=== PATIENT | female | born 1935 | race Hispanic/Latino ===

== ENCOUNTER 2017-02-09 10:15 | Emergency (ER) | payer MEDICARE ==
[2017-02-09 11:19] LABS: Bilirubin Negative (Negative); Blood, Urine Moderate (Negative); Glucose, Urine (Dipstick) Negative (Negative); Ketone, Urine Negative (Negative); Nitrite Positive (Negative); Protein, Urine (Dipstick) Negative (Neg-Trace); Urobilinogen 0.2 mg/dL (0.2-1.0)
[2017-02-09 11:24] LABS: Bacteria/HPF 3+ HPF (None Seen); Hyaline Casts/LPF 4-6 HYALINE CAST LPF (0-3 Hyaline); Squamous Epithelial None Seen HPF (0-3); WBC/HPF 21-50 HPF (0-3)
== END 2017-02-09 11:25 | disposition home or self-care (01) ==
LOC: ERS 10:15
DX: R60.0 Localized edema (principal); I48.91 Unspecified atrial fibrillation; M86.9 Osteomyelitis, unspecified; Z86.73 Personal history of transient ischemic attack (TIA), and cerebral infarction without residual deficits; E11.9 Type 2 diabetes mellitus without complications; E78.5 Hyperlipidemia, unspecified; I11.0 Hypertensive heart disease with heart failure; I50.9 Heart failure, unspecified; Z79.84 Long term (current) use of oral hypoglycemic drugs; Z79.899 Other long term (current) drug therapy
CPT/HCPCS: 81003; 81015; 87077; 87086; 87186; 99283

== ENCOUNTER 2017-02-10 20:58 | Emergency (ER) | payer MEDICARE ==
[2017-02-10 22:11] LABS: Bilirubin Negative (Negative); Blood, Urine Moderate (Negative); Glucose, Urine (Dipstick) Negative (Negative); Ketone, Urine Trace mg/dL (Negative); Nitrite Positive (Negative); Protein, Urine (Dipstick) 100 mg/dL (Neg-Trace); Urobilinogen 0.2 mg/dL (0.2-1.0)
[2017-02-10 22:12] LABS: Bacteria/HPF 4+ HPF (None Seen); Squamous Epithelial 0-3 HPF (0-3); WBC/HPF 21-50 HPF (0-3)
[2017-02-10 22:20] LABS: Hyaline Casts/LPF 0-3 HYALINE CAST LPF (0-3 Hyaline); Yeast-All Forms None Seen HPF (None Seen)
[2017-02-10 22:55] LABS: #Lymphocytes 1.2 thou/uL (1.20-3.40); #Monocytes 0.2 thou/uL (0.11-0.59); #Neutrophils 9.1 thou/uL (1.40-6.50); %Basophils 0.1 % (0.0-1.0); %Eosinophils 0.2 % (0.0-10.0); %Lymphocytes 11.2 % (21.0-51.0); %Monocytes 1.6 % (0.0-10.0); Hematocrit 32.6 % (36.0-47.0); Mean Platelet Volume 8.5 fL (7.4-10.4); Red Blood Cell (RBC) Count 3.62 mill/uL (4.20-5.40); White Blood Cell (WBC) Count 10.4 thou/uL (4.8-10.8)
[2017-02-10 23:03] LABS: Lactic Acid - Sepsis 0.9 mmol/L (0.5-2.2)
[2017-02-10 23:09] LABS: ALT (SGPT) Less than 7 U/L (8-55); AST (SGOT) 12 U/L (5-34); Alkaline Phosphatase 78 U/L (40-150); Anion Gap 12 mmol/L (10-20); BUN (Urea Nitrogen) 22 mg/dL (9.8-20.1); Bilirubin, Total 1.7 mg/dL (0.2-1.2); Calc. Creatinine Clearance 0 mL/min (70-130); Calcium 8.8 mg/dL (7.8-10.44); Carbon Dioxide 26 mmol/L (23-31); Chloride 97 mmol/L (98-107); Estimated GFR-MDRD 82; Globulin 4.3 g/dL (2.4-3.5); Protein, Total 7.2 g/dL (6.0-8.3)
[2017-02-10] MEDS ORDERED: cefTRIAXone\\ROCEPHIN 1 GM VIAL ONE (23:25)
== END 2017-02-11 00:03 | disposition home or self-care (01) ==
LOC: ERS 20:58
DX: N39.0 Urinary tract infection, site not specified (principal); B96.4 Proteus (mirabilis) (morganii) as the cause of diseases classified elsewhere; I50.9 Heart failure, unspecified; I48.91 Unspecified atrial fibrillation; M86.9 Osteomyelitis, unspecified; I69.30 Unspecified sequelae of cerebral infarction; E11.9 Type 2 diabetes mellitus without complications; E78.5 Hyperlipidemia, unspecified; I10 Essential (primary) hypertension; Z79.01 Long term (current) use of anticoagulants; Z92.21 Personal history of antineoplastic chemotherapy; Z79.899 Other long term (current) drug therapy
CPT/HCPCS: 36415; 80053; 81003; 81015; 83605; 85025; 87040; 96365; J0696

== ENCOUNTER 2017-04-21 19:33 | Inpatient (IN) | payer MEDICARE ==
[2017-04-21 20:05] LABS: Bilirubin Negative (Negative); Blood, Urine Moderate (Negative); Clarity TURBID (Clear); Glucose, Urine (Dipstick) Negative (Negative); Leukocyte Large (Negative); Nitrite Positive (Negative); Protein, Urine (Dipstick) 30 mg/dL (Neg-Trace); Urobilinogen 0.2 mg/dL (0.2-1.0); pH, Urine 8.5 (5.0-9.0)
[2017-04-21 20:07] LABS: Bacteria/HPF 4+ HPF (None Seen); Hyaline Casts/LPF 7-10 HYALINE CAST LPF (0-3 Hyaline); Pathc Cast-AUWi Flag 1.24 (0-2.49); Squamous Epithelial 0-3 HPF (0-3); WBC/HPF 21-50 HPF (0-3)
[2017-04-21 20:13] LABS: #Monocytes 0.4 thou/uL (0.11-0.59); #Neutrophils 13.1 thou/uL (1.40-6.50); %Basophils 0.3 % (0.0-1.0); %Eosinophils 0.1 % (0.0-10.0); %Lymphocytes 18.1 % (21.0-51.0); %Monocytes 2.2 % (0.0-10.0); %Neutrophils 79.4 % (42.0-75.0); Hemoglobin 10.7 g/dL (12.0-16.0); Mean Corpuscular HGB CONC 35.8 g/dL (32.0-36.0); Mean Corpuscular Hemoglobin 32.5 pg (27.0-31.0); Mean Corpuscular Volume 90.8 fl (81.0-99.0); Mean Platelet Volume 8.4 fL (7.4-10.4); Platelet Count 255 thou/uL (130-400); RBC Distribution Width 15.2 % (11.5-14.5); White Blood Cell (WBC) Count 16.5 thou/uL (4.8-10.8)
[2017-04-21 20:18] LABS: Yeast-All Forms None Seen HPF (None Seen)
[2017-04-21] MEDS ORDERED: Piperacillin/Tazobactam 4.5 GM in Sodium Chloride 0.9% 100 ML IVPB SCH (20:45)
[2017-04-21] MEDS ORDERED: Acetaminophen 650 MG Suppository ONE (21:16)
--- NOTE | 2017-04-21 21:24 | RAD ---
PORTABLE CHEST 04/21/17 PROVIDED CLINICAL HISTORY: Cough. FINDINGS: Comparison is made with study dated 10/27/16. Cardiac silhouette remains enlarged. Vascular calcification involve the aortic arch. The left lung ba se is poorly evaluated on the basis of cardiomegaly. A portion of the left hemidiaphragm is poorly se en which could indicate left basilar infiltrate. The right lung appears clear. No evidence for pneumo thorax or pleural fluid. IMPRESSION: Cardiomegaly with possibility of left basilar infiltrate not excluded. Consider correlation with a la teral view. POS: [facility]
[2017-04-21 21:27] LABS: Albumin 3.1 g/dL (3.4-4.8)
[2017-04-21 21:28] LABS: Chloride 99 mmol/L (98-107); Potassium 3.7 mmol/L (3.5-5.1); Sodium 133 mmol/L (136-145)
[2017-04-21 21:29] LABS: Calcium 8.9 mg/dL (7.8-10.44)
[2017-04-21 21:30] LABS: Globulin 4.1 g/dL (2.4-3.5); Glucose 180 mg/dL (83-110); Protein, Total 7.2 g/dL (6.0-8.3)
[2017-04-21 21:31] LABS: Anion Gap 14 mmol/L (10-20); Bilirubin, Total 1.3 mg/dL (0.2-1.2); Carbon Dioxide 24 mmol/L (23-31)
[2017-04-21 21:32] LABS: Alkaline Phosphatase 73 U/L (40-150)
[2017-04-21 21:33] LABS: Calc. Creatinine Clearance 0 mL/min (70-130); Estimated GFR-MDRD 79
[2017-04-21 21:34] LABS: BUN (Urea Nitrogen) 21 mg/dL (9.8-20.1)
[2017-04-21 21:35] LABS: ALT (SGPT) Less than 7 U/L (8-55); AST (SGOT) 9 U/L (5-34)
[2017-04-21] MEDS ORDERED: Acetaminophen 325 MG TAB PO PRN (22:25)
[2017-04-21] MEDS ORDERED: Ondansetron ODT 4 MG TAB SL PRN (22:25)
[2017-04-21] MEDS ORDERED: Ondansetron HCl/PF 4 MG/2 ML Vial IVP PRN (22:25)
[2017-04-21] MEDS ORDERED: Sodium Chloride 0.9% 1,000 ML IV SCH (22:30)
[2017-04-22] LABS: Lactic Acid 1.1 mmol/L (0.5-2.2)
[2017-04-22] MEDS ORDERED: Acetaminophen 650 MG Suppository PR PRN (04:33)
[2017-04-22] MEDS ORDERED: Acetaminophen 325 MG TAB PO PRN (04:33)
[2017-04-22] MEDS ORDERED: Bisacodyl 5 MG TAB PO PRN (04:33)
[2017-04-22] MEDS ORDERED: Senokot S 8.6-50 MG TAB PO PRN (04:55)
[2017-04-22] MEDS ORDERED: HumaLOG 300 UNITS/3 ML VIAL SC PRN (04:57)
[2017-04-22] MEDS ORDERED: Dextrose 5% in Water 1,000 ML IV PRN (04:57)
[2017-04-22] MEDS ORDERED: Dextrose 50% Abboject 50 ML SYRINGE SLOW IVP PRN (04:57)
--- NOTE | 2017-04-22 05:32 | HP ---
PRIMARY CARE PHYSICIAN: Dr. Jessica Lara CHIEF COMPLAINT: Cough and fever. HISTORY OF PRESENT ILLNESS: Ms. Us is a pleasant 81-year-old lady who was seen at [facility] on 04/22/2017. She started having cough 2 days ago. The cough was productive of minimal amount of sputum. She also reports having fevers, bodyaches and headaches. She denies any chest pain or shortness of breath. She has a chronic Fair catheter, which was replaced earlier this week. She denies any nausea, vomiting, diarrhea, or abdominal pain. REVIEW OF SYSTEMS: The following complete review of systems was negative, unless otherwise mentioned in the HPI or below: Constitutional: Weight loss or gain, ability to conduct usual activities. Skin: Rash, itching. Eyes: Double vision, pain. ENT/Mouth: Nose bleeding, neck stiffness, pain, tenderness. Cardiovascular: Palpitations, dyspnea on exertion, orthopnea. Respiratory: Shortness of breath, wheezing, cough, hemoptysis, fever or night sweats. Gastrointestinal: Poor appetite, abdominal pain, heartburn, nausea, vomiting, constipation, or diarrhea. Genitourinary: Urgency, frequency, dysuria, nocturia. Musculoskeletal: Pain, swelling. Neurologic/Psychiatric: Anxiety, depression. Allergy/Immunologic: Skin rash, bleeding tendency. 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 PAST SURGICAL HISTORY: Significant for open reduction internal fixation of femur, cholecystectomy, h ysterectomy, cataract surgery, knee and foot surgery. ALLERGIES: LASIX, NATURAL FIBER. SOCIAL HISTORY: The patient denies tobacco use, alcohol use or recreational drug use. CODE STATUS: I discussed her code status. She is FULL CODE. She lives at home. She reports that s he has been bed bound for several months. FAMILY HISTORY: No family history of premature coronary artery disease. CURRENT MEDICATIONS: These include tramadol 50 mg every 6 hours as needed, ascorbic acid 500 mg aicha y, vitamin B12 1000 mcg daily, pravastatin 20 mg daily, metoprolol succinate 50 mg daily, metformin 5 00 mg 2 times a day as needed, Imbruvica 140 mg tablets 3 tablets daily, Lasix 40 mg daily, lisinopri l 10 mg at bedtime, Eliquis 2.5 mg 2 times a day, potassium chloride 20 mEq daily, ferrous sulfate 32 5 mg daily, Colace 100 mg daily. PHYSICAL EXAMINATION: GENERAL: Ms. Us is awake and alert, not in acute distress. VITAL SIGNS: Blood pressure is 172/64. Pulse is 94. She is breathing at rate of 20 and saturating 96% on 2 liters of oxygen. Temperature is 102.4 degrees rectally. When she presented to the emergen cy room, she had a pulse of 106, respiratory rate of 23. EYES: No scleral icterus. No conjunctival pallor. ENT: Dry mucosal membranes, no oropharyngeal erythema or exudates. NECK: Supple, nontender, normal range of movement. Trachea is midline. RESPIRATORY: Accessory muscles of breathing are not active. Chest wall movements are symmetric bila terally. LUNGS: Clear to auscultation without wheeze, rhonchi or crepitations. ABDOMEN: Soft, nontender, bowel sounds heard, no hepatomegaly, no splenomegaly. CARDIOVASCULAR: S1 and S2 are heard, regular. Peripheral pulses palpable. No carotid bruit, no per icardial rub. GENITOURINARY: She has a Fair catheter in place. NEUROLOGIC: She has diminished power in both lower extremities, worse on the right side. She has a right facial droop. MUSCULOSKELETAL: Power in the extremities as described above. SKIN: No rashes or subcutaneous nodules. PSYCHIATRIC: Normal mood and normal affect, patient is oriented to person, place and time. LYMPHATIC: No cervical lymphadenopathy. LABORATORY DATA: Ms. Us labs and investigations were reviewed. I reviewed her electrocardiogram , which shows atrial fibrillation, no ST changes to suggest an acute coronary syndrome. I also revie wed her chest x-ray, which shows a possible left lower lobe infiltrate. Laboratory investigations showed leukocytosis with 15,500 white cells, of which 79.4% are neutrophils , normocytic anemia with hemoglobin of 10.7, normal platelet count, decreased sodium of 133, elevated blood urea nitrogen of 21, normal creatinine, elevated lactic acid of 3.0, which has decreased to 1. 1 subsequently, elevated total bilirubin of 1.3, otherwise unremarkable liver profile. Urinalysis is positive for blood, nitrite and leukocyte esterase. ASSESSMENT AND PLAN: Ms. Us is a pleasant 81-year-old lady who was seen at [facility] on 04/22/2017. Her problem list includes: 1. Sepsis: Ms. Us is presenting with sepsis. Source of infection likely pneumonia or urinary t ract infection. She will be admitted to the hospital and treated with broad spectrum antibiotics. W e will await blood cultures and urine cultures. 2. Hyponatremia; mild, we will recheck. 3. Dehydration: The patient is clinically dehydrated. We will provide gentle hydration, given her history of congestive heart failure. 4. Diabetes mellitus. I will start Accu-Cheks and insulin sliding scale. 5. Mildly elevated total bilirubin. Likely insignificant, given the unremarkable liver profile othe rwise. 6. History of stroke: Continue Eliquis. 7. Atrial fibrillation. Continue home medications including beta rosendo and Eliquis. 8. Dyslipidemia: Continue statins. 9. Hypertension: Monitor vital signs, titrate antihypertensives as needed. Many thanks for allowing me to participate in your patient's care. Please feel free to contact me wi th any questions or concerns. LEVEL OF RISK: High. LEVEL OF COMPLEXITY: High.
[2017-04-22] MEDS: traMADol HCl 50 MG TAB PO SCH ×4 (06:14→23:56)
[2017-04-22] MEDS: Piperacillin/Tazobactam 4.5 GM in Sodium Chloride 0.9% 100 ML IVPB SCH ×3 (06:14→20:29)
[2017-04-22] MEDS: Sodium Chloride 0.9% 1,000 ML IV SCH ×2 (06:19→14:58)
[2017-04-22] MEDS: Ferrous Sulfate 325 MG TAB PO SCH ×2 (09:25→17:06)
[2017-04-22] MEDS: Potassium Chloride 20 MEQ TAB PO SCH (09:26)
[2017-04-22] MEDS: Apixaban 5 MG TAB PO SCH ×2 (09:26→20:28)
[2017-04-22] MEDS: Cyanocobalamin (Vitamin B-12) 1,000 MCG TAB PO SCH (09:26)
[2017-04-22] MEDS: Docusate 100 MG CAP PO SCH ×2 (09:26→20:29)
[2017-04-22] MEDS: Ascorbic Acid 500 mg Chewable Tablet PO SCH (09:26)
[2017-04-22] MEDS: Furosemide 40 MG TAB PO SCH (09:26)
[2017-04-22] MEDS: Ibrutinib [Imbruvica] 140 MG PO SCH (09:27)
[2017-04-22] MEDS: Guaifenesin DM 100-10/5 ML UDCUP PO PRN ×2 (13:10→20:29)
--- NOTE | 2017-04-22 15:12 | PDOC.PN ---
- Subjective Encounter Start Date: 04/22/17 Encounter Start Time: 14:50 Subjective: f/u for sepsis suspected pulmonic and urine source. Ucx showing > 100K -: gm - rods on Vanc/Zosyn. PCXR with ? L basilar infiltrate. Feels better -: overall. - Objective Resuscitation Status: Resuscitation Status FULL:Full Resuscitation MAR Reviewed: Yes Vital Signs & Weight: Vital Signs (12 hours) Temp Pulse Resp BP Pulse Ox 04/22/17 11:10 98.3 F 67 14 124/58 L 98 04/22/17 08:35 98.0 F 74 18 04/22/17 08:15 98.0 F 74 18 123/56 L 99 04/22/17 03:44 98.2 F 94 20 101/51 L 97 Weight Weight 118 lb 9.6 oz I&O: 04/21/17 04/22/17 04/23/17 06:59 06:59 06:59 Intake Total 1420 Output Total 420 Balance 1000 Result Diagrams: 04/21/17 19:45 04/21/17 21:08 Additional Labs: Accuchecks 04/22/17 04/22/17 11:08 05:48 POC Glucose 153 H 192 H Microbiology 04/21/17 20:32 Nasal swab Influenza Types A,B Direct EIA - Final 04/21/17 20:24 Venous blood - Left Hand Blood Culture - Preliminary Specimen has been received and culture in progress. No Growth to date. 04/21/17 20:24 Venous blood - Left Arm Blood Culture - Preliminary Specimen has been received and culture in progress. No Growth to date. 04/21/17 19:50 Urine alvarado catheter Urine Culture - Preliminary Gram Negative [facility] Reviewed by me: Yes (PCXR - ? L basilar infiltrate) EKG Reviewed by me: Yes (Tele - A-fib with variable rate) Phys Exam - Physical Examination Constitutional: NAD alert, responsive HEENT: PERRLA, oral pharynx no lesions Neck: no JVD, supple coarse sounds L> R Respiratory: no wheezing Cardiovascular: irregular Gastrointestinal: soft, non-tender, no distention, positive bowel sounds Musculoskeletal: no edema, pulses present Neurological: moves all 4 limbs Psychiatric: A&O x 3 Skin: normal turgor, cap refill <2 seconds Dx/Plan (1) Pneumonia Code(s): J18.9 - PNEUMONIA, UNSPECIFIED ORGANISM Status: Suspected Qualifiers: Laterality: left Lung location: lower lobe of lung Comment: Suspected gm + cocci, continue Vancomycin and Zosyn, pulmonary supportive care, mucolytics (2) Hyponatremia Code(s): E87.1 - HYPO-OSMOLALITY AND HYPONATREMIA Status: Chronic (3) Sepsis due to urinary tract infection Code(s): A41.9 - SEPSIS, UNSPECIFIED ORGANISM; N39.0 - URINARY TRACT INFECTION, SITE NOT SPECIFIED Status: Acute Comment: Suspected urine source with chronic indwelling Alvarado, continue current abx therapy and monitor cx results (4) Afib Code(s): I48.91 - UNSPECIFIED ATRIAL FIBRILLATION Status: Chronic Qualifiers: Comment: rate controlled (5) Chronic anemia Code(s): D64.9 - ANEMIA, UNSPECIFIED Status: Chronic Comment: from myeloma, followed by cy Small (6) Type II diabetes mellitus Status: Chronic Qualifiers: - Plan plan discussed w/ family, continue antibiotics, 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
[2017-04-22] MEDS ORDERED: Vancomycin HCl 750 MG in Sodium Chloride 0.9% 250 ML 250 ML IVPB SCH (20:00)
[2017-04-22] MEDS ORDERED: Sodium Chloride 0.9% 10 ML ONE (20:12)
[2017-04-22] MEDS ORDERED: Budesonide 0.5 MG/2 ML NEB ONE (20:21)
[2017-04-22] MEDS: Lisinopril 10 MG TAB PO SCH (20:29)
[2017-04-22] MEDS: Vancomycin HCl 750 MG in Sodium Chloride 0.9% 250 ML 250 ML IVPB SCH (22:09)
[2017-04-22] MEDS: Simvastatin 5 MG TAB PO SCH (22:10)
[2017-04-22] MEDS ORDERED: Mag-Al 1200 mg/1200 mg/30 ML UDCUP PO SCH (23:45)
[2017-04-23 05:55] LABS: #Lymphocytes 2.4 thou/uL (1.20-3.40); #Monocytes 0.5 thou/uL (0.11-0.59); #Neutrophils 4.7 thou/uL (1.40-6.50); %Basophils 0.4 % (0.0-1.0); %Eosinophils 0.6 % (0.0-10.0); %Lymphocytes 31.5 % (21.0-51.0); %Monocytes 6.7 % (0.0-10.0); %Neutrophils 60.7 % (42.0-75.0); Hemoglobin 7.8 g/dL (12.0-16.0); Mean Corpuscular HGB CONC 33.6 g/dL (32.0-36.0); Mean Corpuscular Hemoglobin 30.8 pg (27.0-31.0); Mean Corpuscular Volume 91.7 fl (81.0-99.0); Mean Platelet Volume 7.9 fL (7.4-10.4); Platelet Count 175 thou/uL (130-400); RBC Distribution Width 14.4 % (11.5-14.5); Red Blood Cell (RBC) Count 2.53 mill/uL (4.20-5.40); White Blood Cell (WBC) Count 7.7 thou/uL (4.8-10.8)
[2017-04-23] MEDS: Piperacillin/Tazobactam 4.5 GM in Sodium Chloride 0.9% 100 ML IVPB SCH ×2 (06:08→13:37)
[2017-04-23] MEDS: traMADol HCl 50 MG TAB PO SCH ×3 (06:08→18:03)
[2017-04-23 06:12] LABS: Anion Gap 11 mmol/L (10-20); BUN (Urea Nitrogen) 24 mg/dL (9.8-20.1); Calc. Creatinine Clearance 52 mL/min (70-130); Calcium 8.5 mg/dL (7.8-10.44); Carbon Dioxide 23 mmol/L (23-31); Chloride 102 mmol/L (98-107); Estimated GFR-MDRD 74; Glucose 109 mg/dL (83-110); Potassium 3.4 mmol/L (3.5-5.1); Sodium 133 mmol/L (136-145)
[2017-04-23] MEDS: Sodium Chloride 0.9% 1,000 ML IV SCH (06:25)
[2017-04-23] MEDS: Potassium Chloride 20 MEQ TAB PO SCH ×2 (09:07→21:05)
[2017-04-23] MEDS: Docusate 100 MG CAP PO SCH ×2 (09:07→09:09)
[2017-04-23] MEDS: Apixaban 5 MG TAB PO SCH ×2 (09:07→21:05)
[2017-04-23] MEDS: Ferrous Sulfate 325 MG TAB PO SCH ×2 (09:07→18:04)
[2017-04-23] MEDS: Furosemide 40 MG TAB PO SCH (09:08)
[2017-04-23] MEDS: Ibrutinib [Imbruvica] 140 MG PO SCH (09:08)
[2017-04-23] MEDS: Ascorbic Acid 500 mg Chewable Tablet PO SCH (09:08)
[2017-04-23] MEDS: Cyanocobalamin (Vitamin B-12) 1,000 MCG TAB PO SCH (09:08)
[2017-04-23 14:43] VITALS: BMI 24.1
--- NOTE | 2017-04-23 15:07 | PDOC.PN ---
- Subjective Encounter Start Date: 04/23/17 Encounter Start Time: 15:05 Subjective: f/u for sepsis suspected urine source with Proteus spp on Ucx results. -: Receiving Zosyn and Vancomycin. c/o some diarrhea. Appetite ok. - Objective Resuscitation Status: Resuscitation Status FULL:Full Resuscitation MAR Reviewed: Yes Vital Signs & Weight: Vital Signs (12 hours) Temp Pulse Resp BP Pulse Ox 04/23/17 13:00 97.4 F L 68 17 142/65 H 100 04/23/17 08:20 98.2 F 75 18 130/67 97 04/23/17 08:00 97.8 F 67 16 97 04/23/17 03:52 97.8 F 67 16 123/53 L 99 Weight Admit Weight 118 lb 9.6 oz Weight 123 lb 9.6 oz I&O: 04/22/17 04/23/17 04/24/17 06:59 06:59 06:59 Intake Total 1420 1630 240 Output Total 420 600 Balance 1000 1030 240 Result Diagrams: 04/23/17 05:19 04/23/17 05:19 Additional Labs: Accuchecks 04/23/17 04/23/17 04/22/17 13:10 05:08 20:35 POC Glucose 132 H 118 H 120 H 04/22/17 16:50 POC Glucose 116 H Microbiology 04/22/17 23:24 Stool C. difficile GDH Antigen & Toxins - Final 04/21/17 20:32 Nasal swab Influenza Types A,B Direct EIA - Final 04/21/17 20:24 Venous blood - Left Hand Blood Culture - Preliminary Specimen has been received and culture in progress. No Growth to date. 04/21/17 20:24 Venous blood - Left Hand Blood Culture - Preliminary NO GROWTH AT 48 HOURS 04/21/17 20:24 Venous blood - Left Arm Blood Culture - Preliminary Specimen has been received and culture in progress. No Growth to date. 04/21/17 20:24 Venous blood - Left Arm Blood Culture - Preliminary NO GROWTH AT 48 HOURS 04/21/17 19:50 Urine alvarado catheter Urine Culture - Preliminary Proteus mirabilis 04/21/17 19:50 Urine alvarado catheter Urine Culture - Preliminary Gram Negative [facility] Laboratory Tests 04/21/17 04/21/17 19:45 21:08 WBC 16.5 H Hgb 10.7 L Sodium 133 L Potassium 3.7 EKG Reviewed by me: Yes (Tele - A-fib in 70's) Phys Exam - Physical Examination Constitutional: NAD HEENT: PERRLA, oral pharynx no lesions Neck: no JVD, supple Respiratory: no wheezing Cardiovascular: irregular Gastrointestinal: soft, non-tender, no distention, positive bowel sounds Musculoskeletal: no edema, pulses present R-sided weakness and R facial droop, chronic Neurological: normal sensation, moves all 4 limbs Psychiatric: A&O x 3 Skin: normal turgor, cap refill <2 seconds Dx/Plan (1) Pneumonia Code(s): J18.9 - PNEUMONIA, UNSPECIFIED ORGANISM Status: Suspected Qualifiers: Laterality: left Lung location: lower lobe of lung Comment: Suspected gm + cocci, continue Vancomycin and Zosyn, pulmonary supportive care, mucolytics (2) Hyponatremia Code(s): E87.1 - HYPO-OSMOLALITY AND HYPONATREMIA Status: Chronic Comment: Stable (3) Sepsis due to urinary tract infection Code(s): A41.9 - SEPSIS, UNSPECIFIED ORGANISM; N39.0 - URINARY TRACT INFECTION, SITE NOT SPECIFIED Status: Acute Comment: Suspected urine source with chronic indwelling Alvarado, continue current abx therapy, Proteus spp noted on cx (4) Afib Code(s): I48.91 - UNSPECIFIED ATRIAL FIBRILLATION Status: Chronic Qualifiers: Comment: rate controlled (5) Chronic anemia Code(s): D64.9 - ANEMIA, UNSPECIFIED Status: Chronic Comment: from myeloma, followed by cy Small (6) Type II diabetes mellitus Status: Chronic Qualifiers: - Plan plan discussed w/ family, continue antibiotics, PT/OT, 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
[2017-04-23] MEDS ORDERED: Loperamide HCl 2 MG CAP PO PRN (15:20)
[2017-04-23 19:33] LABS: Vancomycin, Trough 12.1 ug/mL
[2017-04-23] MEDS: Vancomycin HCl 750 MG in Sodium Chloride 0.9% 250 ML 250 ML IVPB SCH (21:04)
[2017-04-23] MEDS: Lisinopril 10 MG TAB PO SCH (21:05)
[2017-04-23] MEDS: Simvastatin 5 MG TAB PO SCH (21:05)
[2017-04-24] MEDS: traMADol HCl 50 MG TAB PO SCH ×5 (00:06→23:48)
[2017-04-24] MEDS: Piperacillin/Tazobactam 4.5 GM in Sodium Chloride 0.9% 100 ML IVPB SCH ×4 (00:07→23:39)
[2017-04-24 06:01] LABS: #Eosinphils 0.1 thou/uL (0.0-0.7); #Lymphocytes 1.6 thou/uL (1.20-3.40); #Monocytes 0.3 thou/uL (0.11-0.59); %Basophils 0.7 % (0.0-1.0); %Eosinophils 1.7 % (0.0-10.0); %Lymphocytes 31.7 % (21.0-51.0); %Monocytes 6.3 % (0.0-10.0); %Neutrophils 59.6 % (42.0-75.0); Hemoglobin 6.5 g/dL (12.0-16.0); Mean Corpuscular HGB CONC 33.4 g/dL (32.0-36.0); Mean Corpuscular Hemoglobin 30.6 pg (27.0-31.0); Mean Corpuscular Volume 91.6 fl (81.0-99.0); Mean Platelet Volume 8.1 fL (7.4-10.4); Platelet Count 174 thou/uL (130-400); RBC Distribution Width 14.3 % (11.5-14.5); Red Blood Cell (RBC) Count 2.13 mill/uL (4.20-5.40); White Blood Cell (WBC) Count 5.1 thou/uL (4.8-10.8)
[2017-04-24 06:07] LABS: Anion Gap 12 mmol/L (10-20); BUN (Urea Nitrogen) 20 mg/dL (9.8-20.1); Calc. Creatinine Clearance 53 mL/min (70-130); Calcium 8.4 mg/dL (7.8-10.44); Carbon Dioxide 21 mmol/L (23-31); Chloride 106 mmol/L (98-107); Estimated GFR-MDRD 77; Glucose 94 mg/dL (83-110); Potassium 3.3 mmol/L (3.5-5.1); Sodium 136 mmol/L (136-145)
[2017-04-24] MEDS: Apixaban 5 MG TAB PO SCH (09:47)
[2017-04-24] MEDS: Potassium Chloride 20 MEQ TAB PO SCH ×2 (09:48→21:13)
[2017-04-24] MEDS: Ascorbic Acid 500 mg Chewable Tablet PO SCH (09:48)
[2017-04-24] MEDS: Cyanocobalamin (Vitamin B-12) 1,000 MCG TAB PO SCH (09:48)
[2017-04-24] MEDS: Furosemide 40 MG TAB PO SCH (09:48)
[2017-04-24] MEDS: Ferrous Sulfate 325 MG TAB PO SCH ×2 (09:48→17:42)
[2017-04-24] MEDS: Ibrutinib [Imbruvica] 140 MG PO SCH (09:49)
[2017-04-24] MEDS ORDERED: Potassium Chloride 20 MEQ TAB PO SCH (10:30)
--- NOTE | 2017-04-24 13:12 | CON ---
DATE OF CONSULTATION: 04/24/2017 DATE OF ADMISSION: 04/21/2017 HISTORY OF PRESENT ILLNESS: Ms. Us is an 81-year-old female with a history of multiple myeloma a s well as bilateral hip fractures, who presented to the hospital with pneumonia and sepsis. She has stabilized, but her hemoglobin has fallen from 10.7 on admission down to 6.5 today, which is the reas on for the consult. The patient denies any bleeding, no blood in her stool or urine, and no noseblee ds. She does have chronic anemia and has had blood transfusions in the past. She has not had treatm ent for multiple myeloma since 08/2016. She did break both her hips in October and has been bedridden e yovany since hip fractures in 10/2016. She does not even get out of the bed in her own home and is bed bound. She takes Eliquis for a history of DVT and pulmonary embolism as well as atrial fibrillation. She does not feel weak or fatigued today. In fact, she feels much better than when she first came to the hospital. She is not short of breath. She is sitting up eating and has no other complaints. She does have pain in her right hip and states it seems a little worse right now, but otherwise she is stable. PAST MEDICAL HISTORY: 1. Multiple myeloma, off all treatments since 08/2016. 2. Atrial fibrillation. 3. Congestive heart failure. 4. Diabetes mellitus, type 2. 5. Hyperlipidemia. 6. History of stroke. 7. Hypertension. 8. Chronic renal insufficiency. 9. Chronic anemia, likely secondary to chronic insufficiency as well as multiple myeloma. PAST SURGICAL HISTORY: Significant for, 1. ORIF of bilateral femurs in 2015. She had fractures in 2017 that were not surgically repaired. 2. Cholecystectomy. 3. Multiple other orthopedic surgeries. ALLERGIES: LASIX. SOCIAL HISTORY: She denies tobacco or alcohol use. She lives at home with her and her daugh ter is here and appears quite supportive. FAMILY HISTORY: Negative for hematologic disease. PHYSICAL EXAMINATION: VITAL SIGNS: Temperature 99.2, blood pressure 143/63, respirations 18, O2 sat 97% on 2 liters nasal cannula, pulse in the 70s and irregular. GENERAL: She is quite pleasant, in no acute distress. HEENT: Extraocular muscles are intact. Sclerae are anicteric. NECK: Supple, without lymphadenopathy. CARDIOVASCULAR: Regular rhythm. LUNGS: Clear to auscultation, but decreased inspiratory effort. ABDOMEN: Hypoactive bowel sounds. Soft, nontender, nondistended. EXTREMITIES: She does have SCDs in place, no edema noted. LABORATORY AND X-RAY FINDINGS: White blood cell count 5.1, hemoglobin 6.5, platelets 174, MCV 91, so dium 136, potassium 3.3, chloride 106, CO2 of 21, BUN 20, creatinine 0.7, glucose 94 on admission, al bumin 3.1, AST 9, ALT 7. ASSESSMENT: Ms. Us is an 81-year-old female with: 1. Pneumonia and sepsis, improved. 2. Acute on chronic anemia, asymptomatic. 3. History of atrial fibrillation and deep vein thrombosis, now on Eliquis. 4. History of bilateral hip fractures, now bedbound. PLAN: 1. I would recommend holding the Eliquis while we rule out a GI bleed with 3 occult blood tests. If these come back negative, then I think we could add the Eliquis back. 2. She will be typed and crossed and transfused 2 units, if her hemoglobin stabilizes then likely no further workup is needed, and this may be dilutional as well as multifactorial from her chronic medi byron problems. 3. I would watch the hip pain, and if her hemoglobin does not stabilize, she may need a CT scan of t he abdomen to rule out retroperitoneal bleed since she is on the Eliquis. 4. We will recheck her liver function test and an LDH to make sure she is not hemolyzing, although I think this is unlikely. 5. We will follow with you.
[2017-04-24 13:20] LABS: ALT (SGPT) Less than 7 U/L (8-55); AST (SGOT) 10 U/L (5-34); Albumin 2.7 g/dL (3.4-4.8); Alkaline Phosphatase 53 U/L (40-150); Bilirubin, Direct 0.5 mg/dL (0.1-0.3); Bilirubin, Total 0.9 mg/dL (0.2-1.2); LDH 139 U/L (125-220); Protein, Total 6.4 g/dL (6.0-8.3)
--- NOTE | 2017-04-24 16:52 | PDOC.PN ---
- Subjective Encounter Start Date: 04/24/17 Encounter Start Time: 16:49 Subjective: feels better.no c/o BRB-CO/vomiting blood or vaginal bleed -: no chest pain/sob - Objective Resuscitation Status: Resuscitation Status FULL:Full Resuscitation MAR Reviewed: Yes Vital Signs & Weight: Vital Signs (12 hours) Temp Pulse Pulse Resp BP BP Pulse Ox 04/24/17 16:02 97.4 F L 71 16 141/63 H 04/24/17 15:40 98.5 F 63 16 151/66 H 98 04/24/17 13:20 98.6 F 68 17 135/61 04/24/17 13:06 98.4 F 72 18 150/68 H 04/24/17 12:00 98.2 F 66 13 135/62 99 04/24/17 08:00 99.2 F 75 18 143/63 H 97 Weight Admit Weight 118 lb 9.6 oz Weight 123 lb 4.8 oz I&O: 04/23/17 04/24/17 04/25/17 06:59 06:59 06:59 Intake Total 1630 2280 1070 Output Total 600 1250 Balance 1030 1030 1070 Result Diagrams: 04/24/17 05:32 04/24/17 05:32 Additional Labs: Accuchecks 04/24/17 04/24/17 04/23/17 12:10 06:10 20:57 POC Glucose 122 H 104 157 H 04/23/17 17:15 POC Glucose 136 H Microbiology 04/22/17 23:24 Stool C. difficile GDH Antigen & Toxins - Final 04/21/17 20:32 Nasal swab Influenza Types A,B Direct EIA - Final 06/17/16 22:56 Urine alvarado catheter Urine Culture - Final Escherichia coli Presumptive Proteus mirabilis 04/21/17 20:24 Venous blood - Left Hand Blood Culture - Preliminary NO GROWTH AT 48 HOURS 04/21/17 20:24 Venous blood - Left Arm Blood Culture - Preliminary NO GROWTH AT 48 HOURS 04/21/17 19:50 Urine alvarado catheter Urine Culture - Preliminary Proteus mirabilis Laboratory Tests 02/25/17 04/21/17 04/23/17 11:30 19:45 05:19 Hgb 9.5 L 10.7 L 7.8 L 04/24/17 05:32 Hgb 6.5 L Phys Exam - Physical Examination Constitutional: NAD pale HEENT: PERRLA, moist MMs, sclera anicteric, oral pharynx no lesions Neck: no nodes, no JVD, supple, full ROM Respiratory: no wheezing, no rales, no rhonchi, clear to auscultation bilateral Cardiovascular: RRR, no significant murmur Gastrointestinal: soft, non-tender, no distention, positive bowel sounds Musculoskeletal: no edema, pulses present Neurological: non-focal, normal sensation, moves all 4 limbs Psychiatric: normal affect, A&O x 3 Skin: no rash Dx/Plan (1) Pneumonia Code(s): J18.9 - PNEUMONIA, UNSPECIFIED ORGANISM Status: Suspected Qualifiers: Laterality: left Lung location: lower lobe of lung Comment: Suspected gm + cocci, continue Vancomycin and Zosyn, pulmonary supportive care, mucolytics (2) Anemia Code(s): D64.9 - ANEMIA, UNSPECIFIED Status: Acute Qualifiers: Anemia type: unspecified type Qualified Code(s): D64.9 - Anemia, unspecified Comment: Drop in Hb from 10.7 to 6.5 in 48 hours (3) UTI (urinary tract infection) due to urinary indwelling catheter Code(s): T83.511A - I/I REACT D/T INDWELLING URETHRAL CATHETER, INIT; N39.0 - URINARY TRACT INFECTION, SITE NOT SPECIFIED Status: Acute Comment: proteus mirabilis (4) Afib Code(s): I48.91 - UNSPECIFIED ATRIAL FIBRILLATION Status: Chronic Qualifiers: Comment: rate controlled.On chronic anticoagulation (5) Chronic anemia Code(s): D64.9 - ANEMIA, UNSPECIFIED Status: Chronic Comment: from myeloma, followed by cy Small (6) Chronic combined systolic and diastolic congestive heart failure Code(s): I50.42 - CHRONIC COMBINED SYSTOLIC AND DIASTOLIC HRT FAIL Status: Chronic (7) H/O: CVA (cerebrovascular accident) Code(s): Z86.73 - PRSNL HX OF TIA (TIA), AND CEREB INFRC W/O RESID DEFICITS Status: Chronic (8) Type II diabetes mellitus Status: Chronic Qualifiers: (9) Waldenstrom macroglobulinemia Code(s): C88.0 - WALDENSTROM MACROGLOBULINEMIA Status: Chronic Comment: on Imbruvica - Plan continue antibiotics, PT/OT, social service liaison, out of bed/ambulate, DVT proph w/ SCDs Hold eliquis for now.check FOBTX3.consult oncology given H/o macroglobuline -: no active bleed apparent for now.Hemodynamically stable. -: transfuse 1 unit PRBC and recheck H/H.transfuse if Hb <7. -: cont ABx. final blood Cx pending. -: replace and recheck potassium. * . Review of Systems - Review of Systems Constitutional: negative: fever, chills, sweats, weakness, malaise, other ENT: negative: Ear Pain, Ear Discharge, Nose Pain, Nose Discharge, Nose Congestion, Mouth Pain, Mouth Swelling, Throat Pain, Throat Swelling, Other Respiratory: negative: Cough, Dry, Shortness of Breath, Hemoptysis, SOB with Excertion, Pleuritic Pain, Sputum, Wheezing Cardiovascular: negative: chest pain, palpitations, orthopnea, paroxysmal nocturnal dyspnea, edema, light headedness, other Gastrointestinal: negative: Nausea, Vomiting, Abdominal Pain, Diarrhea, Constipation, Melena, Hematochezia, Other Genitourinary: negative: Dysuria, Frequency, Incontinence, Hematuria, Retention , Other Musculoskeletal: negative: Neck Pain, Shoulder Pain, Arm Pain, Back Pain, Hand Pain, Leg Pain, Foot Pain, Other Neurological: negative: Weakness, Numbness, Incoordination, Change in Speech, Confusion, Seizures, Other - Medications/Allergies Allergies/Adverse Reactions: Allergies Allergy/AdvReac Type Severity Reaction Status Date / Time Latex, Natural Rubber AdvReac Mild Verified 04/21/17 22:59 Medications: Current Medications Acetaminophen (Tylenol) 650 mg PO Q4H PRN PRN Reason: Headache/Fever or Pain Acetaminophen (Tylenol) 650 mg CO Q4H PRN PRN Reason: Headache/Fever or Pain Ascorbic Acid (Vitamin C) 500 mg PO DAILY [facility] Last Admin: 04/24/17 09:48 Dose: 500 mg Bisacodyl (Dulcolax) 10 mg PO DAILYPRN PRN PRN Reason: Constipation Last Admin: 04/22/17 13:10 Dose: 10 mg Cyanocobalamin (Vitamin B-12) 1,000 mcg PO DAILY [facility] Last Admin: 04/24/17 09:48 Dose: 1,000 mcg Dextrose/Water (Dextrose 50%) 25 gm SLOW IVP PRN PRN PRN Reason: Hypoglycemia Ferrous Sulfate (Feosol) 325 mg PO BID-[facility] Last Admin: 04/24/17 09:48 Dose: 325 mg Furosemide (Lasix) 40 mg PO DAILY [facility] Last Admin: 04/24/17 09:48 Dose: 40 mg Glucagon (Glucagon) 1 mg IM PRN PRN PRN Reason: Hypoglycemia Guaifenesin/Dextromethorphan (Robitussin Dm) 15 ml PO Q4H PRN PRN Reason: Cough Last Admin: 04/22/17 20:29 Dose: 15 ml Piperacillin Sod/Tazobactam (Sod 4.5 gm/ Sodium Chloride) 100 mls @ 200 mls/hr IVPB Q8HR [facility] Last Admin: 04/24/17 15:35 Dose: 100 mls Vancomycin HCl 750 mg/ Sodium (Chloride) 250 mls @ 200 mls/hr IVPB 2000 [facility] Last Admin: 04/23/17 21:04 Dose: 250 mls Dextrose/Water (D5w) 1,000 mls @ 0 mls/hr IV .Q0M PRN; As Directed PRN Reason: Hypoglycemia Insulin Human Lispro (Humalog) 0 units SC .MILD SLIDING SCALE PRN PRN Reason: Mild Correctional Scale Lisinopril (Zestril) 10 mg PO [facility] Last Admin: 04/23/17 21:05 Dose: 10 mg Loperamide HCl (Imodium) 2 mg PO DAILY PRN PRN Reason: Diarrhea/Loose Stools Metoprolol Succinate (Toprol Xl) 50 mg PO DAILY [facility] Last Admin: 04/24/17 09:48 Dose: 50 mg Miscellaneous Medication (Pharmacy To Dose) 1 each IVPB ONE PRN PRN Reason: Pharmacy to dose Stop: 05/02/17 04:58 Ibrutinib [Imbruvica (] 140 Mg) 0 each PO DAILY [facility] Last Admin: 04/24/17 09:49 Dose: 1 each Potassium Chloride (K-Dur) 20 meq PO BID [facility] Last Admin: 04/24/17 09:48 Dose: 20 meq Simvastatin (Zocor) 10 mg PO HS [facility] Last Admin: 04/23/17 21:05 Dose: 10 mg Tramadol HCl (Ultram) 50 mg PO Q6HR [facility] Last Admin: 04/24/17 12:19 Dose: 50 mg
[2017-04-24 19:39] LABS: Vancomycin, Trough 13.9 ug/mL
[2017-04-24] MEDS: Simvastatin 5 MG TAB PO SCH (21:12)
[2017-04-24] MEDS: Lisinopril 10 MG TAB PO SCH (21:13)
[2017-04-24] MEDS: Vancomycin HCl 750 MG in Sodium Chloride 0.9% 250 ML 250 ML IVPB SCH (21:21)
[2017-04-25 05:59] LABS: #Eosinphils 0.1 thou/uL (0.0-0.7); #Lymphocytes 1.7 thou/uL (1.20-3.40); #Monocytes 0.4 thou/uL (0.11-0.59); %Basophils 0.1 % (0.0-1.0); %Eosinophils 1.1 % (0.0-10.0); %Lymphocytes 27.8 % (21.0-51.0); %Monocytes 5.9 % (0.0-10.0); %Neutrophils 65.1 % (42.0-75.0); Hemoglobin 8.5 g/dL (12.0-16.0); Mean Corpuscular HGB CONC 34.1 g/dL (32.0-36.0); Mean Corpuscular Hemoglobin 31.1 pg (27.0-31.0); Mean Corpuscular Volume 91.2 fl (81.0-99.0); Mean Platelet Volume 8.2 fL (7.4-10.4); Platelet Count 187 thou/uL (130-400); RBC Distribution Width 14.2 % (11.5-14.5); Red Blood Cell (RBC) Count 2.72 mill/uL (4.20-5.40); White Blood Cell (WBC) Count 6.2 thou/uL (4.8-10.8)
[2017-04-25] MEDS: Piperacillin/Tazobactam 4.5 GM in Sodium Chloride 0.9% 100 ML IVPB SCH ×2 (06:16→14:55)
[2017-04-25] MEDS: traMADol HCl 50 MG TAB PO SCH ×2 (06:17→10:34)
[2017-04-25 06:30] LABS: Anion Gap 10 mmol/L (10-20); BUN (Urea Nitrogen) 17 mg/dL (9.8-20.1); Calc. Creatinine Clearance 54 mL/min (70-130); Calcium 8.4 mg/dL (7.8-10.44); Carbon Dioxide 22 mmol/L (23-31); Chloride 105 mmol/L (98-107); Estimated GFR-MDRD 77; Glucose 112 mg/dL (83-110); Potassium 3.3 mmol/L (3.5-5.1); Sodium 134 mmol/L (136-145)
[2017-04-25] MEDS: Potassium Chloride 20 MEQ TAB PO SCH (10:33)
[2017-04-25] MEDS: Ferrous Sulfate 325 MG TAB PO SCH (10:33)
[2017-04-25] MEDS: Furosemide 40 MG TAB PO SCH (10:34)
[2017-04-25] MEDS: Cyanocobalamin (Vitamin B-12) 1,000 MCG TAB PO SCH (10:37)
[2017-04-25] MEDS: Ibrutinib [Imbruvica] 140 MG PO SCH (10:37)
[2017-04-25] MEDS: Ascorbic Acid 500 mg Chewable Tablet PO SCH (10:46)
[2017-04-25 16:14] VITALS: BP 165/70; TEMP 98.3
--- NOTE | 2017-04-26 | DIS ---
DATE OF ADMISSION: 04/21/2017 DATE OF DISCHARGE: 04/25/2017 DISCHARGE DIAGNOSES: 1. Left lower lobe community-acquired pneumonia with suspected gram-positive cocci, stable. 2. Urinary tract infection with Proteus mirabilis. 3. Acute on chronic normocytic anemia, multifactorial, status post 1 unit of packed red blood cells, stable. 4. Chronic atrial fibrillation with chronic anticoagulation with Eliquis. 5. Physical deconditioning. 6. History of cerebrovascular accident with residual right hemiparesis. 7. History of Waldenstrom macroglobulinemia. 8. Diabetes mellitus type 2, stable. CONSULTATIONS: Dr. Strickland with Hematology Service. PERTINENT LAB AND X-RAY FINDINGS: Sodium ranged between 133-136, potassium ranged between 3.3-3.7, c reatinine 0.73. Ferritin 448. Calcium 8.4. Lactic acid level 1.1. CBC showed a white blood cell c ount ranging between 5.1-16.5, hemoglobin ranged between 6.5-10.7, MCV 91. Urine culture dated 04/21 showed greater than 100,000 colonies of Proteus mirabilis sensitive to penicillins. Blood cult ures x2 dated 04/21/2017 showed no growth at 48 hours. Influenza A and B antigen dated 04/21/2017 ne gative. C. difficile antigen and toxin dated 04/22/2017 negative. Portable chest x-ray dated 2016 showed left basilar infiltrate. HOSPITAL COURSE: The patient was admitted to the telemetry unit after initially presenting with the question of sepsis syndrome with likely pulmonary source with left lower lobe infiltrate as stated pr eviously. The patient was also suspected for urinary tract infection with urine culture showing grea ter than 100,000 colonies of Proteus mirabilis. The patient was placed on broad-spectrum IV antibiot ic therapy throughout the hospital course transitioning to oral Augmentin to complete antibiotic ther apy. The patient rapidly clinically improved with antibiotic therapy and overall remained clinically stable. The patient has remained afebrile throughout the hospital course with normalization of whit e blood cell count prior to discharge. The patient was noted with chronic anemia with a questionable acute component with a hemoglobin trough of 6.5. The patient received 1 unit of packed red blood ce lls and monitored with stable values prior to discharge. The patient was evaluated by the Hematology Service with recommendations for close monitoring and stool Hemoccult assessment. The patient is wi th a longstanding history of Waldenstrom macroglobulinemia and chronic anemia dating back to 2013. T he patient's hemoglobin trend remained stable on further monitoring and the patient's vital signs rem ained stable. Current recommendations are to hold Eliquis until 04/27/2017. Overall, the patient re mained clinically stable and ready for discharge on 04/25/2017. DISCHARGE MEDICATIONS: 1. Augmentin 500 mg 1 tab p.o. b.i.d. x5 days. 2. Eliquis 2.5 mg p.o. b.i.d., hold x48 hours and resume on 04/27/2016. 3. Vitamin C 500 mg 1 tab p.o. daily. 4. Vitamin B12 1000 mcg p.o. daily. 5. Colace 100 mg 1 tab p.o. b.i.d. 6. Ferrous sulfate 325 mg p.o. b.i.d. 7. Lasix 40 mg 1 tab p.o. daily. 8. Imbruvica 420 mg p.o. daily. 9. Zestril 10 mg p.o. at bedtime. 10. Metoprolol succinate 50 mg 1 tab p.o. daily. 11. K-Dur 40 mEq 1 tab p.o. daily. 12. Pravachol 20 mg p.o. at bedtime. 13. Senokot-S 1 tab p.o. b.i.d. p.r.n. 14. Tramadol 50 mg p.o. q.6 hours p.r.n. pain. FOLLOWUP: The patient may follow up with her primary care provider, Dr. Jessica Lara within 7 days o f discharge. CONDITION ON DISCHARGE: Fair. ACTIVITY: Ad roshan. DIET: Heart healthy and ADA. CODE STATUS: Full. DISPOSITION: Home 04/25/2017. Total time preparing and coordinating discharge is 33 minutes.
--- NOTE | 2017-05-15 20:53 | EKG ---
Test Reason : Blood Pressure : / mmHG Vent. Rate : 112 BPM Atrial Rate : 241 BPM P-R Int : 000 ms QRS Dur : 084 ms QT Int : 218 ms P-R-T Axes : 000 -50 170 degrees QTc Int : 297 ms Atrial fibrillation with rapid ventricular response Left anterior fascicular block Abnormal ECG Confirmed by ARIELLA PLASCENCIA, UBALDO ([id number]), news editor BILLY MENDOZA ([id number]) on 05/15/2017 8:52:31 PM Referred By: Confirmed By:UBALDO KRISHNAN MD
== END 2017-04-25 18:02 | disposition home or self-care (01) | DRG 698 ==
LOC: ERS 19:33 → 2NO 21:18
PROVIDERS: ADMIT Internal Medicine; ATTEND Internal Medicine
PROC: 30233N1 Transfusion of Nonautologous Red Blood Cells into Peripheral Vein, Percutaneous Approach (ICD-10-PCS; principal; 2017-04-24)
DX: T83.511A Infection and inflammatory reaction due to indwelling urethral catheter, initial encounter (principal); A41.9 Sepsis, unspecified organism; J15.9 Unspecified bacterial pneumonia; I13.0 Hypertensive heart and chronic kidney disease with heart failure and stage 1 through stage 4 chronic kidney disease, or unspecified chronic kidney disease; E11.22 Type 2 diabetes mellitus with diabetic chronic kidney disease; I48.2 Chronic atrial fibrillation; I50.42 Chronic combined systolic (congestive) and diastolic (congestive) heart failure; E87.1 Hypo-osmolality and hyponatremia; D89.0 Polyclonal hypergammaglobulinemia; B96.4 Proteus (mirabilis) (morganii) as the cause of diseases classified elsewhere; E86.0 Dehydration; E78.5 Hyperlipidemia, unspecified; Z96.0 Presence of urogenital implants; Z79.01 Long term (current) use of anticoagulants; N18.3 Chronic kidney disease, stage 3 (moderate); Z86.73 Personal history of transient ischemic attack (TIA), and cerebral infarction without residual deficits; Z88.8 Allergy status to other drugs, medicaments and biological substances; Z79.84 Long term (current) use of oral hypoglycemic drugs; D64.89 Other specified anemias; Z92.21 Personal history of antineoplastic chemotherapy
CPT/HCPCS: 36415; 36416; 36430; 71010; 80048; 80053; 80076; 80202; 81003; 81015; 82728; 83605; 83615; 85025; 86850; 86900; 86901; 87040; 87077; 87086; 87186; 87324; 87449; 87804; 93005; 94760; 96365; A4216; G8978-GP-CN; G8979-GP-CN; G8980-GP-CN; J2543; J3370; J7050; J7626; P9016

== ENCOUNTER 2017-05-20 23:01 | Emergency (ER) | payer MEDICARE ==
[2017-05-21 00:46] LABS: #Eosinphils 0.1 thou/uL (0.0-0.7); #Lymphocytes 2.3 thou/uL (1.20-3.40); #Monocytes 0.4 thou/uL (0.11-0.59); #Neutrophils 2.4 thou/uL (1.40-6.50); %Basophils 0.6 % (0.0-1.0); %Eosinophils 1.9 % (0.0-10.0); %Lymphocytes 44.1 % (21.0-51.0); %Neutrophils 46.4 % (42.0-75.0); Hemoglobin 10.1 g/dL (12.0-16.0); Mean Corpuscular HGB CONC 33.4 g/dL (32.0-36.0); Mean Corpuscular Hemoglobin 30.3 pg (27.0-31.0); Mean Corpuscular Volume 90.7 fl (81.0-99.0); Mean Platelet Volume 8.8 fL (7.4-10.4); Platelet Count 187 thou/uL (130-400); RBC Distribution Width 14.5 % (11.5-14.5); Red Blood Cell (RBC) Count 3.34 mill/uL (4.20-5.40); White Blood Cell (WBC) Count 5.2 thou/uL (4.8-10.8)
[2017-05-21 00:49] LABS: INR-International Normal Ratio 1.4; Prothrombin Time 17.4 SEC (12.0-14.7)
[2017-05-21 00:50] LABS: PTT 40.3 SEC (22.9-36.1)
[2017-05-21 01:02] LABS: Anion Gap 14 mmol/L (10-20); BUN (Urea Nitrogen) 18 mg/dL (9.8-20.1); Calc. Creatinine Clearance 0 mL/min (70-130); Carbon Dioxide 26 mmol/L (23-31); Chloride 99 mmol/L (98-107); Estimated GFR-MDRD 87; Glucose 151 mg/dL (83-110); Potassium 3.6 mmol/L (3.5-5.1); Sodium 135 mmol/L (136-145)
[2017-05-21 01:23] LABS: Bilirubin Small (Negative); Blood, Urine Large (Negative); Glucose, Urine (Dipstick) Negative (Negative); Leukocyte Large (Negative); Nitrite Positive (Negative); Protein, Urine (Dipstick) 100 mg/dL (Neg-Trace); Urobilinogen 0.2 mg/dL (0.2-1.0); pH, Urine 8.5 (5.0-9.0)
[2017-05-21 01:26] LABS: Clarity Cloudy (Clear); Squamous Epithelial 0-3 HPF (0-3); WBC/HPF 21-50 HPF (0-3)
[2017-05-21 01:27] LABS: Bacteria/HPF 2+ HPF (None Seen); Transitional Epithelial 0-3 HPF (0-3)
== END 2017-05-21 02:20 | disposition home or self-care (01) ==
LOC: ERS 23:01
DX: N39.0 Urinary tract infection, site not specified (principal); I48.91 Unspecified atrial fibrillation; I11.0 Hypertensive heart disease with heart failure; M86.9 Osteomyelitis, unspecified; E11.9 Type 2 diabetes mellitus without complications; E78.5 Hyperlipidemia, unspecified; I50.9 Heart failure, unspecified; Z86.73 Personal history of transient ischemic attack (TIA), and cerebral infarction without residual deficits
CPT/HCPCS: 36415; 51702; 80048; 81003; 81015; 85025; 85610; 85730; 87077; 87086; 87186

== ENCOUNTER 2017-09-16 17:23 | Emergency (ER) | payer MEDICARE ==
[2017-09-16] MEDS ORDERED: cefTRIAXone\\ROCEPHIN 1 GM VIAL ONE (18:23)
[2017-09-16 19:01] LABS: Hemoglobin 10.7 g/dL (12.0-16.0); Mean Corpuscular HGB CONC 34.2 g/dL (32.0-36.0); Mean Corpuscular Hemoglobin 30.1 pg (27.0-31.0); Mean Corpuscular Volume 88.2 fl (81.0-99.0); Mean Platelet Volume 8.5 fL (7.4-10.4); Platelet Count 161 thou/uL (130-400); RBC Distribution Width 14.2 % (11.5-14.5); Red Blood Cell (RBC) Count 3.56 mill/uL (4.20-5.40); White Blood Cell (WBC) Count 8.3 thou/uL (4.8-10.8)
[2017-09-16 19:15] LABS: Bilirubin Negative (Negative); Blood, Urine Moderate (Negative); Clarity CLOUDY (Clear); Glucose, Urine (Dipstick) Negative (Negative); Leukocyte Large (Negative); Nitrite Positive (Negative); Protein, Urine (Dipstick) 30 mg/dL (Neg-Trace); Specific Gravity, Urine 1.007 (1.002-1.036); Urobilinogen 0.2 mg/dL (0.2-1.0); pH, Urine 8.5 (5.0-9.0)
[2017-09-16 19:18] LABS: Bacteria/HPF 1+ HPF (None Seen); Hyaline Casts/LPF 4-6 HYALINE CAST LPF (0-3 Hyaline); Pathc Cast-AUWi Flag 1.01 (0-2.49); Squamous Epithelial None Seen HPF (0-3)
[2017-09-16 19:22] LABS: Band 5 % (5-11); Lymphocytes 15 % (21-51); MDiff Complete? YES; Monocytes 1 % (0-10); Neutrophil 76 % (42-75); Ovalocytes SLIGHT = 2-5 cells (100X) (0-1/hpf); PLT Morphology Comment Appears Adequate; Polychromasia SLIGHT = 2-3 cells (100X) (0-2/hpf); Reactive Lymphocytes 2 % (0-10)
[2017-09-16 19:23] LABS: ALT (SGPT) 7 U/L (8-55); AST (SGOT) 14 U/L (5-34); Alkaline Phosphatase 67 U/L (40-150); Anion Gap 12 mmol/L (10-20); BUN (Urea Nitrogen) 17 mg/dL (9.8-20.1); Bilirubin, Total 0.9 mg/dL (0.2-1.2); Calc. Creatinine Clearance 0 mL/min (70-130); Calcium 8.9 mg/dL (7.8-10.44); Carbon Dioxide 25 mmol/L (23-31); Chloride 101 mmol/L (98-107); Estimated GFR-MDRD 86; Globulin 3.9 g/dL (2.4-3.5); Glucose 117 mg/dL (83-110); Potassium 3.8 mmol/L (3.5-5.1); Protein, Total 6.9 g/dL (6.0-8.3); Sodium 134 mmol/L (136-145)
== END 2017-09-16 20:10 | disposition home or self-care (01) ==
LOC: ERS 17:23
DX: N39.0 Urinary tract infection, site not specified (principal); I11.0 Hypertensive heart disease with heart failure; I50.9 Heart failure, unspecified; I48.91 Unspecified atrial fibrillation; M86.9 Osteomyelitis, unspecified; I69.30 Unspecified sequelae of cerebral infarction; E11.9 Type 2 diabetes mellitus without complications; E78.5 Hyperlipidemia, unspecified; Z79.82 Long term (current) use of aspirin; Z79.899 Other long term (current) drug therapy; Z79.84 Long term (current) use of oral hypoglycemic drugs
CPT/HCPCS: 36415; 80053; 81003; 81015; 85025; 87077; 87086; 87186; 93005; 96365; J0696

== ENCOUNTER 2018-06-19 09:53 | Emergency (ER) | payer MEDICARE ==
[2018-06-19 10:46] LABS: #Monocytes 0.6 thou/uL (0.11-0.59); #Neutrophils 6.7 thou/uL (1.40-6.50); %Basophils 0.1 % (0.0-1.0); %Eosinophils 0.4 % (0.0-10.0); %Lymphocytes 12.2 % (21.0-51.0); %Monocytes 7.3 % (0.0-10.0); Mean Corpuscular HGB CONC 33.4 g/dL (32.0-36.0); Mean Corpuscular Volume 92.8 fL (78.0-98.0); Mean Platelet Volume 9.5 fL (7.4-10.4); Platelet Count 141 thou/uL (130-400); RBC Distribution Width 12.6 % (11.5-14.5); Red Blood Cell (RBC) Count 3.54 mill/uL (4.20-5.40); White Blood Cell (WBC) Count 8.4 thou/uL (4.8-10.8)
[2018-06-19 11:08] LABS: ALT (SGPT) Less than 7 U/L (8-55); AST (SGOT) 6 U/L (5-34); Albumin 2.7 g/dL (3.4-4.8); Alkaline Phosphatase 53 U/L (40-150); Anion Gap 13 mmol/L (10-20); BUN (Urea Nitrogen) 16 mg/dL (9.8-20.1); Bilirubin, Total 0.7 mg/dL (0.2-1.2); Calc. Creatinine Clearance 0 mL/min (70-130); Calcium 7.4 mg/dL (7.8-10.44); Carbon Dioxide 20 mmol/L (23-31); Chloride 107 mmol/L (98-107); Estimated GFR-MDRD Greater than 90; Globulin 2.8 g/dL (2.4-3.5); Glucose 72 mg/dL (83-110); Lipase Less than 4 U/L (8-78); Potassium 3.3 mmol/L (3.5-5.1); Protein, Total 5.5 g/dL (6.0-8.3); Sodium 137 mmol/L (136-145)
[2018-06-19 11:54] LABS: Bilirubin Small (Negative); Blood, Urine Small (Negative); Clarity TURBID (Clear); Glucose, Urine (Dipstick) Negative (Negative); Leukocyte Large (Negative); Nitrite Negative (Negative); Protein, Urine (Dipstick) 100 mg/dL (Neg-Trace); Specific Gravity, Urine 1.017 (1.002-1.036); pH, Urine 8.5 (5.0-9.0)
[2018-06-19 11:57] LABS: Bacteria/HPF 4+ HPF (None Seen); Pathc Cast-AUWi Flag 2.03 (0-2.49); Squamous Epithelial None Seen HPF (0-3)
[2018-06-19 11:58] LABS: Hyaline Casts/LPF 0-3 HYALINE CAST LPF (0-3 Hyaline)
== END 2018-06-19 11:52 | disposition home or self-care (01) ==
LOC: ERS 09:53
DX: E87.6 Hypokalemia (principal); R19.7 Diarrhea, unspecified; N39.0 Urinary tract infection, site not specified; I48.91 Unspecified atrial fibrillation; E11.9 Type 2 diabetes mellitus without complications; E78.5 Hyperlipidemia, unspecified; I10 Essential (primary) hypertension; Z79.899 Other long term (current) drug therapy; Z86.73 Personal history of transient ischemic attack (TIA), and cerebral infarction without residual deficits; Z79.84 Long term (current) use of oral hypoglycemic drugs
CPT/HCPCS: 36415; 80053; 81003; 81015; 83690; 84484; 85025; 87077; 87086; 87186; 93005

== ENCOUNTER 2018-06-22 17:03 | Inpatient (IN) | payer MEDICARE ==
[~2018-06-22 17:03] MED LIST: ISOVUE-370 76%-LOCM 1 ML ONE
[2018-06-22 18:41] LABS: #Lymphocytes 0.8 thou/uL (1.20-3.40); #Monocytes 0.3 thou/uL (0.11-0.59); #Neutrophils 3.5 thou/uL (1.40-6.50); %Basophils 0.2 % (0.0-1.0); %Eosinophils 0.5 % (0.0-10.0); %Lymphocytes 16.7 % (21.0-51.0); %Monocytes 6.4 % (0.0-10.0); %Neutrophils 76.2 % (42.0-75.0); Hemoglobin 13.1 g/dL (12.0-16.0); Mean Corpuscular HGB CONC 32.5 g/dL (32.0-36.0); Mean Corpuscular Hemoglobin 29.7 pg (27.0-31.0); Mean Corpuscular Volume 91.4 fL (78.0-98.0); Mean Platelet Volume 10.2 fL (7.4-10.4); Platelet Count 131 thou/uL (130-400); RBC Distribution Width 12.7 % (11.5-14.5); Red Blood Cell (RBC) Count 4.39 mill/uL (4.20-5.40); White Blood Cell (WBC) Count 4.6 thou/uL (4.8-10.8)
[2018-06-22 19:00] LABS: ALT (SGPT) Less than 7 U/L (8-55); AST (SGOT) 12 U/L (5-34); Albumin 2.9 g/dL (3.4-4.8); Alkaline Phosphatase 59 U/L (40-150); Anion Gap 14 mmol/L (10-20); BUN (Urea Nitrogen) 12 mg/dL (9.8-20.1); Bilirubin, Total 0.6 mg/dL (0.2-1.2); Calc. Creatinine Clearance 0 mL/min (70-130); Carbon Dioxide 18 mmol/L (23-31); Chloride 102 mmol/L (98-107); Estimated GFR-MDRD Greater than 90; Globulin 3.3 g/dL (2.4-3.5); Glucose 91 mg/dL (83-110); Lipase Less than 4 U/L (8-78); Potassium 4.2 mmol/L (3.5-5.1); Protein, Total 6.2 g/dL (6.0-8.3); Sodium 130 mmol/L (136-145)
--- NOTE | 2018-06-22 19:22 | CT ---
CT OF THE ABDOMEN AND PELVIS WITH IV CONTRAST: 06/22/18 INDICATION: History of nausea, vomiting, and diarrhea. COMPARISON: Prior exam dated 11/04/16. FINDINGS: There are small bilateral pleural effusions with bibasilar atelectasis. The small cyst within the right hepatic lobe has decreased in size on image 26 of series 2, now measu ring approximately 1.6 cm where it previously measured 1.8 cm and 2 cm on a comparison study in 2013. The gallbladder is surgically absent. There are calcified granuloma involving the spleen. There are moderate calcifications involving the abdominal and pelvic vasculature. There are small cysts suspected within the right kidney. No marta hydronephrosis is evident. There is diffuse anasarca. There is wall thickening involving the distal descending colon, sigmoid colon, with pericolonic infla mmatory stranding. There is mild free fluid in the pelvis. Bilateral hip fractures are stable. Instrumentation involving both hips appear similar appearing. Hea led deformities involving the right obturator ring are stable. Stable mild wedge compression abnormal ities of L1 and L2. IMPRESSION: 1. Findings of colonic diverticulitis with mild ascites. Recommend appropriate colon screening a fter abatement of the patient's acute symptoms. 2. Fair catheter. 3. Small bilateral pleural effusions, anasarca, and ascites can be related to volume overload or CHF. Recommend correlation. 4. Decrease in size of the right hepatic lobe cyst. 5. Prior granulomatous disease. 6. Small right renal cyst. 7. Stable bilateral hip fractures with associated proximal femoral instrumentation. Stable compr ession abnormalities of L2 and L3. POS: [facility]
[2018-06-22] MEDS ORDERED: MEROPENEM 1 GM/50 ML 1 GM in Premix Bag 1 BAG IVPB SCH (20:45)
[2018-06-22] MEDS ORDERED: Diltiazem 125 MG/25 ML ONE (21:30)
[2018-06-22] MEDS ORDERED: Morphine 4 MG/ML VIAL SLOW IVP PRN (22:39)
[2018-06-22] MEDS ORDERED: Ondansetron ODT 4 MG TAB SL PRN (22:39)
[2018-06-22] MEDS ORDERED: Ondansetron PF 4 MG/2 ML Vial IVP PRN (22:39)
[2018-06-22 22:55] VITALS: BMI 21.6
[2018-06-23] MEDS ORDERED: Dextrose 5% in Water 1,000 ML IV PRN (00:01)
[2018-06-23] MEDS ORDERED: Dextrose 50% Abboject 50 ML SYRINGE SLOW IVP PRN (00:01)
[2018-06-23] MEDS ORDERED: HYDROcodone/Acetaminophen 5/325 mg Tablet PO PRN (00:01)
[2018-06-23] MEDS ORDERED: HumaLOG 300 UNITS/3 ML VIAL SC PRN (00:01)
[2018-06-23] MEDS ORDERED: Acetaminophen 325 MG TAB PO PRN (00:01)
--- NOTE | 2018-06-23 01:25 | HP ---
PRIMARY CARE PHYSICIAN: Dr. Jessica Lara. CHIEF COMPLAINT: Abdominal pain. HISTORY OF PRESENT ILLNESS: The patient is an 82-year-old female with past medical history of CVA with residual right-sided weakness, diabetes, atrial fibrillation , hypertension, and UTI. The patient has chronic Fair and inability to walk, who presents to the emergency department with concern for abdominal pain and vomiting since last Wednesday. The patient was seen in the ER and she was started on antibiotics. The patient reports it did not help and today, her symptoms got worse and that is why she came to the ER. The patient also reports abdominal pain. The patient reports that she has been compliant with her medications and the antibiotics that was given to her. The patient lives with her at home. The patient reports that she has chronic Fair since her stroke. The patient in the ER was given meropenem. The patient was noted to have elevated heart rate, but her heart rate now has been doing better. PAST MEDICAL HISTORY: History of CHF, atrial fibrillation, musculoskeletal disorder, osteomyelitis, CVA with right-side weakness, diabetes type 2, and multiple myeloma. PAST SURGICAL HISTORY: Hysterectomy, cholecystectomy, and right knee surgery today. SOCIAL HISTORY: Denies alcohol, smoking, or drug use. FAMILY HISTORY: The patient is not sure regarding her family history and was unable to tell much information. CURRENT HOME MEDICATIONS: Include; 1. Ascorbic acid. 2. Eliquis. 3. Vitamin B12. 4. Pravastatin. 5. Metoprolol. 6. Metformin. 7. Ferrous sulfate. 8. Zofran. 9. Potassium. 10. Lisinopril. 11. Furosemide. 12. Metronidazole. 13. Tramadol. REVIEW OF SYSTEMS: CONSTITUTIONAL: Negative for fever. EYES: Negative for changes to her vision. ENT: Negative for bleeding from her nose. CARDIOVASCULAR: Denies any chest pain. RESPIRATORY: Denies any shortness of breath. GI: Reports diarrhea, vomiting, and abdominal pain. GENITOURINARY: The patient has a Fair catheter. MUSCULOSKELETAL: The patient denies any falls. SKIN: Denies any rashes. NEUROLOGIC: Has right-sided deficit. PHYSICAL EXAMINATION: VITAL SIGNS: The patient's blood pressure is 153/91, heart rate 81, respiratory rate is 16, temperature 98.3, and O2 saturation 98% on room air. GENERAL: The patient is alert and does have some speech deficit. HEENT: Head is atraumatic. Ears and nose appears grossly normal. No bleeding noted. Mouth, no exudate. NECK: No lymphadenopathy noted. CARDIOVASCULAR: Irregularly irregular. No murmurs, rubs, or gallops. RESPIRATORY: Clear bilaterally. ABDOMEN: Discomfort to palpation of the abdomen and bowel sound decreased. Soft bilateral. EXTREMITIES: Bilateral lower extremity examination; the patient noted to have 1 + edema on her right lower extremity and trace edema on her left lower extremities. NEUROLOGIC: The patient has difficulty with speech, but able to understand her words. Cranial nerve grossly intact. The patient has right-sided weakness and her right upper extremity seems to be contracted. The patient does seem to be weak on right side. GENITOURINARY: The patient has Fair, draining clear but dark urine. LABORATORY DATA: BMP; sodium 130, potassium 4.2, chloride 102, carbon dioxide 18, BUN 12, and creatinine 0.52. Lactic acid 0.9. CBC; white blood cell count 4.6, hemoglobin 13.1, hematocrit 40.1, and platelet 131. UA, not available at this point. Blood cultures and urine culture pending at this point right now. She has a CT of the abdomen and pelvis significant for chronic diverticulitis with mild ascites. Fair catheter. Bilateral pleural effusion. Anasarca. Stable bilateral hip fracture associated with proximal femur instrumentation, compression abnormalities of L2 and L3. EKG, the patient noted to be in atrial fibrillation and not in RVR anymore. ASSESSMENT AND PLAN: 1. Diverticulitis. Acute diverticulitis with failed outpatient treatment. The patient was given meropenem in the ED. We will start the patient on Zosyn. Follow up blood culture. The patient reported to be tolerating clear liquids. We will continue the clear liquid diet and progress as tolerated. We will avoid fluid at this point given history of congestive heart failure. 2. Hyponatremia, likely from lasix. We will continue to trend in the morning. Avoiding IV fluids at this point due to history of congestive heart failure. 3. Atrial fibrillation. We will continue Eliquis and her home medications. 3a. History of congestive heart failure. Review of chart indicated the patient likely had diastolic heart failure. We will continue the patient's home Lasix at this point. The patient does not appear to be short of breath or appears to be in exacerbation at this point. We will order BNP given the pleural effusion noted on the CT abdomen. 4. Diabetes. We will hold metformin and we will continue with sliding scale insulin. 5. Cerebrovascular accident with residual right-sided weakness. PT/OT for precautions. Continue home medications. 6. Hypertension. Continue home medication. 7. Deep venous thrombosis prophylaxis. The patient is already on Eliquis. The patient's medical power of floor inspector reports and then her sister and daughter. Code status, the patient is unsure what her code status is. We will keep the patient as a full code right now. I advised the staff to discuss with the patient's family in the morning and update the code status as necessary. Job ID: [id number] MTDD
[2018-06-23 05:19] LABS: #Lymphocytes 0.8 thou/uL (1.20-3.40); #Monocytes 0.4 thou/uL (0.11-0.59); #Neutrophils 2.8 thou/uL (1.40-6.50); %Basophils 0.7 % (0.0-1.0); %Eosinophils 0.2 % (0.0-10.0); %Lymphocytes 19.9 % (21.0-51.0); %Monocytes 9.2 % (0.0-10.0); %Neutrophils 70.1 % (42.0-75.0); Hemoglobin 12.2 g/dL (12.0-16.0); Mean Corpuscular HGB CONC 32.8 g/dL (32.0-36.0); Mean Corpuscular Hemoglobin 30.3 pg (27.0-31.0); Mean Corpuscular Volume 92.4 fL (78.0-98.0); Mean Platelet Volume 9.8 fL (7.4-10.4); Platelet Count 123 thou/uL (130-400); RBC Distribution Width 12.6 % (11.5-14.5); Red Blood Cell (RBC) Count 4.02 mill/uL (4.20-5.40); White Blood Cell (WBC) Count 3.9 thou/uL (4.8-10.8)
[2018-06-23] MEDS: Piperacillin/Tazobactam 3.375 GM in Sodium Chloride 0.9% 100 ML IVPB SCH ×3 (05:31→17:20)
[2018-06-23 05:36] LABS: Anion Gap 12 mmol/L (10-20); BUN (Urea Nitrogen) 10 mg/dL (9.8-20.1); Calc. Creatinine Clearance 71 mL/min (70-130); Calcium 7.6 mg/dL (7.8-10.44); Carbon Dioxide 18 mmol/L (23-31); Chloride 106 mmol/L (98-107); Estimated GFR-MDRD Greater than 90; Glucose 94 mg/dL (83-110); Potassium 3.4 mmol/L (3.5-5.1); Sodium 133 mmol/L (136-145)
[2018-06-23] MEDS: Furosemide 40 MG TAB PO SCH (09:13)
[2018-06-23] MEDS: Apixaban 5 MG TAB PO SCH ×2 (09:14→21:04)
--- NOTE | 2018-06-23 13:29 | PDOC.PN ---
- Subjective Encounter Start Date: 06/23/18 Encounter Start Time: 09:45 Feeling better today. No nausea. Was able to eat some broth. Abdominal pain has improved. - Objective Resuscitation Status - Order Detail: 06/23/18 00:01 Resuscitation Status Routine Resuscitation Status: FULL: Full Resuscitation Discussed with: Pt Additional comments: Pt not sure. Will have her as full code for now. Please discuss with family in the AM Vital Signs & Weight: Vital Signs (12 hours) Temp Pulse Resp BP Pulse Ox 06/23/18 12:10 99.0 F 104 H 14 164/81 H 99 06/23/18 07:45 98.3 F 100 14 157/73 H 100 06/23/18 03:00 98 F 91 16 148/71 H 98 Weight Admit Weight 118 lb 3 oz Weight 118 lb 3 oz Result Diagrams: 06/23/18 04:39 06/23/18 04:39 Additional Labs: Accuchecks 06/23/18 06/23/18 06/22/18 10:51 05:26 23:34 POC Glucose 109 96 104 Phys Exam - Physical Examination Constitutional: NAD Some wasting of the temporalis muscles. Awake and alert. Respiratory: no wheezing, no rales, no rhonchi, clear to auscultation bilateral Cardiovascular: RRR, no significant murmur Hyperactve bowel sounds. Gastrointestinal: soft, non-tender Musculoskeletal: no edema Psychiatric: normal affect, A&O x 3 Skin: no rash Dx/Plan (1) Diverticulitis Code(s): K57.92 - DVTRCLI OF INTEST, PART UNSP, W/O PERF OR ABSCESS W/O BLEED Status: Acute (2) Hyponatremia Code(s): E87.1 - HYPO-OSMOLALITY AND HYPONATREMIA Status: Acute Comment: Stable (3) H/O: CVA (cerebrovascular accident) Code(s): Z86.73 - PRSNL HX OF TIA (TIA), AND CEREB INFRC W/O RESID DEFICITS Status: Chronic (4) Type II diabetes mellitus Status: Chronic Qualifiers: (5) Hyperlipidemia Code(s): E78.5 - HYPERLIPIDEMIA, UNSPECIFIED Status: Chronic (6) HTN (hypertension) Code(s): I10 - ESSENTIAL (PRIMARY) HYPERTENSION Status: Chronic (7) Afib Code(s): I48.91 - UNSPECIFIED ATRIAL FIBRILLATION Status: Chronic Qualifiers: Comment: rate controlled.On chronic anticoagulation (8) Nausea and vomiting Code(s): R11.2 - NAUSEA WITH VOMITING, UNSPECIFIED Status: Acute - Plan * Diverticulitis that failed outpatient treatment. Improved symptoms today. Continue IV abx and IVF. Taking some PO's now. * N/V improved. * Discussed the Fair catheter. Has had it for five years. Patient lives at home and is getting good care at home. She has difficulty getting to appointments. Will have CM talk with them. * Resume home med as tolerated.
[2018-06-23] MEDS ORDERED: Metoprolol Tartrate 25 MG TAB PO SCH (19:15)
[2018-06-23] MEDS ORDERED: Pravastatin Sodium 20 MG TAB PO SCH (21:00)
[2018-06-23] MEDS ORDERED: Lisinopril 20 MG TAB PO SCH (21:00)
[2018-06-24] MEDS: Piperacillin/Tazobactam 3.375 GM in Sodium Chloride 0.9% 100 ML IVPB SCH ×4 (00:25→17:31)
[2018-06-24] MEDS ORDERED: Ferrous Sulfate 325 MG TAB PO SCH (09:00)
[2018-06-24] MEDS ORDERED: Potassium Chloride 10 MEQ TAB PO SCH (09:00)
[2018-06-24] MEDS ORDERED: Potassium Chloride 20 MEQ TAB PO SCH (09:00)
[2018-06-24] MEDS ORDERED: Docusate 100 MG CAP PO SCH (09:00)
[2018-06-24] MEDS ORDERED: Ascorbic Acid 500 mg Chewable Tablet PO SCH (09:00)
[2018-06-24] MEDS ORDERED: IBRUTINIB PO SCH ×2 (09:00)
[2018-06-24] MEDS ORDERED: Non-Formulary Item 1 EACH (Ferrous Sulfate [Ferrous Sulfate] 325 MG) PO SCH (09:00)
[2018-06-24] MEDS: metFORMIN 500 MG TAB PO SCH ×2 (09:03→16:38)
[2018-06-24] MEDS: Apixaban 5 MG TAB PO SCH (09:04)
[2018-06-24] MEDS: Furosemide 40 MG TAB PO SCH (09:04)
[2018-06-24 09:27] LABS: Platelet Count 128 thou/uL (130-400)
[2018-06-24 20:13] VITALS: BP 171/80; TEMP 98.1
--- NOTE | 2018-06-25 13:13 | EKG ---
Test Reason : AFIB Blood Pressure : / mmHG Vent. Rate : 123 BPM Atrial Rate : 113 BPM P-R Int : 000 ms QRS Dur : 076 ms QT Int : 298 ms P-R-T Axes : 000 -54 -11 degrees QTc Int : 426 ms Atrial fibrillation with rapid ventricular response Left axis deviation Nonspecific ST and T wave abnormality Abnormal ECG Confirmed by LATISHA DUTTA DO ([id number]), newspaper copy editor BILLY MENDOZA ([id number]) on 06/25/2018 1:12:58 PM Referred By: LUZMARIA Confirmed By:LATISHA DUTTA DO
== END 2018-06-24 19:31 | disposition home or self-care (01) | DRG 392 ==
LOC: ERS 17:03 → 2NO 20:28
PROVIDERS: ADMIT Emergency Medicine; ATTEND Emergency Medicine
DX: K57.92 Diverticulitis of intestine, part unspecified, without perforation or abscess without bleeding (principal); E87.1 Hypo-osmolality and hyponatremia; I69.351 Hemiplegia and hemiparesis following cerebral infarction affecting right dominant side; I50.32 Chronic diastolic (congestive) heart failure; E11.9 Type 2 diabetes mellitus without complications; E78.5 Hyperlipidemia, unspecified; I48.91 Unspecified atrial fibrillation; Z85.79 Personal history of other malignant neoplasms of lymphoid, hematopoietic and related tissues; I11.0 Hypertensive heart disease with heart failure
CPT/HCPCS: 36415; 36416; 74177; 80048; 80053; 81003; 81015; 82565; 83605; 83690; 83880; 84484; 85014; 85018; 85025; 85049; 87040; 87077; 87086; 87186; 93005; 96361; 96365; 96375; J2185; J2543; J7050; Q9966

== ENCOUNTER 2018-09-05 10:33 | Inpatient (IN) | payer MEDICARE ==
[2018-09-05] MEDS ORDERED: Ondansetron PF 4 MG/2 ML Vial ONE (11:13)
[2018-09-05] MEDS ORDERED: Morphine 4 MG/ML VIAL ONE (11:13)
--- NOTE | 2018-09-05 11:19 | RAD ---
Portable frontal chest radiograph: 09/05/2018 COMPARISON: 04/21/2017 HISTORY: Cough FINDINGS: There is a new focal area of airspace disease in the right lung base. There is atherosclero tic calcification of the thoracic aorta. There is no pneumothorax. Left lung appears grossly unremarkable. There is degenerative change involving bilateral shoulders with superior elevation of bilateral humer al head suggesting rotator cuff tears. IMPRESSION: New focal area of airspace disease in the inferior right lung base suggests infectious pn eumonitis or aspiration. Follow-up imaging following treatment to document resolution is advised.
[2018-09-05 11:25] LABS: Hemoglobin 12.2 g/dL (12.0-16.0); Mean Corpuscular HGB CONC 34.3 g/dL (32.0-36.0); Mean Corpuscular Hemoglobin 31.2 pg (27.0-31.0); Mean Corpuscular Volume 90.8 fL (78.0-98.0); Platelet Count 159 thou/uL (130-400); RBC Distribution Width 13.3 % (11.5-14.5); Red Blood Cell (RBC) Count 3.93 mill/uL (4.20-5.40); White Blood Cell (WBC) Count 14.2 thou/uL (4.8-10.8)
[2018-09-05] MEDS ORDERED: cefTRIAXone\\ROCEPHIN 2 GM VIAL ONE (11:40)
[2018-09-05 11:46] LABS: ALT (SGPT) Less than 7 U/L (8-55); AST (SGOT) 10 U/L (5-34); Albumin 3.4 g/dL (3.4-4.8); Alkaline Phosphatase 61 U/L (40-150); Anion Gap 15 mmol/L (10-20); BUN (Urea Nitrogen) 20 mg/dL (9.8-20.1); Bilirubin, Total 1.1 mg/dL (0.2-1.2); Calc. Creatinine Clearance 0 mL/min (70-130); Calcium 9.2 mg/dL (7.8-10.44); Carbon Dioxide 23 mmol/L (23-31); Chloride 100 mmol/L (98-107); Estimated GFR-MDRD Greater than 90; Globulin 3.6 g/dL (2.4-3.5); Glucose 123 mg/dL (83-110); Lipase Less than 4 U/L (8-78); Potassium 3.4 mmol/L (3.5-5.1); Sodium 135 mmol/L (136-145)
[2018-09-05 11:49] LABS: Band 10 % (5-11); Lymphocytes 3 % (21-51); MDiff Complete? YES; Monocytes 4 % (0-10); Neutrophil 83 % (42-75); Platelet Morphology Comment Appears Adequate
[2018-09-05 12:02] LABS: Clarity Cloudy (Clear); Specific Gravity, Urine 1.015 (1.005-1.030)
[2018-09-05 12:03] LABS: pH, Urine 8.5 (5.0-9.0)
[2018-09-05 12:04] LABS: Bilirubin Small (Negative); Blood, Urine Moderate (Negative); Glucose, Urine (Dipstick) Negative (Negative); Leukocyte Large (Negative); Nitrite Positive (Negative); Protein, Urine (Dipstick) > or equal to 300 mg/dL (Neg-Trace)
[2018-09-05 12:14] LABS: Bacteria/HPF 3+ HPF (None Seen); Crystals/HPF 1+ AMORPH PHOS HPF (Negative); Hyaline Casts/LPF NONE SEEN LPF (0-3 Hyaline); RBC/HPF 21-50 HPF (0-3); Squamous Epithelial 0-3 HPF (0-3)
[2018-09-05] MEDS ORDERED: Azithromycin 500 MG VIAL ONE (12:39)
--- NOTE | 2018-09-05 13:11 | CT ---
CT abdomen and pelvis with IV and oral contrast HISTORY: Abdominal pain. COMPARISON: 06/22/2018. FINDINGS: Significant fluffy infiltrate at each posterior lung base. Gallbladder surgically absent. O macario low density mass within the medial segment left liver lobe is unchanged in appearance. Prominent calcification throughout the arterial structures. Right renal cyst and bilateral renal calc ifications are similar in appearance to the previous exam. Prominent degenerative changes lumbar spine. Appendix is not inflamed. No bowel dilatation is apparent. Old appearing right hip fracture and pelvic fractures are similar in appearance to the previous study . Urinary bladder is decompressed by a Fair catheter. IMPRESSION: Bibasilar lung parenchymal infiltrates. Possible inflammation. Clinical correlation regar ding other signs and symptoms of bibasilar meningitis is required. No acute cause of right lower quadrant pain is evident. Chronic-type findings are stable.
--- NOTE | 2018-09-05 15:49 | PDOC.FPRHP ---
- History of Present Illness Chief Complaint: Abd pain x 1 day History of Present Illness: 82F presents for 1 day of abd pain. She has history of diverticulitis 3 month ago, indwelling urinary catheter changed 1 day prior, a fib, DM2, and cholecystectomy. She localize pain to RUQ. It is associated with nausea, productive cough. She was in usual state of health before this happened. Symptom are worse then when it started this morning. Is not relieved or exacerbated by anything. ED Course: In ER, has received ceftriaxone 2 g, azithromycin 500 mg, morphine 4 mg, NS 500 ml, and zofran 8mg - Allergies/Adverse Reactions Allergies Allergy/AdvReac Type Severity Reaction Status Date / Time fentanyl Allergy Verified 09/05/18 17:08 Latex, Natural Rubber AdvReac Mild Verified 06/22/18 23:00 - Home Medications Medication Instructions Recorded Confirmed Type Ascorbic Acid [Vitamin C] 500 mg PO DAILY 04/03/16 06/23/18 History Cyanocobalamin (Vitamin B-12) 1,000 mcg PO DAILY 04/03/16 06/23/18 History [Vitamin B-12] Ferrous Sulfate 325 mg PO DAILY 04/03/16 06/23/18 History Furosemide [Lasix] 20 mg PO DAILY 04/03/16 06/23/18 History Ibrutinib [Imbruvica] 3 cap PO DAILY 04/03/16 06/23/18 History Metoprolol Succinate 50 mg PO DAILY 04/03/16 06/23/18 History Potassium Chloride [K-Dur] 10 meq PO DAILY 04/03/16 06/23/18 History Pravastatin Sodium 20 mg PO HS 04/03/16 06/23/18 History Docusate [Colace] 100 mg PO BID #60 cap 09/07/16 06/23/18 Rx traMADol HCl [Ultram] 50 mg PO TID PRN 11/04/16 06/23/18 History Apixaban [Eliquis] 2.5 mg PO BID 06/23/18 06/23/18 History Calcium/D3/Mag Ox/Iron Pellet Tester/Mono/Zn 1 each PO DAILY 06/23/18 06/23/18 History [Caltrate+D3 Plus Mineral Minis] Lisinopril [Zestril] 20 mg PO HS 06/23/18 06/23/18 History Metronidazole [metroNIDAZOLE] 500 mg PO TID 06/23/18 06/23/18 History Ondansetron [Zofran ODT] 4 mg PO Q6HR PRN 06/23/18 06/23/18 History Saccharomyces boulardii [Florastor] 250 mg PO DAILY 06/23/18 06/23/18 History Ciprofloxacin [Cipro] 500 mg PO BID #10 tab 06/24/18 Rx metFORMIN [Glucophage] 250 mg PO BID-WM #10 06/24/18 06/23/18 Rx - History PMHx: A fib, CVA with rt side deficit, DM2, HLD, HTN, hx multiple myeloma treated with chemo in 2017, sCHF with EF 40-45% in 2017 PSHx: ORIF of bilat femur in 2016, Cholecystectomy, rt knee surgery FHx:HTN Social: Deny alcohol, drug, tobacco use - Review of Systems General: denies: fever/chills, weight/appetite/sleep changes Eyes: denies: vision changes ENT: denies: nasal congestion, rhinorrhea Respiratory: reports: cough (Productive brown sputum), shortness of breath. denies: congestion Cardiovascular: denies: chest pain, palpitation, edema Gastrointestinal: denies: nausea, vomiting, diarrhea, constipation Genitourinary: denies: dysuria Skin: denies: rashes, itching Musculoskeletal: denies: swelling Neurological: reports: weakness. denies: syncope - Vital signs BP: [118/56] HR: [90] RR: []17 Tmax: [98] Pox: [100]% on [2L] Wt: [52 kg] - Physical Exam Constitutional: NAD, awake, alert and oriented -Constitutional: Thin HEENT: normocephalic and atraumatic, conjunctiva clear, no scleral icterus, grossly normal vision, grossly normal hearing Neck: supple, trachea midline Heart: RRR, normal S1/S2, no murmurs/rubs/gallops, other (2+ edema in LE) Lungs: no respiratory distress, good air movement, no rales/rhonchi -Lungs: Decreased lung sound in RLL Abdomen: soft, non-tender, bowel sounds present, no masses/distention Musculoskeletal: normal tone Neurological: normal sensation -Neurological: Oriented to place, time and self Skin: no rash/lesions, good turgor, capillary refill <2 seconds Heme/Lymphatic: no unusual bruising or bleeding, no purpura, no petechia Psychiatric: normal mood and affect, good judgment and insight, intact recent and remote memory FMR H&P: Results - Labs Result Diagrams: 09/05/18 11:02 09/05/18 11:02 Lab results: WBC 14.2 thou/uL (4.8-10.8) H 09/05/18 11:02 Hgb 12.2 g/dL (12.0-16.0) 09/05/18 11:02 Hct 35.6 % (36.0-47.0) L 09/05/18 11:02 MCV 90.8 fL (78.0-98.0) 09/05/18 11:02 Plt Count 159 thou/uL (130-400) 09/05/18 11:02 Band Neuts % (Manual) 10 % (5-11) 09/05/18 11:02 Sodium 135 mmol/L (136-145) L 09/05/18 11:02 Potassium 3.4 mmol/L (3.5-5.1) L 09/05/18 11:02 Chloride 100 mmol/L (98-107) 09/05/18 11:02 Carbon Dioxide 23 mmol/L (23-31) 09/05/18 11:02 BUN 20 mg/dL (9.8-20.1) 09/05/18 11:02 Creatinine 0.58 mg/dL (0.6-1.1) L 09/05/18 11:02 Glucose 123 mg/dL (83-110) H 09/05/18 11:02 Lactic Acid 1.0 mmol/L (0.5-2.2) 09/05/18 11:02 Calcium 9.2 mg/dL (7.8-10.44) 09/05/18 11:02 Total Bilirubin 1.1 mg/dL (0.2-1.2) 09/05/18 11:02 AST 10 U/L (5-34) 09/05/18 11:02 ALT Less than 7 U/L (8-55) L 09/05/18 11:02 Alkaline Phosphatase 61 U/L (40-150) 09/05/18 11:02 Serum Total Protein 7.0 g/dL (6.0-8.3) 09/05/18 11:02 Albumin 3.4 g/dL (3.4-4.8) 09/05/18 11:02 Lipase Less than 4 U/L (8-78) L 09/05/18 11:02 Urine Ketones 80 mg/dL (Negative) H 09/05/18 10:46 Urine Blood Moderate (Negative) H 09/05/18 10:46 Urine Nitrite Positive (Negative) H 09/05/18 10:46 Ur Leukocyte Esterase Large (Negative) H 09/05/18 10:46 Urine RBC 21-50 HPF (0-3) H 09/05/18 10:46 Urine WBC 11-20 HPF (0-3) H 09/05/18 10:46 Ur Squamous Epith Cells 0-3 HPF (0-3) 09/05/18 10:46 Urine Bacteria 3+ HPF (None Seen) H 09/05/18 10:46 - EKG Interpretation EKG: afib w rvr - Radiology Interpretation Other Status: image reviewed by me, report reviewed by me (CXR: Possible RLL pneumonia CT CT: Abd/Pelvis - Bilateral pleural infiltrate) FMR H&P: A/P - Problem List (1) Acute respiratory failure with hypoxia Current Visit: Yes Status: Acute Code(s): J96.01 - ACUTE RESPIRATORY FAILURE WITH HYPOXIA Assessment and Plan: Has pneumonia, came in requiring O2 by nasal cannula to maintain O2 sat Plan to treat pneumonia, O2 support as needed. (2) Sepsis due to pneumonia Current Visit: Yes Status: Acute Code(s): J18.9 - PNEUMONIA, UNSPECIFIED ORGANISM; A41.9 - SEPSIS, UNSPECIFIED ORGANISM Assessment and Plan: Meets sepsis criteria by vital, wbc and likely pneumonia source Has received fluid. Will need to balance with her hx of CHF with reduced EF. Has received abx, will continue. (3) Community acquired bacterial pneumonia Current Visit: Yes Status: Acute Code(s): J15.9 - UNSPECIFIED BACTERIAL PNEUMONIA Assessment and Plan: Patient from home presents with pneumonia, as seen by cxr, elevated wbc, and history of cough, sob and RUQ abde discomfort Plan, has been treated with levaquin in past 3 month for diverticulitis. Will plan for treatment with ceftriaxone and azithromycin. (4) Afib Current Visit: No Status: Chronic Code(s): I48.91 - UNSPECIFIED ATRIAL FIBRILLATION Qualifiers: Comment: rate controlled.On chronic anticoagulation Assessment and Plan: Rate controlled and on chronic anticoagulation Will continue with elliquis and metoprolol. (5) HTN (hypertension) Current Visit: No Status: Chronic Code(s): I10 - ESSENTIAL (PRIMARY) HYPERTENSION Assessment and Plan: HTN is currently controlled Plan is continue with home lisinopril. (6) Hyperlipidemia Current Visit: No Status: Chronic Code(s): E78.5 - HYPERLIPIDEMIA, UNSPECIFIED Assessment and Plan: Chronic issue. Plan to continue with home pravastatin. (7) Type II diabetes mellitus Current Visit: No Status: Chronic Qualifiers: Assessment and Plan: Chronic issue. Random glucose is at acceptable level at this time Plan to hold metformin 2/[address] patient on sliding scale insulin. (8) Systolic congestive heart failure Current Visit: Yes Status: Acute Code(s): I50.20 - UNSPECIFIED SYSTOLIC ( CONGESTIVE) HEART FAILURE Assessment and Plan: Echocardiogram in 2017 shows EF of 40-45% At this time, does not appear overloaded on exam or labwork. Plan to monitor, limit free fluid intake. (9) Asymptomatic bacteriuria Current Visit: Yes Status: Acute Code(s): R82.71 - BACTERIURIA Assessment and Plan: UA of patient with indwelling alvarado catheter shows WBC, bacteria, nitrite and LE. May represent infection, but more likely colonization. Will treat pneumonia and ceftriaxone should cover UTI as well. Ucx pending. - Plan Telemetry, inpatient FMR H&P: Upper Level - Pertinent history NOTED DONE ON BEHALF OF SOUND PHYSICIAN. [facility]. - Plan Date/Time: 09/05/18 [id number] I have evaluated this patient and agree with findings/plan as outlined by newsroom intern resident Harish Chambers. Reviewed all pertintent Hx, PE, Labs, Rads and EKG's. CXR with RLL PNA on Rocephin/Zithromax continue abx therapy and monitor blood cx results. Apparent UTI as well with chronic indwelling Alvarado catheter. Await final Ucx results. Discussed code status and goals of care with patient and family. Pt wishing to be full code status currently. Please see Harish Chambers's documentation for full details.
[2018-09-05] MEDS ORDERED: Calcium Carbonate 500 MG ChewTAB PO PRN (16:54)
[2018-09-05] MEDS ORDERED: Ondansetron ODT 4 MG TAB PO PRN (16:54)
[2018-09-05 17:02] VITALS: BMI 17.6
[2018-09-05] MEDS ORDERED: Iopamidol 370 76% 50 ML VIAL FS ONE (17:07)
[2018-09-05] MEDS ORDERED: ISOVUE-370 76%-LOCM 1 ML ONE (17:07)
[2018-09-05] MEDS ORDERED: Dextrose 5% in Water 1,000 ML IV PRN (17:22)
[2018-09-05] MEDS ORDERED: HumaLOG 300 UNITS/3 ML VIAL SC PRN (17:22)
[2018-09-05] MEDS ORDERED: Dextrose 50% Abboject 50 ML SYRINGE SLOW IVP PRN (17:22)
[2018-09-05] MEDS ORDERED: Potassium Chloride 40 MEQ in Sodium Chloride 0.9% 500 ML IVPB ONE (17:45)
[2018-09-05] MEDS ORDERED: Potassium Chloride 20 MEQ TAB PO SCH (18:15)
--- NOTE | 2018-09-05 18:40 | PDOC.EVN ---
Event Note - Event Note Event Note: ACP Note: Met with pt and daughter regarding goals of care and code status. Pt verbalizes wish for full code status changing her mind from previous DNAR status. Daughter confirms the wishes and understands the consequences of aggressive resuscitation. Discussed current treatment plan for IV abx for PNA and general supportive measures. Pt remains non-ambulatory for several years and will continue with services upon discharge. Pt and daughter verbalize understanding with tx plan and goals of care. Total time: 18min
[2018-09-05] MEDS: Apixaban 2.5 MG TAB PO SCH (20:17)
[2018-09-06] MEDS ORDERED: Acetaminophen 325 MG TAB PO SCH (06:00)
[2018-09-06 06:36] LABS: #Lymphocytes 1.5 thou/uL (1.20-3.40); #Monocytes 0.4 thou/uL (0.11-0.59); #Neutrophils 8.9 thou/uL (1.40-6.50); %Basophils 0.3 % (0.0-1.0); %Eosinophils 0.2 % (0.0-10.0); %Lymphocytes 13.7 % (21.0-51.0); %Neutrophils 81.8 % (42.0-75.0); Hemoglobin 10.9 g/dL (12.0-16.0); Mean Corpuscular HGB CONC 34.2 g/dL (32.0-36.0); Mean Corpuscular Hemoglobin 31.9 pg (27.0-31.0); Mean Corpuscular Volume 93.3 fL (78.0-98.0); Mean Platelet Volume 10.4 fL (7.4-10.4); Platelet Count 142 thou/uL (130-400); RBC Distribution Width 13.4 % (11.5-14.5); Red Blood Cell (RBC) Count 3.42 mill/uL (4.20-5.40); White Blood Cell (WBC) Count 10.9 thou/uL (4.8-10.8)
[2018-09-06 06:57] LABS: ALT (SGPT) 7 U/L (8-55); AST (SGOT) 12 U/L (5-34); Albumin 2.9 g/dL (3.4-4.8); Alkaline Phosphatase 57 U/L (40-150); Anion Gap 12 mmol/L (10-20); BUN (Urea Nitrogen) 23 mg/dL (9.8-20.1); Bilirubin, Total 0.7 mg/dL (0.2-1.2); Calc. Creatinine Clearance 51 mL/min (70-130); Calcium 8.6 mg/dL (7.8-10.44); Carbon Dioxide 23 mmol/L (23-31); Chloride 103 mmol/L (98-107); Estimated GFR-MDRD 86; Globulin 3.2 g/dL (2.4-3.5); Glucose 93 mg/dL (83-110); Potassium 4.6 mmol/L (3.5-5.1); Protein, Total 6.1 g/dL (6.0-8.3); Sodium 133 mmol/L (136-145)
[2018-09-06] MEDS: Apixaban 2.5 MG TAB PO SCH ×2 (08:23→20:14)
[2018-09-06] MEDS: Ascorbic Acid 500 mg Chewable Tablet PO SCH (08:23)
[2018-09-06] MEDS ORDERED: Prevnar 13-Val Conj/PF 0.5 ML SYRINGE IM ONE (09:00)
[2018-09-06] MEDS ORDERED: cefTRIAXone\\ROCEPHIN 1 GM in Sodium Chloride 0.9% 100 ML IVPB SCH (12:00)
[2018-09-06] MEDS ORDERED: Azithromycin 250 MG in Sodium Chloride 0.9% 250 ML 250 ML IVPB SCH (13:00)
[2018-09-06] MEDS: Piperacillin/Tazobactam 4.5 GM in Sodium Chloride 0.9% 100 ML IVPB SCH ×2 (14:53→20:13)
[2018-09-06] MEDS: Vancomycin HCl 750 MG in Sodium Chloride 0.9% 250 ML 250 ML IVPB SCH (17:22)
[2018-09-06] MEDS ORDERED: Vancomycin HCl 1 GM in Premix Bag 1 BAG IVPB SCH (21:00)
[2018-09-06] MEDS: Acetaminophen 325 MG TAB PO PRN (21:18)
--- NOTE | 2018-09-06 22:21 | PDOC.PN ---
- Subjective Encounter Start Date: 09/06/18 Encounter Start Time: 12:30 Subjective: pt up in bed no complains - Objective Resuscitation Status - Order Detail: 09/05/18 16:23 Resuscitation Status Routine Co-Sign Provider: Resuscitation Status: FULL: Full Resuscitation Discussed with: Patient Vital Signs & Weight: Vital Signs (12 hours) Temp Pulse Resp BP Pulse Ox 09/06/18 20:00 98.9 F 102 H 18 142/61 H 97 09/06/18 16:00 99.0 F 103 H 18 145/71 H 100 09/06/18 11:43 97.9 F 100 18 119/71 100 Weight Admit Weight 109 lb 5 oz Weight 109 lb 5 oz I&O: 09/05/18 09/06/18 09/07/18 06:59 06:59 06:59 Intake Total 400 880 Output Total 300 175 Balance 100 705 Result Diagrams: 09/06/18 06:14 09/06/18 06:14 Additional Labs: Accuchecks 09/06/18 09/06/18 09/06/18 20:16 16:45 11:48 POC Glucose 136 H 132 H 128 H 09/06/18 05:13 POC Glucose 102 Phys Exam - Physical Examination Neck: no nodes, no JVD, supple, full ROM Respiratory: no wheezing, no rales, no rhonchi, wheezing present, clear to auscultation bilateral Cardiovascular: RRR, no significant murmur, no rub, gallop, irregular Gastrointestinal: soft, non-tender, no distention, positive bowel sounds right side weakness Dx/Plan (1) Acute respiratory failure with hypoxia Code(s): J96.01 - ACUTE RESPIRATORY FAILURE WITH HYPOXIA Status: Acute (2) Aspiration pneumonia Code(s): J69.0 - PNEUMONITIS DUE TO INHALATION OF FOOD AND VOMIT Status: Acute (3) UTI (urinary tract infection) due to urinary indwelling catheter Code(s): T83.511A - I/I REACT D/T INDWELLING URETHRAL CATHETER, INIT; N39.0 - URINARY TRACT INFECTION, SITE NOT SPECIFIED Status: Acute (4) H/O: CVA (cerebrovascular accident) Code(s): Z86.73 - PRSNL HX OF TIA (TIA), AND CEREB INFRC W/O RESID DEFICITS Status: Chronic (5) [place]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 Review of Systems - Review of Systems Respiratory: negative: Cough, Dry, Shortness of Breath, Hemoptysis, SOB with Excertion, Pleuritic Pain, Sputum, Wheezing Cardiovascular: negative: chest pain, palpitations, orthopnea, paroxysmal nocturnal dyspnea, edema, light headedness, other Gastrointestinal: negative: Nausea, Vomiting, Abdominal Pain, Diarrhea, Constipation, Melena, Hematochezia, Other - Medications/Allergies Allergies/Adverse Reactions: Allergies Allergy/AdvReac Type Severity Reaction Status Date / Time fentanyl Allergy Verified 09/05/18 17:08 Latex, Natural Rubber AdvReac Mild Verified 06/22/18 23:00 Medications: Current Medications Acetaminophen (Tylenol) 650 mg PO Q6H PRN PRN Reason: Pain Last Admin: 09/06/18 21:18 Dose: 650 mg Apixaban (Eliquis) 2.5 mg PO BID [facility] Last Admin: 09/06/18 20:14 Dose: 2.5 mg Ascorbic Acid (Vitamin C) 500 mg PO DAILY [facility] Last Admin: 09/06/18 08:23 Dose: 500 mg Calcium Carbonate (Tums) 1,000 mg PO Q4H PRN PRN Reason: Heartburn or Indigestion Dextrose/Water (Dextrose 50%) 25 gm SLOW IVP PRN PRN PRN Reason: Hypoglycemia Glucagon (Glucagon) 1 mg IM PRN PRN PRN Reason: Hypoglycemia Dextrose/Water (D5w) 1,000 mls @ 0 mls/hr IV .Q0M PRN PRN Reason: Hypoglycemia Piperacillin Sod/Tazobactam (Sod 4.5 gm/ Sodium Chloride) 100 mls @ 200 mls/hr IVPB 0200,0800,1400,2000 [facility] Last Admin: 09/06/18 20:13 Dose: 100 mls Vancomycin HCl 750 mg/ Sodium (Chloride) 250 mls @ 250 mls/hr IVPB 1500 [facility] Last Admin: 09/06/18 17:22 Dose: 250 mls Insulin Human Lispro (Humalog) 0 units SC .MILD SLIDING SCALE PRN PRN Reason: Mild Correctional Scale Miscellaneous Medication (Pharmacy To Dose) 1 each IVPB PRN PRN PRN Reason: Pharmacy to dose Ondansetron HCl (Zofran Odt) 4 mg PO Q6H PRN PRN Reason: Nausea/Vomiting
--- NOTE | 2018-09-06 22:21 | CON ---
DATE OF CONSULTATION: 09/06/2018 REASON FOR CONSULTATION: Pneumonia vs UTI. HISTORY OF PRESENT ILLNESS: An 82-year-old patient with history of multiple myeloma, possibly managed by Dr. Xiao with Imbruvica as well as a past history of CVA and atrial fibrillation. About 3 months before this admission, she developed abdominal pain and had a CT scan which demonstrated diverticulitis. In October 2016, she sustained a fall and had a right femoral neck fracture and a left intertrochanteric femur fracture, and she was not felt to be a candidate for any fixation. Since then, she is nonambulatory, pretty much stays in the wheelchair all day long and except for when she goes to bed, and she always has an indwelling Fair catheter for management of her bladder output. This admission is related to the development of abdominal pain localized to the right upper quadrant associated with nausea and where she describes as the worst productive cough that she ever had in her life. It is not clear if the abdominal pain came first or most likely the cough came first and then she developed the abdominal pain after that The initial findings in the emergency room showed a BP 170/96, pulse 113, respiratory rate 18, temperature 100.1, and O2 saturation 92% room air. Pertinent findings in the physical examination included the patient did not appear in distress. She did have pain at the time of the visit. She was alert and oriented. Lungs sounds were diminished at the bases. She was appeared tachycardic. The abdomen was tender in the right upper quadrant, but no distention. Initial labs included a white cell count 14,000, hemoglobin 12, platelets 159 with 82% neutrophils. Sodium 135, creatinine 0.58 with calcium 9.2, AST 10, ALT less than 7, alkaline phosphatase 61, albumin 3.4, globulin 3.6, and lipase less than 4. Urinalysis with the urine wbc 11 to 20. The initial impression from the admitting team was pneumonia, hypoxemia, hypertension, type 2 diabetes, and multiple myeloma. The patient has been started on piperacillin-tazobactam and vancomycin. Currently, she is awake. She does not appear in distress. She appears chronically ill. Oriented, pleasant. Denies any headaches. No change in visual symptoms, sore throat, odynophagia, or dysphagia. No neck pain. She has a little bit of lower back pain. No respiratory symptoms. She has a Fair catheter with clear urine drainage and a peripheral IV access. She can move her feet, but unable to lift her knee from the bed. She feels like anytime she tries to move her lower extremities, she feels the motion of the particular in the right side of the hip joint from the nonunion associated with previous fracture. PAST MEDICAL HISTORY: Multiple myeloma for many years, on Imbruvica; hypertension; atrial fibrillation; prior CVA with type 2 diabetes; CHF, EF 40% to 45%; diverticulitis, recently diagnosed; and bilateral femur fractures, this is a repeat femur fracture. She had a previous one, which had been fixed, but the latest ones have been left without repair, and she has been bed ridden and wheelchair-bound since. FAMILY HISTORY: Hypertension. SOCIAL HISTORY: Never smoker. No alcoholic beverage use. CURRENT MEDICATIONS: In addition to the antimicrobials, she is on; 1. Eliquis. 2. Vitamin C. 3. Tums. 4. Glucagon. 5. Insulin. 6. Zofran. PHYSICAL EXAMINATION: VITAL SIGNS: T-max 98.5, blood pressure 119/71, pulse 100, respirations 18, and O2 saturation 100% on 2 L nasal cannula. SKIN: Exam shows mild stage 1 to 2 abrasions in the presacral region. She has edema in lower extremities with hyperpigmentation and stasis changes. Fair catheter and peripheral IV access. Temporal wasting noted. Ocular movements conjugate. Sclerae white. Pupils are equal, 2 mm, and reactive. Nasal passages are patent. The oral cavity is moist. She still has a few remaining [place] teeth in place. NECK: Stiff to all direction. LUNGS: Symmetric air entry. Diminished breath sounds at the right base with inspiratory crackles. HEART: S1, S2. Irregular rate. There is no S3. ABDOMEN: Soft. Not distended or tender. No ascites. No bladder distention. MUSCULOSKELETAL: She is able to move her toes and the feet at the ankle level, but barely lifts the left knee from the bed to the right when she cannot. She is awake, oriented, follows commands, good speech pattern and good recollection. LABORATORY DATA: White cell count 14,000, down to 10.9; hemoglobin 12 and 10; platelets 159; 81% neutrophils; 13% lymphocytes; and 4% monocytes. Sodium 133, creatinine 0.66 with bilirubin 0.7, transaminases normal, albumin 3.4 and 2.9, globulin 3.6 and 3.2. Urinalysis with 11 to 20 wbc's. Microbiology with one set of venous sample with coagulase-negative Staph, one out of two sets that is urine culture with gram-negative khoa, yet to be identified and susceptibility tested. Previous cultures from June with Proteus mirabilis in the urine, Brevundimonas diminuta, and Escherichia coli. The Proteus was resistant to all antimicrobials except for amikacin, gentamicin, meropenem, and tobramycin. The Escherichia coli has had a more broader susceptibility profile. IMAGING STUDIES: We have an abdomen and pelvis CT, remarkable for bibasilar lung parenchymal infiltrates. The abdomen itself was okay. The chest x-ray with airspace disease in fewer right lung base. ASSESSMENT: 1. Multiple myeloma for many years, on Imbruvica. 2. Pathologic fractures, right and left hips, which have left unrepaired due to multiple medical risks, felt to be prohibitive for any intervention in the recent past. 3. Recent episode of diverticulitis, treated conservatively. 4. New onset of severe cough with sputum production and abnormal findings and chest x-ray. The abdominal pain is likely referred from the chest or may be associated with the muscle contractions associated with severe coughing spells. 5. Indwelling Fair catheter with abnormal urinary findings. DISCUSSION: Differential diagnosis includes respiratory tract infection with usual pathogens, community-acquired, versus urinary tract process, and possibility of bacteremia is considered as well. Intraabdominal inflammatory process is unlikely at this point in time. The right upper quadrant pain is probably referred from the chest wall related to the muscle spasms associated with coughing spells. More recently, the microbiology of community onset or other healthcare-associated process that is not ventilator associated, has been shown to be pretty much similar to the usual community-acquired pneumonia, so it is not necessary to cover for Pseudomonas or a broader range of pathogens. In that regard, one could switch her to Rocephin, azithromycin, or the usual regimen for CAP. She already has received vaccination against pneumococcal pneumonia in the past, probably more than once. The other possibility would be a pulmonary embolism in view of her immobility and in her case, she has been receiving Eliquis so that would make it unlikely that she has developed thromboembolism, although sometimes Eliquis is known to fail and prevention of deep vein thrombosis, but I think in her case, the infective pneumonitis is the more likely scenario. Job ID: [id number] [email or web address]
[2018-09-07] MEDS: Piperacillin/Tazobactam 4.5 GM in Sodium Chloride 0.9% 100 ML IVPB SCH ×4 (01:44→21:26)
[2018-09-07 06:15] LABS: #Lymphocytes 1.3 thou/uL (1.20-3.40); #Monocytes 0.4 thou/uL (0.11-0.59); #Neutrophils 5.5 thou/uL (1.40-6.50); %Basophils 0.4 % (0.0-1.0); %Eosinophils 0.1 % (0.0-10.0); %Monocytes 5.5 % (0.0-10.0); Hemoglobin 9.7 g/dL (12.0-16.0); Mean Corpuscular HGB CONC 33.2 g/dL (32.0-36.0); Mean Corpuscular Volume 93.2 fL (78.0-98.0); Mean Platelet Volume 10.2 fL (7.4-10.4); Platelet Count 140 thou/uL (130-400); RBC Distribution Width 13.3 % (11.5-14.5); Red Blood Cell (RBC) Count 3.13 mill/uL (4.20-5.40); White Blood Cell (WBC) Count 7.3 thou/uL (4.8-10.8)
[2018-09-07 06:39] LABS: ALT (SGPT) Less than 7 U/L (8-55); AST (SGOT) 9 U/L (5-34); Albumin 2.5 g/dL (3.4-4.8); Alkaline Phosphatase 52 U/L (40-150); Anion Gap 14 mmol/L (10-20); BUN (Urea Nitrogen) 23 mg/dL (9.8-20.1); Bilirubin, Total 0.8 mg/dL (0.2-1.2); Calc. Creatinine Clearance 50 mL/min (70-130); Carbon Dioxide 22 mmol/L (23-31); Chloride 104 mmol/L (98-107); Estimated GFR-MDRD 83; Globulin 2.7 g/dL (2.4-3.5); Glucose 82 mg/dL (83-110); Potassium 3.5 mmol/L (3.5-5.1); Protein, Total 5.2 g/dL (6.0-8.3); Sodium 136 mmol/L (136-145)
[2018-09-07] MEDS: Ascorbic Acid 500 mg Chewable Tablet PO SCH (08:02)
[2018-09-07] MEDS: Apixaban 2.5 MG TAB PO SCH ×2 (08:02→21:34)
--- NOTE | 2018-09-07 11:47 | RAD ---
MODIFIED BARIUM SWALLOW: HISTORY: Dysphagia. Feeding difficulties. FINDINGS: Exam was performed in conjunction with speech pathology with multiple consistencies. Video review is available and demonstrates good bolus formation and retropulsion. Early spill of contrast with multiple consistencies. Deep penetration demonstrated with thinner consistencies. Aspiration was appa rent when patient was drinking from a straw with thin liquid and was also demonstrated with barium coated solids. Patient did demonstrate coughing upon aspiration. Mild pooling within the valleculae. Worse with solids. The esophagus below the level of the hypopharynx was not evaluated. Please see separate detailed repo rt from speech pathology. Fluoroscopy time 1.8 minutes. Transcribed Date/Time: 09/07/2018 1:34 PM
[2018-09-07] MEDS: Vancomycin HCl 750 MG in Sodium Chloride 0.9% 250 ML 250 ML IVPB SCH (15:29)
[2018-09-07] MEDS ORDERED: traMADol HCl 50 MG TAB PO PRN (15:36)
--- NOTE | 2018-09-07 16:27 | PRG ---
DATE OF SERVICE: 09/07/2018 SUBJECTIVE: The patient reports she is feeling okay. She has no new complaints today. OBJECTIVE: VITAL SIGNS: Temperature 98.6, pulse 112, respirations 20, O2 saturation 100% on 2 L nasal cannula, blood pressure 136/69 up to 163/78. GENERAL APPEARANCE: Age-appropriate female, in no distress. She is awake, alert, pleasant, cooperative, conversant. HEART: Irregular, tachycardic. LUNGS: Clear to auscultation, although difficult to get a good exam because of the patient's difficulty with positioning. ABDOMEN: Soft, nontender, and nondistended. EXTREMITIES: No significant edema. She has both lower extremity significantly outwardly rotated. LABORATORY DATA: White count 7.3, hemoglobin 9.7, platelets 140. Chemistries; BUN is 23, creatinine 0.68, glucose 82 up to 145, total protein 5.2, albumin 2.5. Blood cultures growing Staph in 2 of 2 cultures. Urine culture growing gram-negative khoa. IMPRESSION AND PLAN: 1. Acute hypoxic respiratory failure, appears to be improving. She is saturating pretty well right now on nasal cannula. We will be able to wean off, I believe, fairly quickly. 2. Aspiration pneumonia. She is currently on vancomycin and Zosyn. She had ID consult for this and the urinary tract infection. Recommended the possibility of converting back to Rocephin and azithromycin. However, given the staph cultures, we will continue with the vancomycin and Zosyn until we get full ID and sensitivity on that unless ID prefers the change sooner. 3. Dysphagia. The patient has a history of stroke with some right-sided weakness, had repeat swallowing study here revealing dysphagia. She is on pureed solids and thin liquids. 4. Possible urinary tract infection. This patient has a chronic indwelling Fair catheter because she has the history of the bilateral hip fractures, which are unrepaired and her inability to ambulate at all. She is typically colonized. She is growing gram-negative rods, suspect that is colonization only. 5. History of cerebrovascular accident with right-sided weakness and dysphagia. 6. History of multiple myeloma, on Imbruvica, currently being held. 7. Atrial fibrillation. The patient typically is on anticoagulation as well as a beta-rosendo. The beta-rosendo was not resumed when she was admitted. We will go ahead and resume that now as she is intermittently tachycardic. 8. Diabetes mellitus. Blood sugars have been very well controlled. We will hold off on resuming the metformin unless there is further evidence that she is going to need it. 9. Hypertension. Resume the patient's beta-rosendo and LAYA inhibitor that she is on at home. Job ID: [id number]
[2018-09-07] MEDS: Lisinopril 20 MG TAB PO SCH (21:34)
[2018-09-07] MEDS: Pravastatin Sodium 20 MG TAB PO SCH (21:34)
[2018-09-07] MEDS: Docusate 100 MG CAP PO SCH (21:34)
[2018-09-08] MEDS: Piperacillin/Tazobactam 4.5 GM in Sodium Chloride 0.9% 100 ML IVPB SCH ×4 (01:58→19:56)
[2018-09-08] MEDS: Ascorbic Acid 500 mg Chewable Tablet PO SCH (08:03)
[2018-09-08] MEDS: Docusate 100 MG CAP PO SCH ×2 (08:03→19:57)
[2018-09-08] MEDS: Apixaban 2.5 MG TAB PO SCH ×2 (08:04→19:57)
[2018-09-08] MEDS ORDERED: Saccharomyces boulardii 250 MG CAP PO SCH (09:00)
[2018-09-08] MEDS ORDERED: Ferrous Sulfate 325 MG TAB PO SCH (09:00)
[2018-09-08] MEDS ORDERED: Cyanocobalamin (Vitamin B-12) 1,000 MCG TAB PO SCH (09:00)
[2018-09-08] MEDS ORDERED: Furosemide 20 MG TAB PO SCH (09:00)
[2018-09-08] MEDS ORDERED: Potassium Chloride 10 MEQ TAB PO SCH (09:00)
[2018-09-08 14:35] LABS: Vancomycin, Trough 9.1 ug/mL
[2018-09-08] MEDS ORDERED: Vancomycin HCl 1.25 GM in Sodium Chloride 0.9% 250 ML 250 ML IVPB SCH (15:00)
[2018-09-08 19:56] VITALS: BP 183/79; TEMP 97.9
[2018-09-08] MEDS: Lisinopril 20 MG TAB PO SCH (19:56)
[2018-09-08] MEDS: Pravastatin Sodium 20 MG TAB PO SCH (19:56)
[2018-09-08] MEDS: Acetaminophen 325 MG TAB PO PRN (19:57)
== END 2018-09-08 20:51 | disposition home or self-care (01) | DRG 698 ==
LOC: ERS 10:33 → ERHOLD 13:54 → T4-B 16:56
PROVIDERS: ADMIT Family Medicine; ATTEND Family Medicine
DX: T83.511A Infection and inflammatory reaction due to indwelling urethral catheter, initial encounter (principal); A41.9 Sepsis, unspecified organism; J96.01 Acute respiratory failure with hypoxia; J69.0 Pneumonitis due to inhalation of food and vomit; I69.351 Hemiplegia and hemiparesis following cerebral infarction affecting right dominant side; I50.22 Chronic systolic (congestive) heart failure; C90.00 Multiple myeloma not having achieved remission; M84.459A Pathological fracture, hip, unspecified, initial encounter for fracture; I48.91 Unspecified atrial fibrillation; E11.9 Type 2 diabetes mellitus without complications; I11.0 Hypertensive heart disease with heart failure; R82.71 Bacteriuria; M19.90 Unspecified osteoarthritis, unspecified site; E78.00 Pure hypercholesterolemia, unspecified; C88.0 Waldenstrom macroglobulinemia; N39.0 Urinary tract infection, site not specified; Z90.49 Acquired absence of other specified parts of digestive tract; Z88.8 Allergy status to other drugs, medicaments and biological substances; Z91.040 Latex allergy status; Z79.899 Other long term (current) drug therapy; Z79.84 Long term (current) use of oral hypoglycemic drugs
CPT/HCPCS: 36415; 36416; 71045; 74177; 74230; 80053; 80202; 81003; 81015; 83605; 83690; 85025; 87040; 87077; 87086; 87149; 87186; 93005; 96365; 96367; 96375; J0456; J0696; J2270; J2405; J2543; J3370; J3480; J3490; J7050; Q9966; Q9967

== ENCOUNTER 2018-11-26 13:17 | Emergency (ER) | payer MEDICARE ==
[2018-11-26 14:35] LABS: Bilirubin Negative (Negative); Blood, Urine Moderate (Negative); Glucose, Urine (Dipstick) Negative (Negative); Leukocyte Large (Negative); Nitrite Negative (Negative); Protein, Urine (Dipstick) Trace mg/dL (Neg-Trace); Urobilinogen 0.2 mg/dL (Less than 2)
[2018-11-26 14:38] LABS: Clarity Cloudy (Clear)
[2018-11-26 14:45] LABS: Squamous Epithelial 0-3 HPF (0-3); WBC/HPF Greater Than 50 HPF (0-3)
[2018-11-26 14:46] LABS: Bacteria/HPF 3+ HPF (None Seen)
== END 2018-11-26 15:55 | disposition home or self-care (01) ==
LOC: ERS 13:17
DX: Z46.6 Encounter for fitting and adjustment of urinary device (principal); I48.91 Unspecified atrial fibrillation; E78.5 Hyperlipidemia, unspecified; I11.0 Hypertensive heart disease with heart failure; I50.9 Heart failure, unspecified; Z79.899 Other long term (current) drug therapy; Z86.73 Personal history of transient ischemic attack (TIA), and cerebral infarction without residual deficits; Z79.84 Long term (current) use of oral hypoglycemic drugs; Z79.891 Long term (current) use of opiate analgesic
CPT/HCPCS: 51702; 81003; 81015; 87077; 87086; 87186

== ENCOUNTER 2018-12-15 18:15 | Observation (INO) | payer MEDICARE, OTHER ==
--- NOTE | 2018-12-15 18:50 | RAD ---
XR Chest 1 View Portable HISTORY: Hypertension arm numbness and tingling. COMPARISON: 09/05/2018 study. FINDINGS: Heart size is enlarged. Opacification the right base is compatible with right effusion with associated atelectasis or possibly infiltrate. The left lung is clear. No pulmonary vascular engorgement. IMPRESSION: Cardiomegaly with opacification of the right base with obscuration of the right hemidiaph ragm most suggestive of effusion with either infiltrate or atelectasis. A PA and lateral chest film would be helpful in assessment.
[2018-12-15 19:17] LABS: #Eosinphils 0.1 thou/uL (0.0-0.7); #Lymphocytes 2.6 thou/uL (1.20-3.40); #Monocytes 0.5 thou/uL (0.11-0.59); #Neutrophils 3.7 thou/uL (1.40-6.50); %Basophils 0.2 % (0.0-1.0); %Eosinophils 1.1 % (0.0-10.0); %Lymphocytes 37.9 % (21.0-51.0); %Monocytes 7.6 % (0.0-10.0); %Neutrophils 53.3 % (42.0-75.0); Hemoglobin 11.4 g/dL (12.0-16.0); Mean Corpuscular HGB CONC 34.8 g/dL (32.0-36.0); Mean Corpuscular Hemoglobin 30.3 pg (27.0-31.0); Mean Corpuscular Volume 87.2 fL (78.0-98.0); Mean Platelet Volume 9.9 fL (7.4-10.4); Platelet Count 137 thou/uL (130-400); Red Blood Cell (RBC) Count 3.77 mill/uL (4.20-5.40)
[2018-12-15 19:27] LABS: ALT (SGPT) 9 U/L (8-55); AST (SGOT) 14 U/L (5-34); Albumin 3.3 g/dL (3.4-4.8); Alkaline Phosphatase 62 U/L (40-150); Anion Gap 12 mmol/L (10-20); BUN (Urea Nitrogen) 20 mg/dL (9.8-20.1); Bilirubin, Total 0.8 mg/dL (0.2-1.2); CK (CPK) 25 U/L (29-168); Calc. Creatinine Clearance 0 mL/min (70-130); Calcium 9.2 mg/dL (7.8-10.44); Carbon Dioxide 26 mmol/L (23-31); Chloride 99 mmol/L (98-107); Estimated GFR-MDRD Greater than 90; Globulin 3.7 g/dL (2.4-3.5); Glucose 105 mg/dL (83-110); Sodium 133 mmol/L (136-145)
[2018-12-15 19:51] LABS: Bilirubin Negative (Negative); Blood, Urine 2+ (Negative); Clarity Turbid (Clear); Glucose, Urine (Dipstick) Normal (Negative); Leukocyte 500 Leu/uL (Negative); Nitrite Negative (Negative); Protein, Urine (Dipstick) 50 mg/dL (Neg-Trace); RBC/HPF 21-50 HPF (0-3); Squamous Epithelial 0-3 HPF (0-3); Urobilinogen Normal mg/dL (Less than 2); WBC/HPF Greater than 50 HPF (0-3)
[2018-12-15 20:00] LABS: Bacteria/HPF 1+ HPF (None Seen)
[2018-12-15] MEDS ORDERED: hydrALAZINE 20 MG/ML VIAL ONE (20:01)
[2018-12-15] MEDS ORDERED: hydrALAZINE 20 MG/ML VIAL SLOW IVP PRN (20:25)
[2018-12-15] MEDS ORDERED: cefTRIAXone\\ROCEPHIN 1 GM VIAL ONE (20:32)
[2018-12-15 22:59] LABS: Troponin I 0.014 ng/mL (< 0.028)
[2018-12-15 23:53] VITALS: BMI 19.5
[2018-12-16 01:39] LABS: Troponin I Less than 0.010 ng/mL (< 0.028)
[2018-12-16] MEDS: traMADol HCl 50 MG TAB PO PRN (02:14)
[2018-12-16] MEDS ORDERED: Ondansetron PF 4 MG/2 ML Vial IVP PRN (04:35)
[2018-12-16] MEDS ORDERED: Ondansetron ODT 4 MG TAB PO PRN (05:33)
[2018-12-16] MEDS ORDERED: hydrALAZINE 20 MG/ML VIAL SLOW IVP PRN (05:33)
[2018-12-16] MEDS ORDERED: HumaLOG 300 UNITS/3 ML VIAL SC PRN ×2 (05:33)
[2018-12-16] MEDS ORDERED: Dextrose 5% in Water 1,000 ML IV PRN (05:33)
[2018-12-16] MEDS ORDERED: Dextrose 50% Abboject 50 ML SYRINGE SLOW IVP PRN (05:33)
[2018-12-16] MEDS ORDERED: Acetaminophen 500 MG TAB PO PRN (05:33)
[2018-12-16] MEDS: Hydrochlorothiazide 25 MG TAB PO SCH (08:29)
[2018-12-16] MEDS: Cyanocobalamin (Vitamin B-12) 1,000 MCG TAB PO SCH (08:30)
[2018-12-16] MEDS: metFORMIN 500 MG TAB PO SCH ×2 (08:30→17:15)
[2018-12-16] MEDS: Gabapentin 100 MG CAP PO SCH ×2 (08:30→21:26)
[2018-12-16] MEDS: Famotidine 20 MG TAB PO SCH ×2 (08:31→21:26)
[2018-12-16] MEDS: Potassium Chloride 20 MEQ TAB PO SCH (08:31)
[2018-12-16] MEDS: Ascorbic Acid 500 mg Chewable Tablet PO SCH (08:31)
[2018-12-16] MEDS: Ferrous Sulfate 325 MG TAB PO SCH (08:31)
[2018-12-16] MEDS: Calcium Carbonate + Vit D 1 TAB PO SCH (08:31)
[2018-12-16] MEDS: Apixaban 2.5 MG TAB PO SCH ×2 (08:31→21:26)
[2018-12-16] MEDS: Docusate 100 MG CAP PO SCH ×2 (08:32→21:26)
[2018-12-16] MEDS ORDERED: IBRUTINIB PO SCH ×2 (09:00)
--- NOTE | 2018-12-16 09:10 | HP ---
PRIMARY CARE PROVIDER: Hira Wallace MD CHIEF COMPLAINT: Elevated blood pressure. HISTORY OF PRESENT ILLNESS: This is an 83-year-old female, who presents to [facility] Emergency Department complaining of persistently elevated blood pressure. The patient with long-standing hypertension with associated dizziness. EMS personnel were summoned to the patient's home by her home health nurse due to elevated blood pressure readings. 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 The patient received sublingual nitroglycerin and nitroglycerin paste which did lower the pressure. The patient has noted bilateral hand and forearm tingling, but no unilateral weakness, fall, fever, or neck stiffness. In the emergency room, the patient underwent general evaluation including chest imaging showing cardiomegaly with opacification of the right base and obscured right hemidiaphragm. The patient received IV Rocephin and hydralazine, and transferred to the telemetry unit for further observation. PAST MEDICAL HISTORY: 1. Hypertension. 2. Congestive heart failure. 3. Chronic atrial fibrillation. 4. Osteomyelitis. 5. History of CVA with right-sided deficits. 6. Diabetes mellitus, type 2. 7. Multiple myeloma status post chemotherapy. 8. Hyperlipidemia. PAST SURGICAL HISTORY: 1. Status post cholecystectomy. 2. Status post hysterectomy. 3. Status post right knee and left foot repair. 4. Status post bilateral femur surgery. CURRENT MEDICATIONS: 1. Vitamin C 500 mg p.o. daily. 2. Vitamin B12 1000 mcg p.o. daily. 3. Pravachol 20 mg p.o. at bedtime. 4. Metoprolol succinate 50 mg p.o. daily. 5. Imbruvica 140 mg three tablets p.o. daily. 6. Metformin 250 mg p.o. b.i.d. 7. Ferrous sulfate 325 mg p.o. daily. 8. Potassium chloride 10 mEq p.o. daily. 9. Lisinopril 20 mg p.o. daily. 10. Eliquis 5 mg p.o. b.i.d. 11. Lasix 20 mg p.o. daily. 12. Tramadol 50 mg p.o. t.i.d. p.r.n. ALLERGIES: FENTANYL, LATEX, NATURAL RUBBER. FAMILY HISTORY: Positive for coronary artery disease and hypertension. SOCIAL HISTORY: The patient resides in [place], [place] with her . No current alcohol, tobacco, or illicit drug use. Ambulatory with use of a rolling walker. REVIEW OF SYSTEMS: CONSTITUTIONAL: Negative for weight loss or gain, ability to conduct usual activities. SKIN: Negative for rash, itching. EYES: Negative for double vision, pain. ENT/MOUTH: Negative for nose bleeding, neck stiffness, pain, tenderness. CARDIOVASCULAR: Negative for palpitations, dyspnea on exertion, orthopnea. RESPIRATORY: Negative for shortness of breath, wheezing, cough, hemoptysis, fever or night sweats. GASTROINTESTINAL: Negative for poor appetite, abdominal pain, heartburn, nausea, vomiting, constipation, or diarrhea. GENITOURINARY: Negative for urgency, frequency, dysuria, nocturia. MUSCULOSKELETAL: Negative for pain, swelling. NEUROLOGIC/PSYCHIATRIC: Negative for anxiety, depression. ALLERGY/IMMUNOLOGIC: Negative for skin rash, bleeding tendency. Otherwise, negative except as stated per HPI. PHYSICAL EXAMINATION: VITAL SIGNS: On admission. Blood pressure 190/85, pulse 75, respiratory rate 16, temperature 100 degrees Fahrenheit, O2 saturation 97% on room air. GENERAL APPEARANCE: This is an 83-year-old female, alert and oriented x3, pleasant, in no acute distress. HEENT: Pupils are equal, round, reactive to light and accommodation. Extraocular muscles are intact. No scleral icterus. No conjunctival injection. Nares are patent. OP is clear. NECK: Supple. No cervical adenopathy. No thyromegaly. No carotid bruits. No JVD appreciated. Cervical spine with full active and passive range of motion. No meningeal signs noted. CARDIOVASCULAR: Shows a regular rate and rhythm with 1/6 to 2/6 systolic ejection murmur loudest in the right upper sternal border. ABDOMEN: Rounded, soft, nontender, and nondistended. Bowel sounds are positive in all 4 quadrants. There is no hepatosplenomegaly. No abdominal bruits. No rebound or guarding appreciated. EXTREMITIES: Warm and dry with fair turgor. No clubbing, cyanosis, or asymmetric edema appreciated. Pulses are palpable distally at the dorsalis pedis, posterior tibial, and popliteal arteries bilaterally. Capillary refill is less than 2 seconds. NEUROLOGIC: Cranial nerves 2 through 12 are grossly intact. No focal or lateralizing signs appreciated. PERTINENT LAB AND X-RAY FINDINGS: Sodium 133, potassium 4.0, chloride 99, CO2 of 26, BUN 20, creatinine 0.62, estimated GFR greater than 90. Glucose 105, calcium 9.2. LFTs within normal limits. Troponin I negative x3. BNP 183. CBC showed a white blood cell count of 7.0, hemoglobin 11.4, hematocrit 33, platelet count 137 with normal differential. Portable chest x-ray dated 12/15/2018, showed cardiomegaly with opacification of the right base and obscuration of the right hemidiaphragm. ASSESSMENT AND PLAN: 1. Hypertensive urgency. We will resume home antihypertensive regimen with additional hydralazine IV for systolic greater than or equal to 170. Continue to modify and titrate home regimen for more optimization of blood pressure trend. 2. Chronic hyponatremia. Stable currently. Continue to monitor sodium trend during the hospital course. 3. Chronic normocytic anemia, likely multifactorial given patient's overall comorbid status. Serial monitoring. 4. Chronic multiple myeloma, treated with Imbruvica. 5. Chronic atrial fibrillation with rate control. Continue Eliquis 2.5 mg p.o. b.i.d. 6. Prophylaxis. SCDs while in bed. Pepcid 20 mg p.o. b.i.d. 7. Code status, full. Surrogate medical decision maker is patient's daughter. Job ID: [id number]
[2018-12-16] MEDS: IBRUTINIB PO SCH (15:26)
[2018-12-16] MEDS: cefTRIAXone\\ROCEPHIN 1 GM in Sodium Chloride 0.9% 100 ML IVPB SCH (21:25)
[2018-12-16] MEDS: Lisinopril 10 MG TAB PO SCH (21:26)
[2018-12-16] MEDS: Pravastatin Sodium 20 MG TAB PO SCH (21:26)
[2018-12-16] MEDS: cloNIDine 0.1 MG TAB PO PRN (23:41)
[2018-12-17 05:59] LABS: Anion Gap 9 mmol/L (10-20); BUN (Urea Nitrogen) 26 mg/dL (9.8-20.1); Calc. Creatinine Clearance 51 mL/min (70-130); Carbon Dioxide 27 mmol/L (23-31); Chloride 100 mmol/L (98-107); Estimated GFR-MDRD 86; Sodium 132 mmol/L (136-145)
[2018-12-17 06:00] LABS: Calcium 8.8 mg/dL (7.8-10.44); Glucose 107 mg/dL (83-110)
[2018-12-17 06:46] LABS: Band 3 % (5-11); Eosinophils 1 % (0-10); Hemoglobin 10.3 g/dL (12.0-16.0); Lymphocytes 45 % (21-51); MDiff Complete? YES; Mean Corpuscular HGB CONC 33.2 g/dL (32.0-36.0); Mean Corpuscular Hemoglobin 29.7 pg (27.0-31.0); Mean Corpuscular Volume 89.7 fL (78.0-98.0); Mean Platelet Volume 9.7 fL (7.4-10.4); Monocytes 8 % (0-10); Neutrophil 43 % (42-75); Platelet Count 143 thou/uL (130-400); RBC Distribution Width 13.2 % (11.5-14.5); Red Blood Cell (RBC) Count 3.47 mill/uL (4.20-5.40); White Blood Cell (WBC) Count 5.3 thou/uL (4.8-10.8)
--- NOTE | 2018-12-17 08:23 | PDOC.HOSPP ---
- Subjective Encounter Date: 12/16/18 Encounter Time: 09:30 Subjective: Patient resting, denies complaints, states her BP was high at home and is worried. - Objective Vital Signs & Weight: Vital Signs (12 hours) Temp Pulse Resp BP BP Pulse Ox 12/17/18 07:43 97.8 F 71 15 194/80 H 97 12/17/18 04:04 97.8 F 67 18 149/63 H 96 12/16/18 23:45 97.8 F 88 18 178/77 H 96 12/16/18 23:41 178/77 H 12/16/18 21:26 170/75 H Weight Admit Weight 50.031 kg Weight 50.031 kg I&O: 12/16/18 12/17/18 12/18/18 06:59 06:59 06:59 Intake Total 50 600 Output Total 800 250 Balance -750 350 Result Diagrams: 12/17/18 05:29 12/17/18 05:29 Additional Labs: Accuchecks 12/17/18 12/16/18 12/16/18 05:26 20:21 17:01 POC Glucose 113 H 168 H 167 H 12/16/18 11:15 POC Glucose 142 H ROS - Medication Medications: Active Medications Generic Name Dose Route Start Last Admin Trade Name Freq PRN Reason Stop Dose Admin Apixaban 2.5 mg 12/16/18 09:00 12/16/18 21:26 Eliquis PO 2.5 mg BID YUNG Administration Ascorbic Acid 500 mg 12/16/18 09:00 12/16/18 08:31 Vitamin C PO 500 mg DAILY YUNG Administration Calcium/Vitamin D 1 tab 12/16/18 09:00 12/16/18 08:31 Caltrate 600 + Vit D PO 1 tab DAILY YUNG Administration Clonidine 0.1 mg 12/16/18 05:33 12/16/18 23:41 Catapres PO 0.1 mg Q4H PRN Administration SBP Greater Than 170 Cyanocobalamin 1,000 mcg 12/16/18 09:00 12/16/18 08:30 Vitamin B-12 PO 1,000 mcg DAILY YUNG Administration Docusate Sodium 100 mg 12/16/18 09:00 12/16/18 21:26 Colace PO 100 mg BID YUNG Administration Famotidine 20 mg 12/16/18 09:00 12/16/18 21:26 Pepcid PO 20 mg BID YUNG Administration Ferrous Sulfate 325 mg 12/16/18 08:00 12/16/18 08:31 Feosol PO 325 mg QAM-WM YUNG Administration Gabapentin 100 mg 12/16/18 09:00 12/16/18 21:26 Neurontin PO 100 mg BID YUNG Administration Hydralazine HCl 10 mg 12/15/18 20:25 12/16/18 01:01 Apresoline SLOW IVP 10 mg Q6H PRN Administration SBP Greater Than 170 Hydrochlorothiazide 12.5 mg 12/16/18 09:00 12/16/18 08:29 Hydrochlorothiazide PO 12.5 mg DAILY YUNG Administration Ceftriaxone Sodium 1 gm/ 100 mls @ 200 mls/hr 12/16/18 21:00 12/16/18 21:25 Sodium Chloride IVPB 100 mls Q24HR YUNG Administration Lisinopril 30 mg 12/16/18 21:00 12/16/18 21:26 Zestril PO 30 mg HS YUNG Administration Metformin HCl 250 mg 12/16/18 08:00 12/16/18 17:15 Glucophage PO 250 mg BID-WM YUNG Administration Ondansetron HCl 4 mg 12/16/18 04:35 12/16/18 04:47 Zofran IVP 4 mg Q6H PRN Administration Nausea/Vomiting Ibrutinib [Imbruvica 0 each 12/16/18 09:00 12/16/18 15:26 ] 3 Cap PO 1 each DAILY YUNG Administration Potassium Chloride 20 meq 12/16/18 09:00 12/16/18 08:31 K-Dur PO 20 meq DAILY YUNG Administration Pravastatin Sodium 20 mg 12/16/18 21:00 12/16/18 21:26 Pravachol PO 20 mg HS YUNG Administration Tramadol HCl 50 mg 12/16/18 01:51 12/16/18 02:14 Ultram PO 50 mg TID PRN Administration Muscle Pain - Exam Eye: PERRL Neck: supple Heart: RRR Respiratory: CTAB Gastrointestinal: soft, non-tender Extremities: no edema Skin: normal turgor Neurological: CN's grossly intact Musculoskeletal: normal tone Psychiatric: normal affect Hosp A/P (1) Anemia Code(s): D64.9 - ANEMIA, UNSPECIFIED Status: Acute Qualifiers: (2) Systolic congestive heart failure Code(s): I50.20 - UNSPECIFIED SYSTOLIC (CONGESTIVE) HEART FAILURE Status: Acute (3) Chronic anemia Code(s): D64.9 - ANEMIA, UNSPECIFIED Status: Chronic (4) HTN (hypertension) Code(s): I10 - ESSENTIAL (PRIMARY) HYPERTENSION Status: Chronic (5) Hyperlipidemia Code(s): E78.5 - HYPERLIPIDEMIA, UNSPECIFIED Status: Chronic - Plan Increased CCB for AM, will continue to trend Recheck labs in am PRN hypertensives ordered as needed
[2018-12-17] MEDS: Famotidine 20 MG TAB PO SCH ×2 (09:29→20:33)
[2018-12-17] MEDS: Hydrochlorothiazide 25 MG TAB PO SCH (09:29)
[2018-12-17] MEDS: Potassium Chloride 20 MEQ TAB PO SCH (09:29)
[2018-12-17] MEDS: metFORMIN 500 MG TAB PO SCH ×2 (09:29→18:08)
[2018-12-17] MEDS: Cyanocobalamin (Vitamin B-12) 1,000 MCG TAB PO SCH (09:29)
[2018-12-17] MEDS: Gabapentin 100 MG CAP PO SCH ×2 (09:29→20:33)
[2018-12-17] MEDS: Apixaban 2.5 MG TAB PO SCH ×2 (09:31→20:33)
[2018-12-17] MEDS: Docusate 100 MG CAP PO SCH ×2 (09:31→20:33)
[2018-12-17] MEDS: Ferrous Sulfate 325 MG TAB PO SCH (09:31)
[2018-12-17] MEDS: Calcium Carbonate + Vit D 1 TAB PO SCH (09:31)
[2018-12-17] MEDS: Ascorbic Acid 500 mg Chewable Tablet PO SCH (09:31)
[2018-12-17] MEDS: IBRUTINIB PO SCH ×2 (09:41→14:02)
[2018-12-17 14:34] LABS: Hemoglobin 11.9 g/dL (12.0-16.0)
--- NOTE | 2018-12-17 16:49 | PDOC.HOSPP ---
- Subjective Encounter Date: 12/17/18 Encounter Time: 09:30 Subjective: Patient examined today, denies complaints - Objective Vital Signs & Weight: Vital Signs (12 hours) Temp Pulse Resp BP Pulse Ox 12/17/18 13:55 72 147/67 H 12/17/18 12:35 98.1 F 69 15 186/79 H 99 12/17/18 07:43 97.8 F 71 15 194/80 H 97 Weight Admit Weight 50.031 kg Weight 50.031 kg I&O: 12/16/18 12/17/18 12/18/18 06:59 06:59 06:59 Intake Total 50 600 Output Total 800 250 Balance -750 350 Result Diagrams: 12/17/18 14:25 12/17/18 05:29 Additional Labs: Accuchecks 12/17/18 12/17/18 12/16/18 10:41 05:26 20:21 POC Glucose 121 H 113 H 168 H 12/16/18 17:01 POC Glucose 167 H ROS - Review of Systems Genitourinary: reports: hematuria - Medication Medications: Active Medications Generic Name Dose Route Start Last Admin Trade Name Freq PRN Reason Stop Dose Admin Apixaban 2.5 mg 12/16/18 09:00 12/17/18 09:31 Eliquis PO 2.5 mg BID YUNG Administration Ascorbic Acid 500 mg 12/16/18 09:00 12/17/18 09:31 Vitamin C PO 500 mg DAILY YUNG Administration Calcium/Vitamin D 1 tab 12/16/18 09:00 12/17/18 09:31 Caltrate 600 + Vit D PO 1 tab DAILY YUNG Administration Clonidine 0.1 mg 12/16/18 05:33 12/16/18 23:41 Catapres PO 0.1 mg Q4H PRN Administration SBP Greater Than 170 Cyanocobalamin 1,000 mcg 12/16/18 09:00 12/17/18 09:29 Vitamin B-12 PO 1,000 mcg DAILY YUNG Administration Docusate Sodium 100 mg 12/16/18 09:00 12/17/18 09:31 Colace PO 100 mg BID YUNG Administration Famotidine 20 mg 12/16/18 09:00 12/17/18 09:29 Pepcid PO 20 mg BID YUNG Administration Ferrous Sulfate 325 mg 12/16/18 08:00 12/17/18 09:31 Feosol PO 325 mg QAM-WM YUNG Administration Gabapentin 100 mg 12/16/18 09:00 12/17/18 09:29 Neurontin PO 100 mg BID YUNG Administration Hydralazine HCl 10 mg 12/15/18 20:25 12/16/18 01:01 Apresoline SLOW IVP 10 mg Q6H PRN Administration SBP Greater Than 170 Hydralazine HCl 10 mg 12/16/18 05:33 12/17/18 12:41 Apresoline SLOW IVP 10 mg Q4H PRN Administration SBP > 180 and HR < 70 Hydrochlorothiazide 12.5 mg 12/16/18 09:00 12/17/18 09:29 Hydrochlorothiazide PO 12.5 mg DAILY YUNG Administration Ceftriaxone Sodium 1 gm/ 100 mls @ 200 mls/hr 12/16/18 21:00 12/16/18 21:25 Sodium Chloride IVPB 100 mls Q24HR YUNG Administration Lisinopril 30 mg 12/16/18 21:00 12/16/18 21:26 Zestril PO 30 mg HS YUNG Administration Metformin HCl 250 mg 12/16/18 08:00 12/17/18 09:29 Glucophage PO 250 mg BID-WM YUNG Administration Metoprolol Succinate 100 mg 12/17/18 09:00 12/17/18 09:31 Toprol Xl PO 100 mg DAILY YUNG Administration Ondansetron HCl 4 mg 12/16/18 04:35 12/16/18 04:47 Zofran IVP 4 mg Q6H PRN Administration Nausea/Vomiting Ibrutinib [Imbruvica 0 each 12/17/18 15:00 12/17/18 14:02 ] 3 Cap PO 1 each 1500 YUNG Administration Potassium Chloride 20 meq 12/16/18 09:00 12/17/18 09:29 K-Dur PO 20 meq DAILY YUNG Administration Pravastatin Sodium 20 mg 12/16/18 21:00 12/16/18 21:26 Pravachol PO 20 mg HS YUNG Administration Tramadol HCl 50 mg 12/16/18 01:51 12/16/18 02:14 Ultram PO 50 mg TID PRN Administration Muscle Pain - Exam Eye: PERRL ENT: moist mucosa Neck: supple Heart: RRR Respiratory: CTAB Gastrointestinal: soft, non-tender Extremities: no cyanosis Skin: normal turgor Neurological: CN's grossly intact Musculoskeletal: normal tone, normal strength Psychiatric: normal affect, A&O x 3 Hosp A/P (1) Anemia Code(s): D64.9 - ANEMIA, UNSPECIFIED Status: Acute Qualifiers: (2) Systolic congestive heart failure Code(s): I50.20 - UNSPECIFIED SYSTOLIC (CONGESTIVE) HEART FAILURE Status: Acute (3) Chronic anemia Code(s): D64.9 - ANEMIA, UNSPECIFIED Status: Chronic (4) HTN (hypertension) Code(s): I10 - ESSENTIAL (PRIMARY) HYPERTENSION Status: Chronic (5) Hyperlipidemia Code(s): E78.5 - HYPERLIPIDEMIA, UNSPECIFIED Status: Chronic - Plan Will add hydralazine to daily medications, increase to CCB did not decrease BP Nurse noted pink tinged urine while performed urinary cath care, will add serial H&Hs. Patient is on Eliquis 2.5mg and if H&H drops, we will consider holding Recheck labs in am PRN hypertensives ordered as needed
[2018-12-17] MEDS: cloNIDine 0.1 MG TAB PO PRN ×2 (17:05→23:21)
[2018-12-17] MEDS: Pravastatin Sodium 20 MG TAB PO SCH (20:33)
[2018-12-17] MEDS: Lisinopril 10 MG TAB PO SCH (20:33)
[2018-12-17] MEDS: hydrALAZINE 25 MG TAB PO SCH (20:34)
[2018-12-17] MEDS: cefTRIAXone\\ROCEPHIN 1 GM in Sodium Chloride 0.9% 100 ML IVPB SCH (20:35)
[2018-12-17 22:01] LABS: Hemoglobin 11.7 g/dL (12.0-16.0)
[2018-12-18 05:59] LABS: #Basophils 0.1 thou/uL (0.0-0.2); #Eosinphils 0.1 thou/uL (0.0-0.7); #Lymphocytes 1.9 thou/uL (1.20-3.40); #Monocytes 0.3 thou/uL (0.11-0.59); #Neutrophils 2.2 thou/uL (1.40-6.50); %Basophils 1.5 % (0.0-1.0); %Eosinophils 1.6 % (0.0-10.0); %Lymphocytes 41.8 % (21.0-51.0); %Monocytes 7.6 % (0.0-10.0); %Neutrophils 47.5 % (42.0-75.0); Hemoglobin 10.8 g/dL (12.0-16.0); Mean Corpuscular HGB CONC 35.3 g/dL (32.0-36.0); Mean Corpuscular Hemoglobin 31.8 pg (27.0-31.0); Mean Corpuscular Volume 90.1 fL (78.0-98.0); Mean Platelet Volume 9.6 fL (7.4-10.4); Platelet Count 139 thou/uL (130-400); RBC Distribution Width 13.2 % (11.5-14.5); Red Blood Cell (RBC) Count 3.38 mill/uL (4.20-5.40); White Blood Cell (WBC) Count 4.5 thou/uL (4.8-10.8)
[2018-12-18 06:23] LABS: ALT (SGPT) 12 U/L (8-55); AST (SGOT) 16 U/L (5-34); Alkaline Phosphatase 50 U/L (40-150); Anion Gap 12 mmol/L (10-20); BUN (Urea Nitrogen) 21 mg/dL (9.8-20.1); Bilirubin, Total 0.6 mg/dL (0.2-1.2); Calc. Creatinine Clearance 55 mL/min (70-130); Calcium 8.8 mg/dL (7.8-10.44); Carbon Dioxide 24 mmol/L (23-31); Chloride 99 mmol/L (98-107); Estimated GFR-MDRD Greater than 90; Globulin 3.3 g/dL (2.4-3.5); Glucose 101 mg/dL (83-110); Potassium 3.7 mmol/L (3.5-5.1); Protein, Total 6.3 g/dL (6.0-8.3); Sodium 131 mmol/L (136-145)
[2018-12-18] MEDS: Gabapentin 100 MG CAP PO SCH ×2 (09:32→20:31)
[2018-12-18] MEDS: Cyanocobalamin (Vitamin B-12) 1,000 MCG TAB PO SCH (09:32)
[2018-12-18] MEDS: hydrALAZINE 25 MG TAB PO SCH ×4 (09:32→20:31)
[2018-12-18] MEDS: Apixaban 2.5 MG TAB PO SCH ×2 (09:32→20:31)
[2018-12-18] MEDS: metFORMIN 500 MG TAB PO SCH ×2 (09:32→17:52)
[2018-12-18] MEDS: Docusate 100 MG CAP PO SCH ×2 (09:32→20:31)
[2018-12-18] MEDS: Potassium Chloride 20 MEQ TAB PO SCH (09:32)
[2018-12-18] MEDS: Ferrous Sulfate 325 MG TAB PO SCH (09:32)
[2018-12-18] MEDS: Famotidine 20 MG TAB PO SCH ×2 (09:33→20:31)
[2018-12-18] MEDS: Ascorbic Acid 500 mg Chewable Tablet PO SCH (09:33)
[2018-12-18] MEDS: Calcium Carbonate + Vit D 1 TAB PO SCH (09:33)
[2018-12-18] MEDS: Hydrochlorothiazide 25 MG TAB PO SCH (09:33)
[2018-12-18] MEDS: cloNIDine 0.1 MG TAB PO PRN (12:32)
--- NOTE | 2018-12-18 14:27 | PDOC.HOSPP ---
- Subjective Encounter Date: 12/18/18 Encounter Time: 11:30 Subjective: Patient examined, was sitting up, just finished lunch. Reports she feels better today and denies any new complaints. - Objective Vital Signs & Weight: Vital Signs (12 hours) Temp Pulse Resp BP Pulse Ox 12/18/18 13:45 72 123/60 12/18/18 12:25 98.0 F 77 15 195/89 H 99 12/18/18 09:26 98.0 F 73 15 193/86 H 99 12/18/18 04:00 95.7 F L 78 16 151/70 H 96 Weight Admit Weight 50.031 kg Weight 50.031 kg I&O: 12/17/18 12/18/18 12/19/18 06:59 06:59 06:59 Intake Total 600 1320 Output Total 250 2275 Balance 350 -955 Result Diagrams: 12/18/18 05:35 12/18/18 05:35 Additional Labs: Accuchecks 12/18/18 12/17/18 12/17/18 11:15 20:35 16:58 POC Glucose 115 H 118 H 104 ROS - Review of Systems Musculoskeletal: reports: other Neurological: reports: weakness - Medication Medications: Active Medications Generic Name Dose Route Start Last Admin Trade Name Freq PRN Reason Stop Dose Admin Apixaban 2.5 mg 12/16/18 09:00 12/18/18 09:32 Eliquis PO 2.5 mg BID YUNG Administration Ascorbic Acid 500 mg 12/16/18 09:00 12/18/18 09:33 Vitamin C PO 500 mg DAILY YUNG Administration Calcium/Vitamin D 1 tab 12/16/18 09:00 12/18/18 09:33 Caltrate 600 + Vit D PO 1 tab DAILY YUNG Administration Clonidine 0.1 mg 12/16/18 05:33 12/17/18 23:21 Catapres PO 0.1 mg Q4H PRN Administration SBP Greater Than 170 Cyanocobalamin 1,000 mcg 12/16/18 09:00 12/18/18 09:32 Vitamin B-12 PO 1,000 mcg DAILY YUNG Administration Docusate Sodium 100 mg 12/16/18 09:00 12/18/18 09:32 Colace PO 100 mg BID YUNG Administration Famotidine 20 mg 12/16/18 09:00 12/18/18 09:33 Pepcid PO 20 mg BID YUNG Administration Ferrous Sulfate 325 mg 12/16/18 08:00 12/18/18 09:32 Feosol PO 325 mg QAM-WM YUNG Administration Gabapentin 100 mg 12/16/18 09:00 12/18/18 09:32 Neurontin PO 100 mg BID YUNG Administration Hydralazine HCl 10 mg 12/16/18 05:33 12/17/18 12:41 Apresoline SLOW IVP 10 mg Q4H PRN Administration SBP > 180 and HR < 70 Hydralazine HCl 25 mg 12/17/18 21:00 12/18/18 09:32 Apresoline PO 25 mg TID YUNG Administration Hydrochlorothiazide 12.5 mg 12/16/18 09:00 12/18/18 09:33 Hydrochlorothiazide PO 12.5 mg DAILY YUNG Administration Lisinopril 30 mg 12/16/18 21:00 12/17/18 20:33 Zestril PO 30 mg HS YUNG Administration Metformin HCl 250 mg 12/16/18 08:00 12/18/18 09:32 Glucophage PO 250 mg BID-WM YUNG Administration Metoprolol Succinate 100 mg 12/17/18 09:00 12/18/18 09:33 Toprol Xl PO 100 mg DAILY YUNG Administration Ondansetron HCl 4 mg 12/16/18 04:35 12/16/18 04:47 Zofran IVP 4 mg Q6H PRN Administration Nausea/Vomiting Ibrutinib [Imbruvica 0 each 12/17/18 15:00 12/17/18 14:02 ] 3 Cap PO 1 each 1500 YUNG Administration Potassium Chloride 20 meq 12/16/18 09:00 12/18/18 09:32 K-Dur PO 20 meq DAILY YUNG Administration Pravastatin Sodium 20 mg 12/16/18 21:00 12/17/18 20:33 Pravachol PO 20 mg HS YUNG Administration Tramadol HCl 50 mg 12/16/18 01:51 12/16/18 02:14 Ultram PO 50 mg TID PRN Administration Muscle Pain - Exam Eye: anicteric sclera ENT: moist mucosa Neck: supple, no JVD Heart: RRR, no rubs, irregular Respiratory: CTAB Gastrointestinal: soft, non-tender Extremities: no cyanosis Skin: normal turgor Neurological: no new deficit Musculoskeletal - other findings: Weakness to bilateral hands Psychiatric: normal affect, A&O x 3 Hosp A/P (1) Anemia Code(s): D64.9 - ANEMIA, UNSPECIFIED Status: Acute Qualifiers: (2) Systolic congestive heart failure Code(s): I50.20 - UNSPECIFIED SYSTOLIC (CONGESTIVE) HEART FAILURE Status: Acute (3) Chronic anemia Code(s): D64.9 - ANEMIA, UNSPECIFIED Status: Chronic (4) HTN (hypertension) Code(s): I10 - ESSENTIAL (PRIMARY) HYPERTENSION Status: Chronic (5) Hyperlipidemia Code(s): E78.5 - HYPERLIPIDEMIA, UNSPECIFIED Status: Chronic - Plan Hydralazine + clonidine appear to improve pressure but is still labile. HGB appears stable, urine has cleared, is no longer pink tinged, DC'd rocephin after culture S/S... added Levaquin daily x3 days Discussed case with Dr. Cuevas who agrees to plan Hopefully can DC tomorrow Recheck labs in am PRN hypertensives ordered as needed
[2018-12-18] MEDS: IBRUTINIB PO SCH (16:22)
[2018-12-18] MEDS: Pravastatin Sodium 20 MG TAB PO SCH (20:32)
[2018-12-18] MEDS: Lisinopril 10 MG TAB PO SCH (20:33)
[2018-12-19] MEDS: traMADol HCl 50 MG TAB PO PRN (02:05)
[2018-12-19 08:49] LABS: #Lymphocytes 1.8 thou/uL (1.20-3.40); #Monocytes 0.4 thou/uL (0.11-0.59); #Neutrophils 2.3 thou/uL (1.40-6.50); %Basophils 0.3 % (0.0-1.0); %Eosinophils 0.9 % (0.0-10.0); %Lymphocytes 39.2 % (21.0-51.0); %Neutrophils 51.7 % (42.0-75.0); Hemoglobin 10.8 g/dL (12.0-16.0); Mean Corpuscular HGB CONC 34.2 g/dL (32.0-36.0); Mean Corpuscular Hemoglobin 29.9 pg (27.0-31.0); Mean Corpuscular Volume 87.5 fL (78.0-98.0); Mean Platelet Volume 9.2 fL (7.4-10.4); Platelet Count 146 thou/uL (130-400); White Blood Cell (WBC) Count 4.5 thou/uL (4.8-10.8)
[2018-12-19] MEDS: Ferrous Sulfate 325 MG TAB PO SCH (08:55)
[2018-12-19] MEDS: Apixaban 2.5 MG TAB PO SCH (08:55)
[2018-12-19] MEDS: Potassium Chloride 20 MEQ TAB PO SCH (08:56)
[2018-12-19] MEDS: Gabapentin 100 MG CAP PO SCH (08:56)
[2018-12-19] MEDS: metFORMIN 500 MG TAB PO SCH ×2 (08:56→16:58)
[2018-12-19] MEDS: Hydrochlorothiazide 25 MG TAB PO SCH (08:56)
[2018-12-19] MEDS: Ascorbic Acid 500 mg Chewable Tablet PO SCH (08:56)
[2018-12-19] MEDS: Calcium Carbonate + Vit D 1 TAB PO SCH (08:56)
[2018-12-19] MEDS: Docusate 100 MG CAP PO SCH (08:56)
[2018-12-19] MEDS: Famotidine 20 MG TAB PO SCH (08:57)
[2018-12-19] MEDS: Cyanocobalamin (Vitamin B-12) 1,000 MCG TAB PO SCH (08:57)
[2018-12-19] MEDS: hydrALAZINE 25 MG TAB PO SCH ×2 (08:57→15:38)
[2018-12-19 09:02] LABS: Anion Gap 11 mmol/L (10-20); BUN (Urea Nitrogen) 24 mg/dL (9.8-20.1); Calc. Creatinine Clearance 45 mL/min (70-130); Calcium 8.8 mg/dL (7.8-10.44); Carbon Dioxide 26 mmol/L (23-31); Chloride 98 mmol/L (98-107); Estimated GFR-MDRD 74; Glucose 80 mg/dL (83-110); Potassium 4.2 mmol/L (3.5-5.1); Sodium 131 mmol/L (136-145)
[2018-12-19 15:36] VITALS: BP 180/82; TEMP 98.5
[2018-12-19] MEDS: cloNIDine 0.1 MG TAB PO PRN (15:39)
[2018-12-19] MEDS: IBRUTINIB PO SCH (15:39)
== END 2018-12-19 18:45 | disposition home or self-care (01) ==
LOC: ERS 18:15 → 2NO 19:53
PROVIDERS: ADMIT Internal Medicine; ATTEND Internal Medicine
DX: I16.0 Hypertensive urgency (principal); I11.0 Hypertensive heart disease with heart failure; I50.20 Unspecified systolic (congestive) heart failure; E87.1 Hypo-osmolality and hyponatremia; D64.9 Anemia, unspecified; C90.00 Multiple myeloma not having achieved remission; I48.2 Chronic atrial fibrillation; E78.5 Hyperlipidemia, unspecified; E11.69 Type 2 diabetes mellitus with other specified complication; M86.9 Osteomyelitis, unspecified; Z86.73 Personal history of transient ischemic attack (TIA), and cerebral infarction without residual deficits; Z88.5 Allergy status to narcotic agent; Z91.040 Latex allergy status; Z79.01 Long term (current) use of anticoagulants; Z79.84 Long term (current) use of oral hypoglycemic drugs; Z79.899 Other long term (current) drug therapy
CPT/HCPCS: 71045; 80048 ×2; 80053 ×2; 82550; 82962 ×4; 83880; 84484 ×3; 85007; 85014; 85018; 85025 ×3; 85027; 87077; 87086; 87186; 93005; 96365; 96375 ×2; 96376 ×2; 99285; G0378 ×6; 36415; 36416; 81003; 81015; J0360; J0696; J2405; J3490

== ENCOUNTER 2018-12-28 15:22 | Inpatient (IN) | payer MEDICARE ==
[2018-12-28 15:57] LABS: #Lymphocytes 1.3 thou/uL (1.20-3.40); #Monocytes 0.6 thou/uL (0.11-0.59); #Neutrophils 8.9 thou/uL (1.40-6.50); %Basophils 0.3 % (0.0-1.0); %Eosinophils 0.3 % (0.0-10.0); %Lymphocytes 11.7 % (21.0-51.0); %Monocytes 5.7 % (0.0-10.0); Hemoglobin 12.2 g/dL (12.0-16.0); Mean Corpuscular HGB CONC 34.8 g/dL (32.0-36.0); Mean Corpuscular Hemoglobin 30.6 pg (27.0-31.0); Mean Corpuscular Volume 87.8 fL (78.0-98.0); Mean Platelet Volume 9.4 fL (7.4-10.4); Platelet Count 214 thou/uL (130-400); RBC Distribution Width 12.8 % (11.5-14.5); Red Blood Cell (RBC) Count 3.98 mill/uL (4.20-5.40); White Blood Cell (WBC) Count 10.8 thou/uL (4.8-10.8)
[2018-12-28 16:19] LABS: ALT (SGPT) 12 U/L (8-55); AST (SGOT) 17 U/L (5-34); Albumin 3.4 g/dL (3.4-4.8); Alkaline Phosphatase 68 U/L (40-150); Anion Gap 13 mmol/L (10-20); BUN (Urea Nitrogen) 26 mg/dL (9.8-20.1); Bilirubin, Total 1.1 mg/dL (0.2-1.2); Calc. Creatinine Clearance 0 mL/min (70-130); Calcium 9.4 mg/dL (7.8-10.44); Carbon Dioxide 24 mmol/L (23-31); Chloride 93 mmol/L (98-107); Estimated GFR-MDRD 84; Globulin 3.8 g/dL (2.4-3.5); Glucose 152 mg/dL (83-110); Potassium 3.8 mmol/L (3.5-5.1); Protein, Total 7.2 g/dL (6.0-8.3); Sodium 126 mmol/L (136-145)
--- NOTE | 2018-12-28 16:44 | RAD ---
XR Chest 1 View Portable HISTORY: Cough COMPARISON: 12/15/2018 FINDINGS: The heart is enlarged. The aorta is tortuous. There is a moderate-sized right pleural effus ion. The left lung is unremarkable.
[2018-12-28] MEDS ORDERED: Piperacillin/Tazobactam 4.5 GM VIAL ONE (18:16)
[2018-12-28 18:24] LABS: Bilirubin Negative (Negative); Blood, Urine Large (Negative); Glucose, Urine (Dipstick) Negative (Negative); Leukocyte Small (Negative); Nitrite Negative (Negative); Protein, Urine (Dipstick) > or equal to 300 mg/dL (Neg-Trace); Urobilinogen 0.2 mg/dL (Less than 2)
[2018-12-28 18:25] LABS: Clarity Turbid (Clear)
[2018-12-28 18:31] LABS: RBC/HPF 21-50 HPF (0-3); WBC/HPF Greater Than 50 HPF (0-3)
[2018-12-28 18:34] LABS: Bacteria/HPF 2+ HPF (None Seen); Squamous Epithelial 0-3 HPF (0-3); Yeast-Budding 4+ HPF (None Seen); Yeast-Hyphae 2+ HPF (None Seen)
[2018-12-28 19:15] LABS: Troponin I Less than 0.010 ng/mL (< 0.028)
[2018-12-28] MEDS ORDERED: Insulin Regular 300 UNITS/3 ML VIAL SC PRN (21:35)
[2018-12-28] MEDS ORDERED: Dextrose 5% in Water 1,000 ML IV PRN (21:35)
[2018-12-28] MEDS ORDERED: Dextrose 50% Abboject 50 ML SYRINGE SLOW IVP PRN (21:35)
[2018-12-28 22:12] LABS: Troponin I Less than 0.010 ng/mL (< 0.028)
[2018-12-28 22:33] VITALS: BMI 20.9
--- NOTE | 2018-12-28 22:53 | CT ---
CT THORAX NONCONTRAST: DATE: 12/28/2018 HISTORY: 83-year-old female with right pleural effusion, productive cough, and dyspnea COMPARISON: 09/04/2016 FINDINGS: In 2017, there was a very small right pleural effusion. Currently, there is a large right pleural eff usion that occupies 75% volume of the right hemithoracic cavity or greater, and extends into the posterior mediastinum, to the left posterior mediastinum posterior to the left mainstem bronchus and anterior to the descending thoracic aorta. The large pleural effusion displaces the heart, trachea, thoracic aorta, and the rest of the mediastinum to the left of midline. Previously, there was a small to moderate-sized pericardial effusion. Currently there is no pericardial effusion, but cardiomegaly with chamber dilation remains. Heavy atherosclerotic callus location without aneurysm of thoracic aorta. Heavy atherosclerotic calcification of LAD, RCA, and LCx. The entire right lower lobe and most of the right middle lobe are collapsed. The right upper lobe par enchyma is anteriorly compressed and displaced. No pulmonary edema. Small focal loculated left pleural effusion at left posterior lateral lower zone. No consolidation or pulmonary edema in left sarah ng. Narrowing and extrinsic compression of the right lower lobe bronchus by the mass effect caused by the large right pleural effusion. No pneumothorax. IMPRESSION: 1) large right pleural effusion causing total atelectasis of right lower lobe, partial atelectasis of right middle lobe, and mass effect, significantly displacing the mediastinum and heart to the left. 2) cardiomegaly with left atrial and right atrial dilation. 3) ICD-10: I 25.84 coronary atherosclerosis due to calcified coronary lesion.
[2018-12-28] MEDS ORDERED: Sodium Chloride 0.9% 10 ML ONE (23:43)
[2018-12-29] MEDS: Piperacillin/Tazobactam 3.375 GM in Sodium Chloride 0.9% 100 ML IVPB SCH ×5 (00:33→23:20)
--- NOTE | 2018-12-29 03:53 | HP ---
CHIEF COMPLAINT: Shortness of breath. HISTORY OF PRESENT ILLNESS: This patient is an 83-year-old female with a history of multiple myeloma, on Imbruvica. She also has a history of congestive heart failure. The patient was recently admitted with hypertensive urgency. She appears to have had some chronic evidence of lower lobe inflammatory changes on prior imaging. The patient presented to the emergency department today with shortness of breath. She reports that yesterday she felt just slightly short of breath, but today she became much more short of breath. She felt as though she needed to cough. However, when she tried, she had some discomfort and was unable to muster a good cough. So the cough was nonproductive. She felt like she may have some phlegm, but could not produce it. She had a little bit of pain in her chest with attempts at coughing, but not otherwise. She was seen by her home health nurse today and was also seen on a home visit by Catarina Brody who was concerned about her lung exam and ordered a chest x-ray. However, the patient's symptoms progressed before the results could be known and she presented here to the emergency department. REVIEW OF SYSTEMS: The patient has had no fevers or chills. She has had poor appetite and has eaten some this evening. Otherwise, she has had normal urine output and normal bowel habits. She has no other specific concerns. All other systems were reviewed, all pertinent positive and negative noted in the history of present illness. PAST MEDICAL HISTORY: 1. Hypertension, CHF, chronic atrial fibrillation. The patient is not being followed for that because she is bed-bound and the family has been unable to get her to make any outpatient appointments. 2. History of osteomyelitis. 3. History of CVA with right-sided deficits. 4. Diabetes mellitus. 5. Multiple myeloma status post chemotherapy, currently on Imbruvica. 6. Hyperlipidemia. PAST SURGICAL HISTORY: Cholecystectomy, hysterectomy, right knee and left foot repair, bilateral femur surgery with I believe it is some nonhealing and chronic debility with being bed-bound. FAMILY HISTORY: Notable for coronary artery disease and hypertension. SOCIAL HISTORY: The patient lives in [place] with her . He is present with her today as well as her daughter. She is a nonsmoker, nondrinker, and nondrug user. She is a full code and her or daughter would be her surrogate decision maker should that become necessary. ALLERGIES: FENTANYL, LATEX, NATURAL RUBBER. CURRENT MEDICATIONS: 1. Vitamin C 500 mg daily. 2. B12 1000 mcg p.o. daily. 3. Potassium 10 mEq daily. 4. Metoprolol XR 100 mg daily. 5. Hydrochlorothiazide 25 mg daily. 6. Imbruvica 140 mg 3 p.o. daily. 7. Ferrous sulfate 325 p.o. daily. 8. Tramadol 50 mg daily. PHYSICAL EXAMINATION: VITAL SIGNS: Initially, BP 192/103, pulse 96, respirations 18, temperature 98.6, O2 saturations 100% on 4 L. GENERAL APPEARANCE: Debilitated appearing age-appropriate female, with some generalized sarcopenia. HEENT: RAMIRO, no OP lesions. NECK: Supple and symmetric. HEART: Irregularly irregular with no murmurs. LUNGS: Very diminished on the right side. She has some rales at the left base. ABDOMEN: Soft, nontender, and nondistended. Positive bowel sounds. No masses. No organomegaly. EXTREMITIES: She has significant disuse atrophy of the lower extremities with lateral rotation of both feet and ankles. She has no edema. No palpable cords. No warmth or erythema. NEUROLOGIC: As above. The patient does not have significant movement of her lower extremities, minimal in the right upper extremity as well. LABORATORY DATA: White count 10.8, hemoglobin 12.2, platelets 214. Sodium 126, potassium 3.8, chloride 93, CO2 of 24, BUN 26, creatinine 0.67, glucose 152, lactic acid 1.0, calcium 9.4, total bilirubin 1.1, AST 17, ALT 12, alkaline phosphatase 68. Troponins negative x2. Urinalysis with greater than 50 white cells, 21 to 50 red cells, large blood, negative nitrites, positive bacteria, yeast hyphae and budding yeast. Chest x-ray shows a moderate right pleural effusion, IMPRESSION AND PLAN: 1. Dyspnea. The patient appears to have dyspnea related to a significant right-sided pleural effusion which appears to be advanced from previous imaging. The etiology is unclear, but she does have some history of congestive heart failure. 2. Right pleural effusion of unclear etiology. It appears to be progressive. We will get a CT chest without contrast. We will also obtain echocardiogram and a BNP. 3. Chronic atrial fibrillation, need to clarify if the patient is on Eliquis. It appears as though she likely is although that is not currently on her medication list. Continue with metoprolol. She appears to have good rate control. 4. Multiple myeloma. We will resume Imbruvica when that becomes possible. 5. Hyponatremia. Suspect may be related to some congestive heart failure as is the pleural effusion. We will need to continue to monitor with treatment. 6. Chest pain. I do not believe this is cardiac. Suspect it is related to the pleural effusion. 7. General debility secondary to prior leg fractures and cerebrovascular accident. 8. History of diabetes mellitus. The patient is not currently on any medications. We will order Accu-Cheks and hold on sliding scale unless that proves to be necessary. Job ID: [id number]
[2018-12-29] MEDS ORDERED: Sodium Chloride 0.9% 10 ML ONE (04:26)
[2018-12-29] MEDS: traMADol HCl 50 MG TAB PO PRN ×2 (05:11→10:30)
[2018-12-29 05:25] LABS: #Monocytes 0.7 thou/uL (0.11-0.59); #Neutrophils 5.9 thou/uL (1.40-6.50); %Basophils 0.1 % (0.0-1.0); %Eosinophils 0.2 % (0.0-10.0); %Lymphocytes 13.1 % (21.0-51.0); %Monocytes 9.4 % (0.0-10.0); %Neutrophils 77.2 % (42.0-75.0); Hemoglobin 11.3 g/dL (12.0-16.0); Mean Corpuscular HGB CONC 34.5 g/dL (32.0-36.0); Mean Corpuscular Volume 87.1 fL (78.0-98.0); Mean Platelet Volume 9.4 fL (7.4-10.4); Platelet Count 210 thou/uL (130-400); RBC Distribution Width 12.7 % (11.5-14.5); Red Blood Cell (RBC) Count 3.76 mill/uL (4.20-5.40); White Blood Cell (WBC) Count 7.6 thou/uL (4.8-10.8)
[2018-12-29 05:33] LABS: Anion Gap 13 mmol/L (10-20); BUN (Urea Nitrogen) 26 mg/dL (9.8-20.1); Calc. Creatinine Clearance 60 mL/min (70-130); Calcium 8.9 mg/dL (7.8-10.44); Carbon Dioxide 22 mmol/L (23-31); Chloride 93 mmol/L (98-107); Estimated GFR-MDRD Greater than 90; Glucose 132 mg/dL (83-110); Potassium 3.7 mmol/L (3.5-5.1); Sodium 124 mmol/L (136-145)
[2018-12-29] MEDS ORDERED: Enoxaparin Sodium 40 MG/0.4 ML SYRINGE SC SCH (09:00)
[2018-12-29] MEDS ORDERED: traMADol HCl 50 MG TAB PO PRN (11:09)
[2018-12-29] MEDS ORDERED: Docusate 100 MG CAP PO PRN (11:09)
[2018-12-29] MEDS ORDERED: cloNIDine 0.1 MG TAB PO PRN (11:09)
[2018-12-29] MEDS ORDERED: Vancomycin HCl 1 GM in Premix Bag 1 BAG IVPB SCH (12:00)
--- NOTE | 2018-12-29 12:38 | RAD ---
Chest one view HISTORY: Thoracentesis. COMPARISON: 12/28/2018 FINDINGS: Cardiac silhouette is magnified. Pulmonary vasculature upper limits of normal. Significant interval decrease in right pleural fluid. Partial reexpansion of the right lower lobe. Patient remains rotated leftward. No evidence of pneumothorax. Osseous structures are demineralized. Calcific ation within the aorta. IMPRESSION: Interval thoracentesis with significant reduction in right pleural fluid. No evidence of pneumothorax.
--- NOTE | 2018-12-29 12:39 | OP ---
DATE OF PROCEDURE: 12/29/2018 PROCEDURE PERFORMED: Thoracentesis. DESCRIPTION OF PROCEDURE: After informed consent, the right posterior thorax was cleaned with chlorhexidine. 1% Xylocaine was infiltrated into the right ninth intercostal space in the midscapular area and 20 mL of bloody sanguinous fluid was removed. Thereafter, using an 8-Croatian catheter, total of 2000 mL 2 L of fluid was removed. Pleural effusion was sent for appropriate studies including cytology and culture. The patient tolerated the procedure well. Job ID: [id number]
[2018-12-29 12:44] LABS: Fluid, Triglycerides 31 mg/dL (Not Available); Pleural Fluid, Amylase Less than 30 U/L (Not Available); Pleural Fluid, Glucose 121 mg/dL; Pleural Fluid, LDH 252 U/L (Not Available); Pleural Fluid, Protein 4.1 g/dL
[2018-12-29 12:46] LABS: RBC Count-Automated (BF) 16065 /cumm; WBC/Nucleated-Auto (BF) 4156 uL
[2018-12-29 12:47] LABS: BF Color Red; Body Fluid Source Thoracentesis Fluid; Clarity Cloudy/Turbid (Clear)
[2018-12-29 12:48] LABS: Tube # 1
[2018-12-29 13:36] LABS: BF Segmented Neutrophils 58 %; Cell Count Non Hematic 16 %; Lymphocytes 26 %
--- NOTE | 2018-12-29 14:07 | PDOC.HOSPP ---
- Subjective Encounter Date: 12/29/18 Encounter Time: 14:00 Subjective: f/u for R pleural effusion s/p thoracentesis with 2L removed. Feels much better now and breathing easier. Receiving Zosyn/Vancomycin empirically. - Objective Vital Signs & Weight: Vital Signs (12 hours) Temp Pulse Resp BP Pulse Ox 12/29/18 12:00 97.9 F 87 15 122/58 L 95 12/29/18 10:33 187/91 H 12/29/18 07:51 98.0 F 108 H 17 191/109 H 96 12/29/18 03:54 97.3 F L 81 12 170/81 H 96 Weight Weight 117 lb 14.4 oz I&O: 12/28/18 12/29/18 12/30/18 06:59 06:59 06:59 Intake Total 270 Output Total 425 Balance -155 Result Diagrams: 12/29/18 04:33 12/29/18 04:33 Additional Labs: Accuchecks 12/29/18 10:56 POC Glucose 155 H Radiology Reviewed by me: Yes (PCXR - post-R thoracentesis, marked decrease in R effusion) EKG Reviewed by me: Yes (Tele - A-fib in 80's) Hospitalist ROS - Medication Medications: Active Medications Generic Name Dose Route Start Last Admin Trade Name Freq PRN Reason Stop Dose Admin Enoxaparin Sodium 40 mg 12/29/18 09:00 12/29/18 09:16 Lovenox SC 40 mg 0900 YUNG Administration Piperacillin Sod/Tazobactam 100 mls @ 200 mls/hr 12/28/18 23:59 12/29/18 12: 45 Sod 3.375 gm/ Sodium Chloride IVPB 100 mls Q6HR YUNG Administration Metoprolol Succinate 100 mg 12/29/18 09:00 12/29/18 09:16 Toprol Xl PO 100 mg DAILY YUNG Administration - Exam General Appearance: NAD, awake alert Eye: PERRL, anicteric sclera ENT: normocephalic atraumatic, no oropharyngeal lesions Neck: supple, symmetric, no JVD, no thyromegaly, no lymphadenopathy Heart: no gallops, no rubs, normal peripheral pulses, irregular Heart - other findings: diminishe in R base Gastrointestinal: soft, non-tender, non-distended, normal bowel sounds, no palpable masses Extremities: no cyanosis, no clubbing, no edema Skin: normal turgor, no lesions Neurological: no new deficit Musculoskeletal: generalized weakness, diffuse muscle atrophy Psychiatric: normal affect, A&O x 3 Hosp A/P (1) Acute respiratory failure with hypoxia Code(s): J96.01 - ACUTE RESPIRATORY FAILURE WITH HYPOXIA Status: Acute Plan: Improved after R-sided thoracentesis, O2 prn (2) Recurrent right pleural effusion Code(s): J90 - PLEURAL EFFUSION, NOT ELSEWHERE CLASSIFIED Status: Acute Plan: s/p R-sided thoracentesis with 2L removed, O2 prn, await pleural fluid analysis , continue empiric Zosyn/Vancomycin, check 2D echo (3) Chronic atrial fibrillation Code(s): I48.2 - CHRONIC ATRIAL FIBRILLATION Status: Chronic Plan: Continue rate-control measures (4) Chronic anticoagulation Code(s): 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 ANTICOAGULANTS Status: Chronic Plan: Resume Eliquis 2.5mg BID (5) Hyponatremia Code(s): E87.1 - HYPO-OSMOLALITY AND HYPONATREMIA Status: Chronic Plan: Likely multifactorial including iatrogenic, poor po intake and volume fluctuations, hold HCTZ, serial monitoring (6) Severe muscle deconditioning Code(s): R29.898 - OTH SYMPTOMS AND SIGNS INVOLVING THE MUSCULOSKELETAL SYSTEM Status: Chronic Plan: Chronic, non-ambulatory at baseline (7) Bedbound Code(s): Z74.01 - BED CONFINEMENT STATUS Status: Chronic Plan: See above - Plan plan discussed w/ family, continue antibiotics, psychologist social, respiratory therapy Stable currently Await final pleural fluid analysis Continue empiric Zosyn/Vanc Resume home Eliquis Resume home BP regimen AM lab: BMP, CBC
[2018-12-29] MEDS: hydrALAZINE 25 MG TAB PO SCH ×2 (15:55→21:47)
[2018-12-29] MEDS: metFORMIN 500 MG TAB PO SCH (16:00)
--- NOTE | 2018-12-29 17:35 | CON ---
DATE OF CONSULTATION: HISTORY OF PRESENT ILLNESS: Alie Us is an 83-year-old female, who was admitted to the hospital with chest pain and shortness of breath last night. Pulmonary is consulted regarding a large pleural effusion. It sounds to be a very poor historian, though she says she is nonsmoker. No previous history of TB, pneumonia, or bronchial asthma. Primary care doctor is apparently Dr. Brody. She is still having issues with shortness of breath. PAST MEDICAL HISTORY: Apparently, atrial fibrillation, previous CVA, multiple myeloma, and diabetes. PAST SURGICAL HISTORY: Including knee surgery done, foot surgery done. HOME MEDICATIONS: Include: 1. Eliquis 2.5. 2. Metformin 250 twice a day. 3. Toprol-XL 100. 4. Lisinopril 30. 5. Hydrochlorothiazide. 6. Gabapentin. 7. Imbruvica 3 capsules daily. ALLERGIES: FENTANYL. CURRENT MEDICATIONS: She is now on vancomycin and Zosyn. REVIEW OF SYSTEMS: Otherwise, unremarkable. PHYSICAL EXAMINATION: GENERAL: Left-sided CVA. VITAL SIGNS: Temperature 98, pulse 108, respiratory rate 16, saturations oxygen, and blood pressure 187/91. CHEST: Decreased breath sounds in left lung. Right lung unremarkable. CARDIAC: Normal S1 and S2. No gallops. ABDOMEN: No masses. LABORATORY AND DIAGNOSTIC DATA: Sodium is 125, glucose 155. White count 7000, H and H 11 and 32, platelet count is normal. X-ray shows a large right-sided pleural effusion. CT of chest shows cardiomegaly, large right pleural effusion, and atelectasis. No other masses were seen. IMPRESSION: 1. Large right pleural effusion, etiology unclear. 2. Multiple myeloma. 3. CVA, long-term anticoagulation. PLAN: Thoracentesis will be performed. Further recommendations based on above. In the meantime, I agree with empiric antibiotics and supportive care. Consultation note, 70 minutes, 50% direct patient care. Job ID: [id number]
[2018-12-29] MEDS: Apixaban 2.5 MG TAB PO SCH (21:02)
[2018-12-29] MEDS: Gabapentin 100 MG CAP PO SCH (21:02)
[2018-12-29] MEDS: Lisinopril 20 MG TAB PO SCH (21:48)
[2018-12-29] MEDS: Vancomycin HCl 500 MG in Sodium Chloride 0.9% 100 ML IVPB SCH (23:30)
[2018-12-30] MEDS ORDERED: Vancomycin HCl 500 MG in Sodium Chloride 0.9% 100 ML IVPB SCH
[2018-12-30] MEDS: Piperacillin/Tazobactam 3.375 GM in Sodium Chloride 0.9% 100 ML IVPB SCH ×4 (05:21→23:46)
[2018-12-30 05:37] LABS: Anion Gap 13 mmol/L (10-20); BUN (Urea Nitrogen) 30 mg/dL (9.8-20.1); Calc. Creatinine Clearance 50 mL/min (70-130); Calcium 8.1 mg/dL (7.8-10.44); Carbon Dioxide 20 mmol/L (23-31); Chloride 95 mmol/L (98-107); Estimated GFR-MDRD 77; Glucose 87 mg/dL (83-110); Potassium 3.4 mmol/L (3.5-5.1); Sodium 125 mmol/L (136-145)
[2018-12-30 05:43] LABS: Hemoglobin 11.6 g/dL (12.0-16.0); Lymphocytes 13 % (21-51); MDiff Complete? YES; Mean Corpuscular HGB CONC 34.7 g/dL (32.0-36.0); Mean Corpuscular Hemoglobin 29.7 pg (27.0-31.0); Mean Corpuscular Volume 85.6 fL (78.0-98.0); Mean Platelet Volume 9.2 fL (7.4-10.4); Monocytes 12 % (0-10); Neutrophil 75 % (42-75); Platelet Count 157 thou/uL (130-400); RBC Distribution Width 12.6 % (11.5-14.5); Red Blood Cell (RBC) Count 3.91 mill/uL (4.20-5.40); White Blood Cell (WBC) Count 6.7 thou/uL (4.8-10.8)
[2018-12-30] MEDS: Apixaban 2.5 MG TAB PO SCH ×2 (08:30→21:03)
[2018-12-30] MEDS: Calcium Carbonate + Vit D 1 TAB PO SCH (08:30)
[2018-12-30] MEDS: Ferrous Sulfate 325 MG TAB PO SCH (08:30)
[2018-12-30] MEDS: Cyanocobalamin (Vitamin B-12) 1,000 MCG TAB PO SCH (08:30)
[2018-12-30] MEDS: Ascorbic Acid 500 mg Chewable Tablet PO SCH (08:30)
[2018-12-30] MEDS: Potassium Chloride 20 MEQ TAB PO SCH ×2 (08:30→17:13)
[2018-12-30] MEDS: hydrALAZINE 25 MG TAB PO SCH ×3 (08:31→21:06)
[2018-12-30] MEDS: metFORMIN 500 MG TAB PO SCH ×2 (08:32→17:14)
[2018-12-30] MEDS: Gabapentin 100 MG CAP PO SCH ×2 (08:32→21:06)
--- NOTE | 2018-12-30 10:22 | PRG ---
DATE OF SERVICE: 12/30/2018 SUBJECTIVE: This morning, she is better. She is less short of breath. Bloody effusion was drained, which appears to be an exudate. Pathology pending as possibly this could be traumatic. OBJECTIVE: VITAL SIGNS: Blood pressure is 121/80, sats 100%, temperature 97, . CHEST: Decreased breath sounds. No wheezing. CARDIAC: Normal S1 and S2. No gallops. ABDOMEN: No masses. IMPRESSION: 1. Bloody pleural effusion, possibly traumatic. Await cytology. 2. Advanced age. PLAN: Pulmonary villa, we would stop all antibiotics, nothing to suspect any infection. Continue PT, supportive care. We will follow. Job ID: [id number]
--- NOTE | 2018-12-30 11:14 | PDOC.HOSPP ---
- Subjective Encounter Date: 12/30/18 Encounter Time: 11:10 Subjective: f/u for R pleural effusion s/p thoracentesis with 2L removed. Feels much better overall and using O2 1L/min NC. No fever and minimal cough. - Objective Vital Signs & Weight: Vital Signs (12 hours) Temp Pulse Resp BP Pulse Ox 12/30/18 07:31 97.9 F 83 19 121/80 100 12/30/18 04:00 97.8 F 76 20 120/55 L 100 12/30/18 00:00 77 18 110/56 L Weight Weight 118 lb 1.6 oz I&O: 12/29/18 12/30/18 12/31/18 06:59 06:59 06:59 Intake Total 640 Output Total 550 Balance 90 Result Diagrams: 12/30/18 04:47 12/30/18 04:47 Additional Labs: Accuchecks 12/30/18 12/30/18 12/29/18 10:28 05:16 20:09 POC Glucose 141 H 144 H 141 H 12/29/18 17:16 POC Glucose 157 H Microbiology 12/28/18 15:54 Venous blood - Left Hand Blood Culture - Preliminary Specimen has been received and culture in progress. No Growth to date. 12/28/18 15:46 Venous blood - Left Arm Blood Culture - Preliminary Specimen has been received and culture in progress. No Growth to date. Laboratory Tests 12/28/18 12/28/18 12/29/18 15:46 15:46 04:33 WBC 10.8 Hgb 12.2 Neutrophils % 82.0 H 77.2 H Sodium 126 L Microbiology 12/29/18 11:35 Pleural fluid Direct Acid Fast Bacilli Smear - Final 12/29/18 11:35 Pleural fluid Body Fluid Culture - Preliminary 12/28/18 15:54 Venous blood - Left Hand Blood Culture - Preliminary Specimen has been received and culture in progress. No Growth to date. 12/28/18 15:46 Venous blood - Left Arm Blood Culture - Preliminary Specimen has been received and culture in progress. No Growth to date. 12/28/18 15:40 Urine alvarado catheter Urine Culture - Preliminary Laboratory Tests 12/28/18 12/28/18 12/29/18 15:46 15:46 04:33 WBC 10.8 Hgb 12.2 Neutrophils % 82.0 H 77.2 H Sodium 126 L EKG Reviewed by me: Yes (Tele - A-fib in 70's) Hospitalist ROS - Medication Medications: Active Medications Generic Name Dose Route Start Last Admin Trade Name Vidal PRN Reason Stop Dose Admin Apixaban 2.5 mg 12/29/18 21:00 12/30/18 08:30 Eliquis PO 2.5 mg BID YUNG Administration Ascorbic Acid 500 mg 12/30/18 09:00 12/30/18 08:30 Vitamin C PO 500 mg DAILY YUNG Administration Calcium/Vitamin D 1 tab 12/30/18 09:00 12/30/18 08:30 Caltrate 600 + Vit D PO 1 tab DAILY YUNG Administration Cyanocobalamin 1,000 mcg 12/30/18 09:00 12/30/18 08:30 Vitamin B-12 PO 1,000 mcg DAILY YUNG Administration Ferrous Sulfate 325 mg 12/30/18 09:00 12/30/18 08:30 Feosol PO 325 mg DAILY YUNG Administration Gabapentin 100 mg 12/29/18 21:00 12/30/18 08:32 Neurontin PO 100 mg BID YUNG Administration Hydralazine HCl 25 mg 12/29/18 15:00 12/30/18 08:31 Apresoline PO Not Given TID YUNG Piperacillin Sod/Tazobactam 100 mls @ 200 mls/hr 12/28/18 23:59 12/30/18 05: 21 Sod 3.375 gm/ Sodium Chloride IVPB 100 mls Q6HR YUNG Administration Vancomycin HCl 500 mg/ Sodium 100 mls @ 100 mls/hr 12/30/18 00:00 12/29/18 23 :30 Chloride IVPB 100 mls 0000,1200 YUNG Administration Lisinopril 30 mg 12/29/18 21:00 12/29/18 21:48 Zestril PO Not Given HS YUNG Metformin HCl 250 mg 12/29/18 17:00 12/30/18 08:32 Glucophage PO 250 mg BID-WM YUNG Administration Metoprolol Succinate 100 mg 12/30/18 09:00 12/30/18 08:31 Toprol Xl PO Not Given DAILY YUNG (Ibrutinib [ 3 each 12/30/18 09:00 12/30/18 08:31 Imbruvica] 3 Capsule PO 3 each ) DAILY YUNG Administration Potassium Chloride 10 meq 12/30/18 09:00 12/30/18 08:30 K-Dur PO 10 meq DAILY YUNG Administration Sodium Chloride 10 ml 12/29/18 04:27 12/30/18 05:22 Flush - Normal Saline IVF 10 ml PRN PRN Administration Saline Flush Tramadol HCl 50 mg 12/29/18 11:09 12/29/18 21:14 Ultram PO 50 mg TID PRN Administration Moderate to Severe Pain (4-10) - Exam General Appearance: NAD, awake alert Eye: PERRL, anicteric sclera ENT: normocephalic atraumatic, no oropharyngeal lesions Neck: supple, symmetric, no JVD, no thyromegaly, no lymphadenopathy Heart: no gallops, no rubs, irregular Heart - other findings: S1, S2 Respiratory: CTAB, no wheezes, no ronchi Respiratory - other findings: mildly diminished in R base Gastrointestinal: soft, non-tender, non-distended, normal bowel sounds, no palpable masses Extremities: no cyanosis, no clubbing, no edema Skin: normal turgor Neurological: no new deficit Psychiatric: oriented to person, oriented to place Hosp A/P (1) Acute respiratory failure with hypoxia Code(s): J96.01 - ACUTE RESPIRATORY FAILURE WITH HYPOXIA Status: Acute Plan: Improved s/p thoracentesis, O2 prn, wean as tolerated (2) Recurrent right pleural effusion Code(s): J90 - PLEURAL EFFUSION, NOT ELSEWHERE CLASSIFIED Status: Acute Plan: See above, continue IV abx another 24h then d/c (3) Chronic atrial fibrillation Code(s): I48.2 - CHRONIC ATRIAL FIBRILLATION Status: Chronic Plan: Rate controlled, continue Eliquis (4) Chronic anticoagulation Code(s): Z79.01 - MCFP (CURRENT) USE OF ANTICOAGULANTS Status: Chronic (5) Hyponatremia Code(s): E87.1 - HYPO-OSMOLALITY AND HYPONATREMIA Status: Chronic Plan: stable (6) Severe muscle deconditioning Code(s): R29.898 - OTH SYMPTOMS AND SIGNS INVOLVING THE MUSCULOSKELETAL SYSTEM Status: Chronic (7) Bedbound Code(s): Z74.01 - BED CONFINEMENT STATUS Status: Chronic - Plan continue antibiotics, social media specialist, respiratory therapy Stable currently Await final pleural fluid analysis, appears mixed-type currently Continue empiric Zosyn/Vanc another 24h then d/c Resume home Eliquis Resume home BP regimen AM lab: BMP Likely home in 24h
[2018-12-30] MEDS ORDERED: Potassium Chloride 20 MEQ TAB PO SCH (11:15)
[2018-12-30] MEDS ORDERED: Vancomycin HCl 1 GM in Premix Bag 1 BAG IVPB SCH (12:00)
[2018-12-30] MEDS: Vancomycin HCl 500 MG in Sodium Chloride 0.9% 100 ML IVPB SCH (12:35)
--- NOTE | 2018-12-30 13:16 | PQF ---
DATE: 12-30-18 ATTN: DR. RAYMOND CAMACHO Please exercise your independent, professional judgment in responding to the clarification form. Clinical indicators are provided on the bottom of this form for your review Please check appropriate box(s): [ x ] UTI [ ] Contaminated urine specimen without UTI [ ] Other diagnosis [ ] Unable to determine In addition, please specify: Present on Admission (POA): [ x ] Yes [ ] No [ ] Unable to determine For continuity of documentation, please document condition throughout progress notes and discharge summary. Thank You. CLINICAL INDICATORS - SIGNS / SYMPTOMS / LABS URINE: 12-28-18: UR LEUKOCYTE ESTERASE SMALL H URINE RBC 21-50 A URINE WBC GREATER THAN 50 A URINE BACTERIA 2+ A UR YEAST W HYPHAE 2+ A URINE YEAST (BUDDING) 4+ A RISK FACTORS ER 12-28-18: REPORTS RECENT HOSPITALIZATION FOR UTI TWO WEEKS AGO, WITH NO HOME ANTIBIOTICS. PN DR. CAMACHO 12-29-18: SEVERE MUSCLE DECONDITIONING, BEDBOUND TREATMENT: ER 12-28-18: VANCOMYCIN IV, LEVAQUIN IV, ZOSYN (This form is maintained as a part of the permanent medical record) 2014 [employer] All Rights Reserved CÉSAR [email or web address] Office: [phone] [facility]
[2018-12-30] MEDS: Lisinopril 20 MG TAB PO SCH (21:04)
[2018-12-30 23:28] LABS: Vancomycin, Trough 29.2 ug/mL
[2018-12-31] MEDS: Piperacillin/Tazobactam 3.375 GM in Sodium Chloride 0.9% 100 ML IVPB SCH ×2 (05:46→13:18)
[2018-12-31] MEDS ORDERED: Fluconazole 100 MG TAB PO SCH (08:00)
[2018-12-31 08:41] LABS: Anion Gap 15 mmol/L (10-20); BUN (Urea Nitrogen) 26 mg/dL (9.8-20.1); Calc. Creatinine Clearance 56 mL/min (70-130); Calcium 8.4 mg/dL (7.8-10.44); Carbon Dioxide 19 mmol/L (23-31); Chloride 101 mmol/L (98-107); Estimated GFR-MDRD 89; Glucose 100 mg/dL (83-110); Potassium 4.5 mmol/L (3.5-5.1); Sodium 130 mmol/L (136-145)
[2018-12-31] MEDS: metFORMIN 500 MG TAB PO SCH (09:42)
[2018-12-31] MEDS: Calcium Carbonate + Vit D 1 TAB PO SCH (09:42)
[2018-12-31] MEDS: Potassium Chloride 20 MEQ TAB PO SCH ×2 (09:43→09:45)
[2018-12-31] MEDS: Ferrous Sulfate 325 MG TAB PO SCH (09:43)
[2018-12-31] MEDS: Gabapentin 100 MG CAP PO SCH (09:43)
[2018-12-31] MEDS: Apixaban 2.5 MG TAB PO SCH (09:43)
[2018-12-31] MEDS: Cyanocobalamin (Vitamin B-12) 1,000 MCG TAB PO SCH (09:43)
[2018-12-31] MEDS: hydrALAZINE 25 MG TAB PO SCH (09:44)
[2018-12-31] MEDS: Ascorbic Acid 500 mg Chewable Tablet PO SCH (09:44)
[2018-12-31] MEDS ORDERED: Vancomycin HCl 750 MG in Sodium Chloride 0.9% 250 ML 250 ML IVPB SCH (12:00)
[2018-12-31] MEDS ORDERED: Vancomycin HCl 500 MG in Sodium Chloride 0.9% 100 ML IVPB SCH (12:00)
[2018-12-31 13:21] VITALS: BP 129/91; TEMP 98.9
--- NOTE | 2019-01-01 04:42 | DIS ---
DATE OF ADMISSION: 12/28/2018 DATE OF DISCHARGE: 12/31/2018 DISCHARGE DIAGNOSES: 1. Acute hypoxic respiratory failure secondary to #2, resolved. 2. Recurrent right pleural effusion, status post thoracentesis with 2 L removed, stable. 3. Urinary tract infection with Enterococcus faecalis and presumptive Addis species. 4. Chronic atrial fibrillation with chronic Eliquis. 5. Chronic anticoagulation with Eliquis. 6. Hyponatremia, chronic. 7. Severe muscle deconditioning. 8. Bed-bound status. 9. Chronic indwelling Fair catheter. CONSULTATIONS: Dr. Reddy with Pulmonology Service. PERTINENT LAB AND X-RAY FINDINGS: Sodium ranged between 124 to 130, potassium ranged between 3.4 to 4.5. Lactic acid level 1.0. Troponin I negative x3. Albumin 3.4. CBC showed a hemoglobin ranged between 11.3 to 12.2. Urine culture dated 12/28/2018 showed greater than 100,000 colonies of Enterococcus faecalis and greater than 100,000 colonies of presumptive Addis albicans. Blood cultures x2 dated 12/28/2018 showed no growth at 48 hours. AFB smear dated 12/29/2018 negative. AFB culture showed no growth to date. CT of the chest dated 12/28/2018 showed large right pleural effusion with atelectasis to the right lower lobe. Biatrial enlargement noted. Portable chest x-ray dated 12/28/2018 showed moderate size right pleural effusion. Pleural fluid cytology dated 12/29/2018 showed numerous neutrophils and reactive mesothelial cells. 2D transthoracic echocardiogram dated 12/30/2018 showed ejection fraction of 60% to 65%. Severe biatrial enlargement. [id number] tricuspid regurgitation. HOSPITAL COURSE: The patient was initially admitted to the telemetry unit after presenting with severe shortness of breath and hypoxia with chest imaging confirming a large right-sided pleural effusion. The patient with prior history of right-sided pleural effusion with recurrence, likely multifactorial. The patient was evaluated by the Pulmonology Service, undergoing thoracentesis with successful evacuation of 2 L of straw-colored pleural fluid. The patient had rapid improvement in overall respiratory status with decreasing oxygen requirements. Evaluation of the pleural fluid showed mixed type sample and the patient was treated with empiric antibiotic therapy to include Zosyn and vancomycin during her hospital course. The patient was also noted with urinary tract infection with Enterococcus faecalis and Addis species. The patient was transitioned to ampicillin after review of sensitivity pattern. Overall, the patient did remain clinically stable during the hospital course. I have examined the patient at the time of discharge and discussed followup instructions. The patient verbalized understanding and in agreement, ready for discharge on 12/31/2018. DISCHARGE MEDICATIONS: 1. Ampicillin 500 mg p.o. q.6 hours x5 days. 2. Eliquis 2.5 mg p.o. b.i.d. 3. Vitamin C 500 mg p.o. daily. 4. Multivitamin 1 tablet p.o. daily. 5. Clonidine 0.1 mg p.o. t.i.d. 6. Vitamin B12 1000 mcg p.o. daily. 7. Colace 100 mg p.o. daily. 8. Ferrous sulfate 325 mg p.o. daily. 9. Gabapentin 100 mg p.o. b.i.d. 10. Hydralazine 25 mg p.o. t.i.d. 11. Imbruvica 140 mg three capsules p.o. daily. 12. Lisinopril 30 mg p.o. at bedtime. 13. Metformin 250 mg p.o. b.i.d. 14. Toprol-XL 100 mg p.o. daily. 15. K-Dur 10 mEq p.o. daily. 16. Tramadol 50 mg p.o. t.i.d. p.r.n. FOLLOWUP: The patient is to follow up with Dr. Hira Wallace within 7 days of discharge. CONDITION ON DISCHARGE: Fair. ACTIVITY: Ad-roshan. Bed-bound status at baseline. DIET: Regular. CODE STATUS: Full. SPECIAL INSTRUCTIONS: The patient is to continue Home Health Services for intermediate and Fair catheter care. DISPOSITION: Home with [facility] on 12/31/2018. Total time preparing and coordinating discharge, 33 minutes. Job ID: [id number]
== END 2018-12-31 15:00 | disposition home or self-care (01) | DRG 186 ==
LOC: ERS 15:22 → 2NO 18:13 → MERGE 18:13
PROVIDERS: ADMIT Internal Medicine; ATTEND Internal Medicine
PROC: 0W993ZZ Drainage of Right Pleural Cavity, Percutaneous Approach (ICD-10-PCS; principal; 2018-12-29)
DX: J90 Pleural effusion, not elsewhere classified (principal); J96.01 Acute respiratory failure with hypoxia; C90.00 Multiple myeloma not having achieved remission; E87.1 Hypo-osmolality and hyponatremia; N39.0 Urinary tract infection, site not specified; I11.0 Hypertensive heart disease with heart failure; I50.9 Heart failure, unspecified; I48.2 Chronic atrial fibrillation; E11.9 Type 2 diabetes mellitus without complications; E78.5 Hyperlipidemia, unspecified; B95.2 Enterococcus as the cause of diseases classified elsewhere; Z90.49 Acquired absence of other specified parts of digestive tract; Z90.710 Acquired absence of both cervix and uterus; Z79.899 Other long term (current) drug therapy; Z79.01 Long term (current) use of anticoagulants; Z74.01 Bed confinement status
CPT/HCPCS: 36415; 36416; 71045; 71250; 80048; 80053; 80202; 81003; 81015; 82150; 82945; 83605; 83615; 83986; 84157; 84478; 84484; 85007; 85025; 85027; 85060; 87040; 87070; 87077; 87086; 87116; 87186; 87205; 87206; 88112; 88305; 89051; 93005; 93306; 94760; 96365; 96366; 96367; 96368; J1642; J1650; J1956; J2543; J3370; J3490